=== PATIENT | female | born 1955 | race Caucasian/White ===

== ENCOUNTER → 2016-09-06 | Outpatient (CLI) | payer MEDICARE, BC | END | disposition home or self-care (01) | LOC: LABWHC1 10:43 | PROVIDERS: ATTEND Internal Medicine | DX: E21.3 Hyperparathyroidism, unspecified (principal) | CPT/HCPCS: 36415; 83970 ==

== ENCOUNTER → 2016-11-13 | Outpatient (CLI) | payer MEDICARE, BC ==
--- NOTE | 2016-11-15 08:37 | MM ---
Reason for exam: screening (asymptomatic). Last mammogram was performed 1 year and 8 months ago. History: Patient is postmenopausal and had first child at age 30. Family history of breast cancer in maternal grandmother. Took estrogen for 1 year 2 months. Physical Findings: A clinical breast exam by your physician is recommended on an annual basis and results should be correlated with mammographic findings. MG 3D Screening Mammo W/Cad Bilateral CC and MLO view(s) were taken. Prior study comparison: March 23, 2015, bilateral MG 3d screening mammo w/cad. June 25, 2014, bilateral MG screening mammo w CAD. February 20, 2013, bilateral digital screening mammo w/CAD. April 19, 2011, bilateral digital screening mammo w/CAD. There are scattered fibroglandular densities. There is chronic nodularity in the right breast. Nodular asymmetry lateral right breast anterior to middle depth suspected to represent summation on 3D images. Spot tomosynthesis recommended for confirmation. Nodular focal asymmetry anterior upper outer quadrant left breast appear more defined. ASSESSMENT: Incomplete: need additional imaging evaluation, BI-RAD 0 RECOMMENDATION: Special view mammogram of both breasts. If lesion persists on supplemental views, image directed ultrasound is recommended. [facility] will attempt to contact patient to return for supplemental views and ultrasound if indicated.
== END | disposition home or self-care (01) ==
LOC: RADMAMWWP 15:06
PROVIDERS: ATTEND Internal Medicine
DX: Z12.31 Encounter for screening mammogram for malignant neoplasm of breast (principal)
CPT/HCPCS: 77063; G0202

== ENCOUNTER → 2016-11-19 | Outpatient (CLI) | payer MEDICARE, BC ==
--- NOTE | 2016-11-19 09:21 | MM ---
Reason for exam: additional evaluation requested from abnormal screening. Last mammogram was performed less than 1 month ago. History: Patient is postmenopausal and had first child at age 30. Family history of breast cancer in maternal grandmother. Took estrogen for 1 year 2 months. Physical Findings: Nurse did not find any significant physical abnormalities on exam. MG 3D Work Up W/Cad DONNA Bilateral spot compression CC, spot compression MLO, and LM view(s) were taken. Prior study comparison: November 13, 2016, bilateral MG 3d screening mammo w/cad. March 23, 2015, bilateral MG 3d screening mammo w/cad. June 25, 2014, bilateral MG screening mammo w CAD. The breast tissue is heterogeneously dense. This may lower the sensitivity of mammography. The previously described abnormalities do not persist on additional views. These results were verbally communicated with the patient and result sheet given to the patient on 11/19/16. ASSESSMENT: Negative, BI-RAD 1 RECOMMENDATION: Return to routine screening mammogram schedule for both breasts.
== END | disposition home or self-care (01) ==
LOC: RADMAMWWP 08:23
PROVIDERS: ATTEND Internal Medicine
DX: R92.8 Other abnormal and inconclusive findings on diagnostic imaging of breast (principal)
CPT/HCPCS: G0204; G0279

== ENCOUNTER → 2017-06-27 | Outpatient (CLI) | payer MEDICARE, BC ==
--- NOTE | 2017-06-27 18:07 | PN ---
PROGRESS NOTE DATE OF SERVICE: 06/27/2017 A 62-year-old lady has been followed in the sleep center for treatment of obstructive sleep apnea-hypopnea syndrome. Last time I saw patient about 1-1/2 years ago, she continued to use her equipment successfully every night for the whole night without any significant problems related to mask, pressure or humidification. Sometimes she adjusting her humidity a little bit more up or down, depending with the humidity situation during this time of the year. I checked her CPAP unit. Usage is 100% more than 4 hours. Average usage is 7.8 hours. Pressure is 13 cm of water. Leak is 80 L per minute, which is acceptable. Apnea- hypopnea index reading for the last month only 1.2, which is perfect. [place] Sleepiness Scale is 2, which is totally normal. MEDICATIONS: 1. Claritin. 2. Fluticasone. 3. Fenofibrate. 4. Lortab. 5. Xanax. 6. Flexeril. 7. Ezetimibe. PHYSICAL EXAMINATION: GENERAL Patient in no distress. VITAL SIGNS BP 143/69, HR 90, RR 16, height 5 feet 3 inches, weight 187, BMI 33, temp 97.4, oxygen saturation at room air 96%. HEENT PERRLA, EOMI, evaluation of oropharynx showed tongue protrudes midline, extremely low position of soft palate. Neck Supple, no JVD. Thyroid is not palpable. LUNGS Clear to percussion and to auscultation. Good air exchange. No wheezing or rhonchi. HEART S1, S2 regular. No murmurs, gallops, or rubs. ABDOMEN Slightly obese, soft and nontender. Bowel sounds are present. No organomegaly appreciated. EXTREMITIES No clubbing or cyanosis. CODING QUALITY ANALYST Awake, alert, and oriented X3. Cranial nerves 2 to 7 intact. There is no fasciculation or atrophy. noted. No focal deficits observed. IMPRESSION: 1. Obstructive sleep apnea-hypopnea syndrome. Patient demonstrated 100% compliance with treatment, benefitting from treatment. 2. Obesity. Patient lost about 8 pounds of weight since previous visit. 3. History of depression. 4. History of migraine. 5. Seasonal allergies. 6. Status post surgical treatment of sinus problem. 7. History of peptic ulcer disease. 8. History of chronic back pain. PLAN: 1. Patient will continue to use her CPAP equipment every night. 2. Continue losing weight. 3. Prescription for all necessary CPAP supplies, including mask, tube, filters. 4. No driving if feeling any sleepiness. 5. Followup visit in 1 year or earlier if patient has any problems. Thank you very much for allowing me to participate in the management of your patient. Sincerely, Brandon Murray MD, PhD, FAASM Diplomat of [employer] [place] [employer] Maintenance Service Supervisor of [facility] [place] MMODL / ZAKIAN: [phone] /
== END | disposition home or self-care (01) ==
LOC: SLEEP 15:16
PROVIDERS: ATTEND Internal Medicine
DX: G47.33 Obstructive sleep apnea (adult) (pediatric) (principal); E66.9 Obesity, unspecified; J30.2 Other seasonal allergic rhinitis; Z86.59 Personal history of other mental and behavioral disorders; Z86.69 Personal history of other diseases of the nervous system and sense organs; Z98.890 Other specified postprocedural states; Z87.11 Personal history of peptic ulcer disease; Z87.39 Personal history of other diseases of the musculoskeletal system and connective tissue; Z99.89 Dependence on other enabling machines and devices; Z79.899 Other long term (current) drug therapy; Z79.51 Long term (current) use of inhaled steroids

== ENCOUNTER → 2017-07-29 | Outpatient (CLI) | payer MEDICARE, BC ==
[2017-07-29 13:22] VITALS: BP 127/80; PULSE 90; RESP 16; TEMP 98.6
--- NOTE | 2017-07-29 18:29 | P.CONS ---
History of Present Illness - Reason for Consult Consult date: 07/29/17 - History of Present Illness This is a 62 years old female, with a chronic history of low back pain, started more than 15 years ago, patient had 2 back surgery in the lumbar area, the last surgery was done in 2002, and patient she continue to have some back pain issues after the surgery, but 7 years ago she reported that the intensity of the pain increased significantly, and is interfering with her quality of life and activity of daily livings, patient not able to function, because of the intensity of the pain, but she reported that she had no change in the bowel movement or urination, and there is no motor or sensory deficit, no fever or night sweats, and the pain mostly, and the low back area right side radiated towards the right hip and towards the anterior and medial aspect of the right thigh, associated with numbness and tingling sensation, the intensity of the pain 7/10 and increases occasionally to 10 over 10, it is constant, aggravated with any activity Past Medical History Past Medical History: Asthma, GERD/Reflux, Hyperlipidemia, Osteoarthritis (OA), Sleep Apnea/CPAP/BIPAP, Thyroid Disorder Additional Past Medical History / Comment(s): CHRONIC BACK PAIN. MILD NEUROPATHY. SEASONAL ALLERGIES History of Any Multi-Drug Resistant Organisms: None Reported Past Surgical History: Back Surgery, Hysterectomy, Orthopedic Surgery Additional Past Surgical History / Comment(s): CERVICAL FUSION C6,C7,T1. LUMBAR FUSION L4,L5,S1 ANTERIOR INTERBODY LUMBAR LAMINECTOMY. FUSION WITH METAL PLATE AT L4,L5.S1. CRUSHING RIGHT HAND RECONSTRUCTION. SINUS SURGERY. PARATHYROIDECTOMY. Past Anesthesia/Blood Transfusion Reactions: Postoperative Nausea & Vomiting ( PONV) Past Psychological History: Anxiety, Depression Smoking Status: Former smoker Past Alcohol Use History: Occasional Past Drug Use History: None Reported Medications and Allergies Home Medications Medication Instructions Recorded Confirmed Type ALPRAZolam [Xanax] 0.5 mg PO DAILY PRN 07/29/17 07/29/17 History Albuterol Inhaler [Ventolin Hfa 2 puff INHALATION QID PRN 07/29/17 07/29/17 History Inhaler] Calcium Carb/Vitamin D3/Vit K1 1 tab PO DAILY 07/29/17 07/29/17 History [Citracal Soft Chew] Cyclobenzaprine [Flexeril] 10 mg PO HS PRN 07/29/17 07/29/17 History Ergocalciferol (Vitamin D2) 50,000 unit PO Q7D 07/29/17 07/29/17 History [Vitamin D2] Ezetimibe 10 mg PO DAILY 07/29/17 07/29/17 History Fluticasone Nasal [place] [Flonase 1 spray NASAL DIRECTED PRN 07/29/17 History Nasal [place]] Glucosam/Eddie-Msm1/C/Jim/Bosw 1 tab PO DAILY 07/29/17 07/29/17 History [Glucosamine-Chondroitin Tablet] Hydrocodone/Acetaminophen [[place] 1.5 tab PO BID PRN 07/29/17 07/29/17 History 10-325] Loratadine [Claritin] 10 mg PO DAILY PRN 07/29/17 07/29/17 History Methocarbamol [Robaxin] 500 mg PO DAILY PRN 07/29/17 07/29/17 History Mometasone/Formoterol [Dulera 100 2 puff INHALATION QID PRN 07/29/17 07/29/17 History Mcg/5 Mcg Inhaler] Non-Formulary Drug [Non Formulary 2 tab PO DAILY 07/29/17 07/29/17 History Drug] Nystatin [Nystop] 60 gm PO DAILY 07/29/17 07/29/17 History [place]-3 Fatty Acids/Fish Oil [Fish 1 cap PO DAILY 07/29/17 07/29/17 History Oil 1,000 mg Softgel] Omeprazole [PriLOSEC] 20 mg PO DIRECTED 07/29/17 07/29/17 History Phenylephrine HCl [Sudafed PE] 10 mg PO HS PRN 07/29/17 07/29/17 History Saliva Stimulant Agents Comb.3 1 spray PO HS PRN 07/29/17 07/29/17 History [Biotene Moisturizing Mouth] Allergies Allergy/AdvReac Type Severity Reaction Status Date / Time adhesive tape AdvReac Intermediate SEVERE Verified 07/29/17 12:37 IRRITATION ibuprofen [From Motrin] AdvReac Intermediate SEVERE Verified 07/29/17 12:37 UPSET STOMACH Physical Exam Vitals: Vital Signs Temp Pulse Resp BP Pulse Ox 07/29/17 12:30 98.6 F 90 16 127/80 99 Intake and Output 07/29/17 07/29/17 07/29/17 06:59 14:59 22:59 Other: Weight 84.368 kg Social history : not smoker , NO ETOH , NO Illegal drugs use . Review of Systems : 1- Constitutional : no chills , no fever , no night sweats , 2- Ears : no ear discharge , no change in hearing 3-Nose, Mouth ,Throat ; no bleeding gums, no sore throat , no epistaxis , 4-Cardiovascular : Denies chest pain, , no orthopnea , no palpitation 5-Respiratory : Denies cough , no dyspnea , no hemoptysis 6-Gastrointestinal :, no change in bowel habits , no coffee- ground emesis . 7-Genitourinary : No hematuria , no discharge , no incontinence, 8-Musculoskeletal : No gait dysfunction , report low back pain , 9- Neurological : no ataxia , no tremor , no sezure , 10-Psychatric , no suicidal ideation no hallucination 11- Endocrine : no cold intolerence , no polyuria , no polydypsia , 12-Hematologic : no easy bleeding , no easy brusing , 13-Allergic / immunology : no angioedema , no wheezing ,no allergic rhinitis 14-Integumentary : no brttle nails , no change hair / nails , no foot/leg ulcers . Physical Examinations : 1-Constitutional : Cooperative , not in acute distress . 2-HEENT : nech ; supple , no Lymphadenopathy , no Thyromegaly , :eyes , no icterus, no photophobia . ENT : , normal oropharynx , no Thrush 3- Respiratory : Chest clear to auscultations Bilaterally , no wheezing . 4- Cardiovascular : regular rate and rhythem , S1 , S2 , no S3 , no S4. 5- Gastrointestinal: abdomen soft no tenderness , no organomegally . 6- Genitourinary : Defferred . 7-Integumentary : No cellulitis , no ulcers , normal skin turgor , no cyanotic . 8- neurologic : Cranial nerve II to XII intact , no focal neurological deffecit 9-psychatric : alert , oriented X 3 , appropriate affect , intact judgment and insight . 10-Lymphatic : no Lymphadenopathy. 11- musculoskeltal: normal gait Cervical Spine motor stregnth in the deltoid and biceps, normal right side , normal Left side motor stregnth biceps and the wrist extensors normal right side ,normal left side . motor stregnth in the triceps muscle . normal Right side , normal Left side Lumber spine moter stegnth lower extremities ,thigh and legs 5/5 Right side , 5/5 Left side deep tendon reflexes : normal Knee Jerk , normal ankle Jerk positive lumber facet Loading Test Range of motion of the lumbar spine Flexion 30 degrees, extension 10 degrees strait leg raising test negative bilaterally Fabere test negative bilaterally Sever tenderness over the right trochanteric bursa Results Comments: MRI of the lumbar spine= L2-3 facet arthropathy and foraminal stenosis, L3 4 right lateral bulging disc disease, with facet hypertrophy L4 5 right-sided foraminal stenosis, L5-S1 foraminal stenosis Assessment and Plan Plan: Assessment and plan= 1-lumbar radiculopathy. 2-lumbar foraminal stenosis. 3-lumbar facet arthropathy. 4-right trochanteric bursitis. Patient will be good candidate to have right- sided transforaminal epidural steroid injection L2-3 ,and L3 4 under fluoroscopy guidance (Patient reported that 95% of her pain on the right side, and it will be more beneficial to target the medication towards the painfull area) Procedure risk and benefits and alternatives discussed with the patient and she agreed with proceeding. Patient will continue with her medication/ prescription refill from her primary care. Time with Patient: Greater than 30
== END | disposition home or self-care (01) ==
LOC: PNWHC3 12:13
PROVIDERS: ATTEND Specialist
DX: M99.73 Connective tissue and disc stenosis of intervertebral foramina of lumbar region (principal); M54.16 Radiculopathy, lumbar region; M46.96 Unspecified inflammatory spondylopathy, lumbar region; M70.61 Trochanteric bursitis, right hip; M19.90 Unspecified osteoarthritis, unspecified site; E78.5 Hyperlipidemia, unspecified; K21.9 Gastro-esophageal reflux disease without esophagitis; J45.909 Unspecified asthma, uncomplicated; Z79.891 Long term (current) use of opiate analgesic; Z91.09 Other allergy status, other than to drugs and biological substances; Z79.899 Other long term (current) drug therapy; Z88.6 Allergy status to analgesic agent; Z87.891 Personal history of nicotine dependence
CPT/HCPCS: 99211

== ENCOUNTER 2017-07-30 08:23 | Day surgery (SDC) | payer MEDICARE, BC ==
--- NOTE | 2017-07-30 09:33 | P.PCN ---
Date of Procedure: 07/30/17 Condition: stable Disposition: PACU Description of Procedure: PREOPERATIVE DIAGNOSIS: Lumbar radiculopathy POSTOPERATIVE DIAGNOSIS: Lumbar radiculopathy PROCEDURE 1. Transforaminal epidural steroid injection under fluoroscopic guidance RIGHT L2, L3 2. Lumbar epidurogram ANESTHESIA: Local with 1% lidocaine 3 ml ; IV sedation with Versed 2 mg and fentanyle 100 micrograms. PROCEDURE INDICATION: The patient with low back pain and radiculopathy symptoms unresponsive to conservative treatment. PROCEDURE DESCRIPTION / TECHNIQUE: The patient was seen and identified in the preoperative area. Risks, benefits, complications, and alternatives were discussed with the patient. The patient agreed to proceed with the procedure and signed the consent. IV was started, and vital signs were stable. Patient was taken to the OR and time out was completed. The patient was placed in the prone position on procedure table and a pillow was placed under the abdomen to reduce lumbar lordosis. The lumbosacral area was prepped and draped in the usual sterile fashion. Vital signs were closely monitored during the procedure. Conscious sedation was used. Using oblique fluoroscopy, the chin of the ``Hair dog at RIGHT L2 pedicle and the skin and deeper tissues just below was localized with 1% lidocaine. Subsequently, a 22-gauge 3.5-inch spinal needle was advanced under a tunneled view fluoroscopic guidance just underneath the chin of the ``Hair dog RIGHT L2. Under lateral fluoroscopy, the needle was then advanced to the posterior border of the L2-L3 interforaminal space. After negative aspiration of CSF and blood and with no paresthesias, 1 mL of Omnipaque-240 contrast dye was injected excellent epidurogram and outlining L2 nerve root. Subsequently, of the 10ml solution consisting of 10mg/ml dexamethasone with 8 ml PF normal saline, and 1 ml 0.25% marcaine , 5ml injected at L2-L3 space. Needle was removed and the same procedure was repeated at the Right L3-L4 space. At the end of the procedure, skin was cleansed, and bandages were applied. COMPLICATIONS: None COMMENTS: DISPOSITION / PLANS: The patient was placed in a supine position and transferred to the recovery area in a stable condition for observation. There was no evidence of lower extremity motor or sensory deficit after the procedure. Patient was discharged from the recovery room after meeting discharge criteria. Home discharge instructions were given to the patient by the staff. The patient was reexamined prior to discharge. We'll repeat procedure in 4 weeks time
[2017-07-30] MEDS ORDERED: LACTATED RINGERS 1,000 ML IV SCH (09:45)
[2017-07-30 09:47] VITALS: TEMP 98.1
[2017-07-30] MEDS ORDERED: LACTATED RINGERS 1,000 ML IV ONE (10:02)
[2017-07-30] MEDS ORDERED: LIDOCAINE 1% 20 ML VIAL (10MG/ML) FOR IV START INTRADERMA ONE (10:03)
[2017-07-30 10:37] VITALS: BP 116/69
[2017-07-30 10:57] VITALS: PULSE 71; RESP 20
[2017-07-30] MEDS ORDERED: IV FLUID CONTINUATION 1,000 ML IV ONE (10:58)
--- NOTE | 2017-07-30 11:26 | FL ---
EXAMINATION TYPE: FL guided pain mgmt statistic DATE OF EXAM: 07/30/2017 HISTORY: Flouroscopy time 18 seconds of fluoroscopy provided. IMPRESSION: 1. Fluoroscopy time.
== END 2017-07-30 11:05 | disposition home or self-care (01) ==
LOC: ORPAIN 08:23
PROVIDERS: ATTEND Anesthesiology
DX: M54.16 Radiculopathy, lumbar region (principal); Z91.048 Other nonmedicinal substance allergy status; Z88.6 Allergy status to analgesic agent; Z98.1 Arthrodesis status
CPT/HCPCS: 64483; 64484; J2250; J1100; Q9966; 99152

== ENCOUNTER 2017-08-19 07:03 | Day surgery (SDC) | payer MEDICARE, BC ==
[2017-08-15 12:42] VITALS: BMI 31.7
[~2017-08-19 07:03] MED LIST: LACTATED RINGERS 1,000 ML IV SCH
[2017-08-19 08:16] VITALS: TEMP 98.1
[2017-08-19] MEDS ORDERED: LIDOCAINE 1% 20 ML VIAL (10MG/ML) FOR IV START INTRADERMA ONE (08:17)
--- NOTE | 2017-08-19 09:22 | P.PCN ---
Preoperative Diagnosis: Lumbar postlaminectomy pain syndrome Right lumbar radiculopathy Postoperative Diagnosis: Same as above Procedure(s) Performed: Transforaminal epidural steroid injection for levels L2-3,and L3-4 on the right side under fluoroscopic guidance Anesthesia: MAC (IV conscious sedation with 2 mg of Versed) Surgeon: Jesus Ramsey Condition: stable Disposition: PACU Description of Procedure: . The patient was seen and identified in the preoperative area. Risks, benefits , complications, and alternatives were discussed with the patient. The patient agreed to proceed with the procedure and signed the consent. IV was started, and vital signs were stable. Patient was taken to the OR and time out was completed. The patient was placed in the prone position on procedure table and a pillow was placed under the abdomen to reduce lumbar lordosis. The lumbosacral area was prepped and draped in the usual sterile fashion. Critical pause was taken. Vital signs were closely monitored during the procedure. Conscious sedation was used during the procedure to decrease patients anxiety. Lidocaine 1% was used to numb the skin up at the target points that were chosen as follows: For the L2-L3 level the target point was at the 6 o'clock position of L2 pedicle in the right oblique view. The right view was obtained by scoring of the L2 on L3 vertebra on the AP view of fluoroscopy then the C-arm was tilted to the right oblique position to an angle at which the superior articular process of the lower vertebra wouldn't point to the middle of the pedicle above it at the 6 o'clock position as mentioned above and the right oblique angle of about: Then I used 3-1/2 inch 22-gauge Quincke spinal needle to get to the target point mentioned above by touching the inferior edge of the L2 pedicle and then walking off the bone and into the superior part of the L2-L3 foramen using the lateral view of fluoroscopy. I then injected 1 mL of Isovue contrast dye which showed typical epidurogram around the L2 nerve root and into the epidural space. Then I injected 1 mL of Marcaine 0.25% +40 mg of Kenalog. The same procedure was done at the L3-L4 level. Patient tolerated procedure well.
[2017-08-19 09:27] VITALS: RESP 16
[2017-08-19] MEDS ORDERED: IV FLUID CONTINUATION 1,000 ML IV ONE (09:49)
[2017-08-19 09:50] VITALS: BP 124/76; PULSE 76
--- NOTE | 2017-08-19 10:19 | FL ---
EXAMINATION TYPE: FL guided pain mgmt statistic DATE OF EXAM: 08/19/2017 HISTORY: Flouroscopy time 37 seconds of fluoroscopy provided. IMPRESSION: 1. Fluoroscopy time.
== END 2017-08-19 09:56 | disposition home or self-care (01) ==
LOC: ORPAIN 07:03
PROVIDERS: ATTEND Anesthesiology
DX: M54.16 Radiculopathy, lumbar region (principal); M96.1 Postlaminectomy syndrome, not elsewhere classified; Z88.6 Allergy status to analgesic agent
CPT/HCPCS: 64483; 64484; J2250; J3301; Q9966; 99152

== ENCOUNTER → 2017-09-04 | Outpatient (CLI) | payer MEDICARE, BC ==
[2017-09-04 12:15] VITALS: BP 156/84; PULSE 78; RESP 18
--- NOTE | 2017-09-04 12:35 | P.PN ---
Subjective Progress Note Date: 09/04/17 Principal diagnosis: Lumbar spondylosis without myelopathy Lumbar stenosis status post transforaminal epidural steroid injection Coccydynia This is a 62-year-old female who responded very well to transforaminal epidural steroid injection with decreased pain in her right leg. She denies any bowel or bladder dysfunction at this point. Today she complains of her coccyx pain that she has since she was a child. She takes [place] 10 mg once a day for her pain if needed and she gets that prescribed from her primary care physician. Objective - Vital Signs Vital signs: Vital Signs Temp Pulse 78 09/04/17 12:11 Resp 18 09/04/17 12:11 BP 156/84 09/04/17 12:11 Pulse Ox Intake & Output 09/03/17 09/04/17 09/04/17 18:59 06:59 18:59 Weight 83.915 kg - Constitutional General appearance: Present: obese - EENT Eyes: Present: PERRLA - Respiratory Respiratory: bilateral: CTA - Cardiovascular Rhythm: regular - Neurologic Neurologic: Present: CNII-XII intact - Psychiatric Psychiatric: Present: A&O x's 3, appropriate affect, intact judgment & insight ( She has hyperreactive knee reflexes bilaterally and normal ankle reflexes bilaterally. She has normal muscle strength in the lower extremities. She has tenderness in the lumbar paravertebral area bilaterally and also tenderness and active tip of her coccyx.) Assessment and Plan Plan: I will schedule the patient to have steroid injection on the tip of her coccyx under fluoroscopic guidance. She is to continue using [place] from her primary care physician as needed for her pain. Her right leg pain has improved significantly after that transforaminal epidural steroid injection 2. We will see the patient in 2-4 weeks for the above-mentioned procedure.
== END | disposition home or self-care (01) ==
LOC: PNWHC3 11:48
PROVIDERS: ATTEND Anesthesiology
DX: M99.73 Connective tissue and disc stenosis of intervertebral foramina of lumbar region (principal); M47.816 Spondylosis without myelopathy or radiculopathy, lumbar region; M53.3 Sacrococcygeal disorders, not elsewhere classified; Z79.891 Long term (current) use of opiate analgesic; Z98.890 Other specified postprocedural states
CPT/HCPCS: 99211

== ENCOUNTER 2017-09-30 06:44 | Day surgery (SDC) | payer MEDICARE, BC ==
[2017-09-24 11:06] VITALS: BMI 31.6
[2017-09-30] MEDS ORDERED: LACTATED RINGERS 1,000 ML IV SCH (07:00)
[2017-09-30] MEDS ORDERED: LACTATED RINGERS 1,000 ML IV ONE (07:11)
[2017-09-30] MEDS ORDERED: LIDOCAINE 1% 20 ML VIAL (10MG/ML) FOR IV START INTRADERMA ONE (07:11)
[2017-09-30 07:18] VITALS: RESP 18; TEMP 98
--- NOTE | 2017-09-30 07:55 | P.OP ---
Date of Procedure: 09/30/17 Description of Procedure: PREOPERATIVE DIAGNOSIS: Coccydynia POSTOPERATIVE DIAGNOSIS: Same PROCEDURE: Bilateral coccygeal nerve block with fluoroscopic guidance ANESTHESIA: Local with 1% lidocaine. IV sedation. EBL: None. Surgeon: Alex Quintana MD PROCEDURE INDICATION: This is a very pleasant 62-year-old woman with a history of intractable coccygeal pain. She says this stems from a sledding accident when she was a child. She reports that it is always bothered her however recently has become much more painful. I discussed with her the risks and benefits of performing a coccygeal nerve block. I also mentioned the possibilities of radiofrequency ablation should the temporary blocks afforded her substantial relief that is not long lasting. PROCEDURE DESCRIPTION: The patient was seen and identified in the preoperative area. Risks, benefits, complications, and alternatives were discussed with the patient. The patient agreed to proceed with the procedure and signed the consent. IV was started, and vital signs were stable. Patient was taken to the OR and time out was completed. The patient was placed in the prone position on procedure table and a pillow was placed under the abdomen to reduce lumbar lordosis. The area over the coccyx was prepped and draped in the usual sterile fashion. The fluoroscope was used to identify the sacral hiatus. A 25-gauge needle was entered into the area just below the sacral cornu bilaterally. This was confirmed both AP and lateral projections. After negative aspiration, a solution containing 1 mL of 0.5% bupivacaine and 20 mg of Kenalog was injected on each side. The needles were withdrawn. A sterile bandage was applied. Patient was then transported to recovery room in stable condition. COMPLICATIONS: None DISPOSITION / PLANS: The patient was placed in a supine position and transferred to the recovery area in a stable condition for observation and was discharged from the recovery room after meeting discharge criteria. Home discharge instructions given to the patient by the staff. The patient was reexamined prior to discharge. The patient will schedule a follow up in the clinic in 2-4 weeks. Patient previously reports receiving excellent benefit from a right L2-3 transforaminal epidural steroid injection. She does report that the pain she has in her right thigh is starting to return. She is requesting a repeat of this procedure. We will schedule this for her in the near future.
[2017-09-30 08:34] VITALS: BP 120/74; PULSE 64
--- NOTE | 2017-09-30 09:30 | FL ---
Fluoroscopy HISTORY: Pain 1 seconds fluoroscopy time supplied to the referring clinician. 1 intraoperative C-arm images docume nt the procedure. See dictated report from anesthesia.
== END 2017-09-30 08:52 | disposition home or self-care (01) ==
LOC: ORPAIN 06:44
PROVIDERS: ATTEND Pain Medicine Pain Medicine
DX: M53.3 Sacrococcygeal disorders, not elsewhere classified (principal); M47.816 Spondylosis without myelopathy or radiculopathy, lumbar region; M48.061 Spinal stenosis, lumbar region without neurogenic claudication; E66.9 Obesity, unspecified; Z68.31 Body mass index [BMI] 31.0-31.9, adult; E11.9 Type 2 diabetes mellitus without complications
CPT/HCPCS: 64450; J2250; J3301; 20553

== ENCOUNTER 2017-10-14 06:37 | Day surgery (SDC) | payer MEDICARE, BC ==
[2017-10-10 15:37] VITALS: BMI 31.6
[2017-10-14 07:33] VITALS: TEMP 98.2
[2017-10-14] MEDS ORDERED: LIDOCAINE 1% 20 ML VIAL (10MG/ML) FOR IV START INTRADERMA ONE (07:46)
--- NOTE | 2017-10-14 08:37 | P.PCN ---
Date of Procedure: 10/14/17 Surgeon: Jesus Ramsey Description of Procedure: Preoperative Diagnosis: Lumbar postlaminectomy pain syndrome lumbar radiculopathy Postoperative Diagnosis: Same as above Procedure(s) Performed: Interlaminar epidural steroid injection under fluoroscopic guidance Anesthesia: MAC (IV conscious sedation with 2 mg of Versed) Surgeon: Jesus Ramsey Condition: stable Disposition: PACU Description of Procedure: The patient was seen and identified in the preoperative area. Risks, benefits, complications including but not limited to infections ,bleeding ,allergic reaction to the medications ,nerve damage and not complete pain relief , and alternatives were discussed with the patient. The patient agreed to proceed with the procedure and signed the consent. IV was started, and vital signs were stable. Patient was taken to the OR and time out was completed. The patient was placed in the prone position on procedure table and a pillow was placed under the abdomen to reduce lumbar lordosis. The lumbosacral area was prepped and draped in the usual sterile fashion with Betadine 3.Patient was closely monitored during the procedure. Conscious sedation was used during the procedure to decrease patients anxiety. Vital signs were monitered during the entire procedure. Using anterior-posterior fluoroscopy, the L2-3 interlaminar space was identified and the skin over this site was marked and then infiltrated with 1% lidocaine subcutaneously. Subsequently, a 20-gauge Tuohy epidural needle was inserted and advanced toward the epidural space using the Loss of resistance to air technique and guided by AP and lateral fluoroscopy. The correct needle position in the epidural space was verified with the injection of 1 mL of the water soluble contrast dye Isovue contrast and observing an excellent epidurogram with the epidural spread of the dye, after negative aspiration for blood and CSF and in the absence of paresthesias. The epidural space was about 5.5 cm deep from the skin at this level. The epidural space was about 5.5 cm deep from skin .Again after negative aspiration, a 8 ml mixture containing 80 mg of Kenalog and 5 ml of preservative free Normal Saline, and 1 ml of preservative free Ropivacaine 0.5% solution was injected and a washout of epidurogram was seen. Needle was withdrawn intact, skin was cleansed, and bandages were applied. patient tolerated procedure well and was transferred to PACU in stable condition. COMPLICATIONS: None .
[2017-10-14 08:40] VITALS: RESP 18
[2017-10-14] MEDS ORDERED: LACTATED RINGERS 1,000 ML IV ONE (08:45)
[2017-10-14 08:56] VITALS: BP 118/71; PULSE 76
--- NOTE | 2017-10-14 10:02 | FL ---
Fluoroscopy HISTORY: Pain 4 seconds fluoroscopy time supplied to the referring clinician. 2 intraoperative C-arm images docume nt the procedure. See dictated report from anesthesia.
== END 2017-10-14 09:15 | disposition home or self-care (01) ==
LOC: ORPAIN 06:37
PROVIDERS: ATTEND Anesthesiology
DX: M96.1 Postlaminectomy syndrome, not elsewhere classified (principal); M54.16 Radiculopathy, lumbar region; Z88.6 Allergy status to analgesic agent
CPT/HCPCS: 62323; J2250; J3301; J3010; Q9966; 99152

== ENCOUNTER 2017-10-29 06:28 | Day surgery (SDC) | payer MEDICARE, BC ==
[2017-10-23 10:53] VITALS: BMI 31.7
[2017-10-29 06:58] VITALS: TEMP 99
[2017-10-29] MEDS ORDERED: LIDOCAINE 1% 20 ML VIAL (10MG/ML) FOR IV START INTRADERMA ONE (07:00)
--- NOTE | 2017-10-29 07:24 | P.PCN ---
Date of Procedure: 10/29/17 Surgeon: Jesus Ramsey Description of Procedure: Surgeon: Jesus Ramsey Description of Procedure: Preoperative Diagnosis: Lumbar postlaminectomy pain syndrome lumbar radiculopathy Postoperative Diagnosis: Same as above Procedure(s) Performed: Interlaminar epidural steroid injection under fluoroscopic guidance Anesthesia: MAC (IV conscious sedation with 2 mg of Versed) Surgeon: Jesus Ramsey Condition: stable Disposition: PACU Description of Procedure: The patient was seen and identified in the preoperative area. Risks, benefits, complications including but not limited to infections ,bleeding ,allergic reaction to the medications ,nerve damage and not complete pain relief , and alternatives were discussed with the patient. The patient agreed to proceed with the procedure and signed the consent. IV was started, and vital signs were stable. Patient was taken to the OR and time out was completed. The patient was placed in the prone position on procedure table and a pillow was placed under the abdomen to reduce lumbar lordosis. The lumbosacral area was prepped and draped in the usual sterile fashion with Betadine 3.Patient was closely monitored during the procedure. Conscious sedation was used during the procedure to decrease patients anxiety. Vital signs were monitered during the entire procedure. Using anterior-posterior fluoroscopy, the L2-3 interlaminar space was identified and the skin over this site was marked and then infiltrated with 1% lidocaine subcutaneously. Subsequently, a 20-gauge Tuohy epidural needle was inserted and advanced toward the epidural space using the Loss of resistance to air technique and guided by AP and lateral fluoroscopy. The correct needle position in the epidural space was verified with the injection of 1 mL of the water soluble contrast dye Isovue contrast and observing an excellent epidurogram with the epidural spread of the dye, after negative aspiration for blood and CSF and in the absence of paresthesias. The epidural space was about 5.5 cm deep from the skin at this level. After negative aspiration, a 7 ml mixture containing 40 mg of Kenalog and 4 ml of preservative free Normal Saline , and 2 ml of preservative free Ropivacaine 0.5% solution was injected and a washout of epidurogram was seen. Needle was withdrawn intact, skin was cleansed , and bandages were applied. patient tolerated procedure well and was transferred to PACU in stable condition. COMPLICATIONS: None .
[2017-10-29] MEDS ORDERED: IV FLUID CONTINUATION 1,000 ML IV ONE (07:30)
[2017-10-29 07:32] VITALS: RESP 18
[2017-10-29 07:50] VITALS: BP 123/70; PULSE 77
--- NOTE | 2017-10-29 08:04 | FL ---
EXAMINATION TYPE: FL guided pain mgmt statistic DATE OF EXAM: 10/29/2017 HISTORY: Flouroscopy time 7 seconds of fluoroscopy provided. IMPRESSION: 1. Fluoroscopy time.
== END 2017-10-29 08:00 | disposition home or self-care (01) ==
LOC: ORPAIN 06:28
PROVIDERS: ATTEND Anesthesiology
DX: M96.1 Postlaminectomy syndrome, not elsewhere classified (principal); M51.16 Intervertebral disc disorders with radiculopathy, lumbar region; Z88.6 Allergy status to analgesic agent
CPT/HCPCS: 62323; J2250; J3301; Q9966

== ENCOUNTER → 2017-12-03 | Outpatient (CLI) | payer MEDICARE, BC ==
[2017-12-03 12:58] VITALS: RESP 16
[2017-12-03 13:08] VITALS: BP 169/87; PULSE 83
--- NOTE | 2017-12-03 15:06 | P.PAINPG ---
Subjective Progress Note Date: 12/03/17 Principal diagnosis: Left lumbar radicular pain This pleasant 62-year-old woman with a history of low back pain and left-sided hip and leg pain. She reports that she underwent a lumbar epidural steroid injection on October 29. She then began having symptoms on November 13. These included cramping of her left sided toes as well as pain into her left hip. She is questioning as to whether this is a spinal fluid leak. She attributes her symptoms to her procedure. She has been on 2 different Medrol dose packs. She has seen her primary care physician for this. She is scheduled to have a lumbar spine MRI performed in the near future. She reports she can control the pain when she is taking the Medrol Dosepak. She also reports that the combination of Parker and Robaxin 10 to help control her pain. She is scheduled to see her neurosurgeon in the near future as well. She reports that she is much better symptom joshi since starting the Medrol Dosepak's. Objective - Vital Signs Vital signs: Vital Signs Temp Pulse 83 12/03/17 12:47 Resp 16 12/03/17 12:47 BP 169/87 12/03/17 12:47 Pulse Ox 96 12/03/17 12:47 Intake & Output 12/02/17 12/03/17 12/03/17 18:59 06:59 18:59 Weight 83.007 kg - Exam General: The patient is alert and oriented. Patient is not sedated Patient answers all question appropriately. Cardiac: Heart is regular in rate and rhythm Respiratory: Clear to auscultation. No audible wheezes. Abdomen: Soft nontender nondistended. Lower extremities: Strength is normal bilaterally. Sensation is normal bilaterally. Reflexes are preserved and symmetric bilaterally. Straight leg raise is negative bilaterally. Assessment and Plan (1) Lumbar radicular pain Current Visit: Yes Status: Acute Code(s): M54.16 - RADICULOPATHY, LUMBAR REGION SNOMED Code(s): 618593912 Plan: Plan of Care 1. Medications: Patient will continue to utilize medications as prescribed by her primary care physician. 2. Interventions: No interventions are indicated this time. I would like the patient to follow-up with her neurosurgeon to discuss the results of her MRI and consider interventions if indicated. I did explain to her that I do not think she is suffering from any kind of spinal fluid leak since her symptoms began about 2 weeks after the procedure and she never complained of any type of headache or ringing in her ears or any sort of positional component to her symptoms. Her pain may be from a herniated disc at this location which has nothing to do with her procedure but we will need to review the MRI results to determine this. 3. Referrals: Patient will follow up with her neurosurgeon after she receives her MRI 4. Testing: She will dissipate in the scheduled lumbar spine MRI 5. Follow-up: She'll follow-up in our clinic to discuss results of her conversation with her neurosurgeon as well as her lumbar spine MRI. PQRS Measure Charge Sheet Measure #130: Documentation of Current Meds in Medical Chart: Patient not eligible for medications to be documented Measure #226: Tobacco Use: Screen & Cessation Intervention: Pt not a tobacco user Measure #111: Pneumonia Vaccination: Pneumococcal vaccine NOT administered or previously given Measure #47: Advance Care Plan: Advance care planning discussed & documented, pt chose/unable to give Measure #412: Opioid Treatment Agreement: No documentation of signed opioid treatment agreement Measure #408: Opioid Therapy Follow-up Evaluation: Patient had NO f/u eval minimum every 3 months during opioid therapy Measure #317: Preventitive Care & Scrn High Bld Press & F/U: Pre-hypertensive or hypertensive BP documented, pt will f/u with PCP Measure #128: Body Mass Index (BMI) Screening & Follow-up: BMI documented ABOVE normal parameters - f/u documented Measure #131: Pain Assessment & Follow-up: Pain positive & plan documented Measure #431: Unhealthy Alcohol Use Preventative Care & Scrn: Patient not identified as an unhealthy alcohol user PQRS Narrative: Smoking Status Former smoker Do You Want the Pneumonia Vaccine Up to Date Vaccine AT THIS TIME? Blood Pressure 169/87 Pain Intensity [Left Lower 2 Back] Scale Used Numeric (1 - 10) Hx Alcohol Use (MH) Yes: OCCASIONAL Home Medications: Ambulatory Orders ALPRAZolam [Xanax] 0.5 mg PO DAILY PRN 07/29/17 Albuterol Inhaler [Ventolin Hfa Inhaler] 2 puff INHALATION QID PRN 07/29/17 Cyclobenzaprine [Flexeril] 10 mg PO HS PRN 07/29/17 Ezetimibe 10 mg PO DAILY 07/29/17 Fluticasone Nasal [place] [Flonase Nasal [place]] 1 spray NASAL DAILY PRN 07/29/17 Hydrocodone/Acetaminophen [Parker 10-325] 1 tab PO BID PRN 07/29/17 Loratadine [Claritin] 10 mg PO DAILY 07/29/17 Methocarbamol [Robaxin] 2 tab PO DAILY PRN 07/29/17 Mometasone/Formoterol [Dulera 100 Mcg/5 Mcg Inhaler] 2 puff INHALATION QID PRN 07/29/17 Nystatin [Nystop] 60 gm TOPICAL DAILY 07/29/17 Omeprazole [PriLOSEC] 20 mg PO AC-BRKFST PRN 07/29/17 Phenylephrine HCl [Sudafed PE] 10 mg PO HS PRN 07/29/17 Saliva Stimulant Agents Comb.3 [Biotene Moisturizing Mouth] 1 spray PO HS PRN Alendronate Sodium [Fosamax] 40 mg PO MO 09/24/17 Cholecalciferol [Vitamin D3] 2,000 unit PO DAILY 10/10/17 Controlled Substance Measures - Controlled Substance Measures Is patient prescribed a controlled substance at discharge?: No
== END | disposition home or self-care (01) ==
LOC: PNWHC3 12:22
PROVIDERS: ATTEND Pain Medicine Pain Medicine
DX: M54.16 Radiculopathy, lumbar region (principal); Z87.891 Personal history of nicotine dependence; Z79.899 Other long term (current) drug therapy; Z79.891 Long term (current) use of opiate analgesic
CPT/HCPCS: 99211

== ENCOUNTER → 2017-12-19 | Outpatient (CLI) | payer MEDICARE, BC ==
[2017-12-19 12:26] VITALS: BP 109/81; PULSE 87; RESP 18
--- NOTE | 2017-12-19 12:55 | P.PN ---
Subjective Progress Note Date: 12/19/17 This is a 62-year-old lady with history of lumbar fusion and continuous mostly axial lower back pain. The pain affects the patient's daily activities and her quality of life. The patient became emotional several times during the interview because of this affect. She denies any bowel or bladder dysfunction but she does get weakness in both legs with repetitive movements like climbing the stairs. She had an MRI on the lumbar spine which showed mass effect on the left L3 nerve root and facet arthropathy. Today, pt denies new-onset weakness, bowel/bladder incontinence, or any other signs or symptoms of cauda equina syndrome. There are no signs of acute intoxication, and no indications of medication diversion or overuse. In addition to above, 13-point review of systems is also negative for chest pain , shortness of breath, changes in vision, changes in hearing, new onset weakness , abdominal pain, diarrhea, extreme fatigue, malaise, fever, skin changes, homicidal or suicidal ideation, or bowel or bladder incontinence. 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 Explanation: Opioid and psychological risk scores were reviewed. Diagnoses , prognoses, and multiple treatment options including but not limited to physical therapy, interventional therapies, adjuvant medical therapies, narcotic medication therapies, and surgery were discussed with the patient and all questions were answered to the patient's satisfaction. 2. Opioid agreement: The patient receives [employer] from her primary care physician 3. Counseling: The patient was counseled extensively on SMOKING CESSATION, BODY MASS INDEX, EXERCISE. Specifically, the patient was instructed regarding the importance of smoking cessation, obesity, and exercise in the context of both chronic pain and overall health. 4. Procedures: Scheduled for lumbar bilateral medial branch block diagnostically under fluoroscopic guidance for the levels above her fusion levels including L1-L2, L2-L3, and L3-L4 5. Consultations: The patient is to contact her neurosurgeon with the new findings on her last MRI 6. Investigations: None 7. Medications: None prescribed from our clinic 8. Disposition: Return to clinic for the above-mentioned procedure Objective - Vital Signs Vital signs: Vital Signs Temp Pulse 87 12/19/17 12:17 Resp 18 12/19/17 12:17 BP 109/81 12/19/17 12:17 Pulse Ox 99 12/19/17 12:17 Intake & Output 12/18/17 12/19/17 12/19/17 18:59 06:59 18:59 Weight 82.1 kg
== END | disposition home or self-care (01) ==
LOC: PNWHC3 11:53
PROVIDERS: ATTEND Anesthesiology
DX: M96.1 Postlaminectomy syndrome, not elsewhere classified (principal); M46.86 Other specified inflammatory spondylopathies, lumbar region; G54.8 Other nerve root and plexus disorders; Z98.1 Arthrodesis status; Z79.891 Long term (current) use of opiate analgesic
CPT/HCPCS: 99211

== ENCOUNTER 2017-12-25 09:19 | Day surgery (SDC) | payer MEDICARE, BC ==
[2017-12-20 09:09] VITALS: BMI 31.2
[2017-12-25 09:45] VITALS: TEMP 98.1
--- NOTE | 2017-12-25 10:37 | P.PCN ---
Date of Procedure: 12/25/17 Procedure(s) Performed: PREOPERATIVE DIAGNOSIS : 1- Lumbar spondylosis with Facet Arthropathy without myelopathy . 2- Lumber degenerative disc disease POSTOPERATIVE DIAGNOSIS: 1- Lumbar spondylosis with Facet Arthropathy without myelopathy . 2- Lumber degenerative disc disease PROCEDURE: Diagnostic bilateral L1-2 , L2-3 , and L3-4 medial branch block under fluoroscopy ANESTHESIA: Local with Ropivacain 0.5 % , moderate sedation with intravenous Versed 2 mg . EBL: Minimal COMPLICATION: None. IV FLUIDS: 100 mL of normal saline. PROCEDURE INDICATION: Chronic low back pain secondary to Facet arthropathy unresponsive to conservative treatment. PROCEDURE DESCRIPTION: the patient was seen and identified in the preop holding area , risks and benefits and possible complications of the procedure and alternative were discussed with the patient, and the patient agreed to proceed with the procedure and signed the consent IV was started and vital signs monitored during the procedure and fluoroscopy was used to maximize the benefit and accuracy of the needle placement, and sedation was given to decrease patient anxiety, patient was taken to the procedure room and placed in prone position vital signs monitored in the back prepped with chlorhexidine X3 then under strict sterile technique using a right oblique fluoroscopy ,the junction of the transverse process and the superior articulating process of the right L1-2, L2-3, and L3-4 vertebra which corresponding to the fluoroscopy image of the eye of the Hair dog on the block side for the medial branches and subsequently , after local infiltration of skin and subcu tissuies with Ropivacaine 0.5 % , one mL at each level , then 25-gauge Quincke-type needles , 3 needle was used , each one of them placed at the junction of the base of the transverse process and the superior articular process at the appropriate level, and the needle was advanced until the periosteum contacted, needle placement confirmed with AP oblique and lateral view and after appropriate needle placement confirmed, and after negative aspiration for heme and CSF and there was no paresthesia 1-1/2 mL of Ropivacaine 0.5% , then half mL injected at each level after negative aspiration the needle subsequently removed and the same procedure repeated for the left side at left side at L1-2 , L2-3, and L3-4 levels. At the end of the procedure and the needles removed and a bandage applied after the skin was cleaned the cleaning solution patient taken to recovery room in stable condition and monitors in the recovery room for 20-30 minutes and discharged home in stable condition after discharge criteria met and patient will follow up with the pain clinic in 2-4 weeks no steroid was used for the procedur.
[2017-12-25] MEDS ORDERED: IV FLUID CONTINUATION 1,000 ML IV ONE ×2 (10:41)
[2017-12-25 10:46] VITALS: PULSE 73; RESP 18
[2017-12-25 11:09] VITALS: BP 137/82
--- NOTE | 2017-12-25 14:26 | FL ---
Fluoroscopy HISTORY: Pain 8 seconds fluoroscopy time supplied to the referring clinician. 3 intraoperative C-arm images docume nt the procedure. See dictated report from anesthesia.
== END 2017-12-25 11:17 | disposition home or self-care (01) ==
LOC: ORPAIN 09:19
PROVIDERS: ATTEND Specialist
DX: G89.29 Other chronic pain (principal); M47.816 Spondylosis without myelopathy or radiculopathy, lumbar region; G47.33 Obstructive sleep apnea (adult) (pediatric); E07.9 Disorder of thyroid, unspecified; J45.909 Unspecified asthma, uncomplicated; Z88.6 Allergy status to analgesic agent; Z91.09 Other allergy status, other than to drugs and biological substances
CPT/HCPCS: 64493; 64494; 64495; J2250; 99152

== ENCOUNTER 2018-01-06 08:55 | Day surgery (SDC) | payer MEDICARE, BC ==
[2018-01-01 10:37] VITALS: BMI 31.7
[2018-01-06 09:23] VITALS: RESP 16; TEMP 98
[2018-01-06] MEDS ORDERED: LIDOCAINE 1% 20 ML VIAL (10MG/ML) FOR IV START INTRADERMA ONE (09:28)
--- NOTE | 2018-01-06 10:23 | P.PCN ---
Date of Procedure: 01/06/18 Procedure(s) Performed: PREOPERATIVE DIAGNOSIS:1- Lumbar spondylosis with Facet Arthropathy without myelopathy . 2- Lumber degenerative disc disease. 3- Failed back surgery syndrome lumbar POSTOPERATIVE DIAGNOSIS: 1- Lumbar spondylosis with Facet Arthropathy without myelopathy . 2- Lumber degenerative disc disease. 3- Failed back surgery syndrome lumbar PROCEDURE: Diagnostic bilateral L1-2 ,L2-3 ,L3 -4 ,medial branch block under fluoroscopy ANESTHESIA: Local with Ropivacain 0.5 % 6 ml , moderate sedation with intravenous Versed 2 mg and Fentanyl 50 mcg. EBL: Minimal COMPLICATION: None. IV FLUIDS: 100 mL of normal saline. PROCEDURE INDICATION: Chronic low back pain secondary to Facet arthropathy unresponsive to conservative treatment. PROCEDURE DESCRIPTION: the patient was seen and identified in the preop holding area , risks and benefits and possible complications of the procedure and alternative were discussed with the patient, and the patient agreed to proceed with the procedure and signed the consent IV was started and vital signs monitored during the procedure and fluoroscopy was used to maximize the benefit and accuracy of the needle placement, and sedation was given to decrease patient anxiety, patient was taken to the procedure room and placed in prone position vital signs monitored in the back prepped with chlorhexidine X3 then under strict sterile technique using a right oblique fluoroscopy ,the junction of the transverse process and the superior articulating process of the right L1-2 , L2-3 , L3- 4 vertebra which corresponding to the fluoroscopy image of the eye of the Hair dog on the block side for the medial branches and subsequently , after local infiltration of skin and subcu tissuies with Ropivacaine 0.5 % , one mL at each level , then 25-gauge Quincke-type needles , 3 needle was used , each one of them placed at the junction of the base of the transverse process and the superior articular process at the appropriate level, and the needle was advanced until the periosteum contacted, needle placement confirmed with AP oblique and lateral view and after appropriate needle placement confirmed, and after negative aspiration for heme and CSF and there was no paresthesia 1-1/2 mL of Ropivacaine 0.5% mixed with 20 mg Kenalog , then half mL injected at each level after negative aspiration the needle subsequently removed and the same procedure repeated for the left side at left side at L1-2 , L2-3 , L3-4 levels. At the end of the procedure and the needles removed and a bandage applied after the skin was cleaned the cleaning solution patient taken to recovery room in stable condition and monitors in the recovery room for 20-30 minutes and discharged home in stable condition after discharge criteria met and patient will follow up with the pain clinic in 2-4 weeks
[2018-01-06] MEDS ORDERED: IV FLUID CONTINUATION 1,000 ML IV ONE (10:27)
[2018-01-06 10:46] VITALS: BP 139/84; PULSE 72
--- NOTE | 2018-01-06 11:36 | FL ---
EXAMINATION TYPE: FL guided pain mgmt statistic DATE OF EXAM: 01/06/2018 HISTORY: Flouroscopy time 18 seconds of fluoroscopy provided. IMPRESSION: 1. Fluoroscopy time.
== END 2018-01-06 11:05 | disposition home or self-care (01) ==
LOC: ORPAIN 08:55
PROVIDERS: ATTEND Specialist
DX: G89.29 Other chronic pain (principal); M47.816 Spondylosis without myelopathy or radiculopathy, lumbar region; M51.36 Other intervertebral disc degeneration, lumbar region; M96.1 Postlaminectomy syndrome, not elsewhere classified; Z90.710 Acquired absence of both cervix and uterus
CPT/HCPCS: 64493; 64494; 64495; J2250; J3301; J3010; 99152

== ENCOUNTER → 2018-01-10 | Outpatient (CLI) | payer MEDICARE, BC ==
--- NOTE | 2018-01-10 09:24 | CT ---
EXAMINATION TYPE: CT lumbar spine wo con DATE OF EXAM: 01/10/2018 8:02 AM COMPARISON: MRI lumbar spine dated 12/12/2017 HISTORY: lumbar stenosis CT DLP: 858.80 mGycm Automated exposure control for dose reduction was used. TECHNIQUE: Unenhanced CT of the lumbar spine was performed. Bone and soft tissue window settings are submitted as well as coronal and sagittal reconstructions. FINDINGS: Pedicular screws and fixation rods traverse the right aspect of the L4-S1 vertebral bodies from unila teral posterior fusion. There is no evidence of hardware fracture. No postoperative malalignment. Par tial osseous fusion of L4-L5 and L5-S1 are seen. Intervertebral disc spacers are also noted. Disc jb iccation is seen at L2-L3 and L3-L4. There is a very mild levoscoliotic curvature of the lumbar spine that could be positional. L1-L2: There is a broad-based disc bulge resulting in mild bilateral neural foraminal narrowing. No a ppreciable spinal canal stenosis. L2-L3: There is a broad-based disc bulge, mild facet arthropathy, and minimal ligamentum flavum buckl ing resulting in mild to moderate right neural foraminal narrowing, severe left neural foraminal narr owing and mild spinal canal stenosis. Additionally there is a left paracentral disc herniation/extrus ion with caudal extension along the posterior aspect of the L3 vertebral body impressing upon the nancy ral foramen and exiting L2 nerve root. Caudal extension appears to be 6.5 mm. L3-L4: There is a broad-based disc bulge and facet arthropathy, right greater than left as well as mi ld ligamentum flavum buckling. This results in mild bilateral neural foraminal narrowing and mild spi nal canal stenosis. L4-S1: Evaluation is slightly limited secondary to spray artifact from postoperative change. There is resection of the posterior elements. No neural foraminal narrowing. No appreciable spinal canal sten osis. Assessment of epidural fibrosis is limited. IMPRESSION: 1. Redemonstration of a left paracentral disc herniation with caudal extrusion of a sequestered disc fragment at L2-L3 extending posterior to the L3 vertebral body and extending into the left neural for amen creating mild spinal canal stenosis and severe left neural foraminal narrowing impinging on the exiting L2 nerve root. Additionally there is question mass effect upon the forming L3 nerve root. 2. Multilevel degenerative disc disease and postoperative changes of the lumbar spine as described ab mague. Evaluation for epidural fibrosis is limited without contrast.
== END ==
LOC: RADCTMAIN 07:32
PROVIDERS: ATTEND Neurological Surgery
DX: M48.061 Spinal stenosis, lumbar region without neurogenic claudication (principal); M99.73 Connective tissue and disc stenosis of intervertebral foramina of lumbar region; M51.26 Other intervertebral disc displacement, lumbar region; M51.36 Other intervertebral disc degeneration, lumbar region; M46.96 Unspecified inflammatory spondylopathy, lumbar region; M41.86 Other forms of scoliosis, lumbar region; Z98.890 Other specified postprocedural states
CPT/HCPCS: 72131

== ENCOUNTER → 2018-01-22 | Outpatient (CLI) | payer MEDICARE, BC ==
[2018-01-22 13:44] VITALS: PULSE 76; RESP 16
--- NOTE | 2018-01-22 14:16 | P.PAINPG ---
Subjective Progress Note Date: 01/22/18 This is follow-up visit for this patient with a history of severe and chronic low back pain secondary to lumbar degenerative disc disease, lumbar facet arthropathy, patient had history of L4 5 and L5-S1 lumbar fusions. We have done an interventional pain procedure agnostic medial branch block lumbar area bilaterally L1-2/L2-3/L3 4 , 2 and patient reported that her pain level was 7/10 before the block. And the pain decreased to 2/10 after the block, and the same happened after the second block The patient currently on [place] 10/325 every 6 hours and Robaxin 500 every morning and 1000 mg at bedtime Patient denies any side effect of the medication , patient denies any excessive drowsiness or sleepiness, patient denies any suicidal ideation, Patient reported that the current medication is helping to control the pain and improve the activity of daily livings, Patient denies any motor or sensory deficit, denies any change in the bowel movement or urination, patient denies any fever or night sweats. Objective - Vital Signs Vital signs: Vital Signs Temp Pulse 76 01/22/18 13:36 Resp 16 01/22/18 13:36 BP Pulse Ox 96 01/22/18 13:36 Intake & Output 01/21/18 01/22/18 01/22/18 18:59 06:59 18:59 Weight 84.822 kg - Exam Physical Examinations : 1-Constitutiona : Cooperative , not in acute distress . 2-HEENT : nech ; supple , no Lymphadenopathy , normal thyroid size . eyes : no ptosis , no icterus, no photophobia . ENT : normal of hearing , normal oropharynx , no Thrush . 3- Respiratory : Chest clear to auscultations Bilaterally , no wheezing , no Rhonchi . 4- Cardiovascular : regular rate and rhythem , S1 , S2 , no S3 , no S4. 5- Gastrointestinal : abdomen soft no tenderness , bowel sounds , no organomegally . 6- Genitourinary : Defferred . 7- neurologic : Cranial nerve II to XII intact , no focal neurological deffecit . 8-psychatric : alert , oriented X 3 , appropriate affect , intact judgment and insight . 9-Lymphatic : no Lymphadenopathy . 10- musculoskeltal : Lumber spine moter stegnth lower extremities , thigh and legs 5/5 Right side , 5/5 Left side deep tendon reflexes : normal Knee Jerk , normal ankle Jerk positive lumber facet Loading Test Assessment and Plan Plan: Assessment and plan= chronic severe low back pain secondary to lumbar spondylosis with lumbar facet arthropathy She had a good result after the diagnostic medial branch block lumbar area. Patient will be good candidate to have radiofrequency ablation of the medial branch lumbar area L1-2, L2-3 ,L3-4 Time with Patient: Less than 30 PQRS Measure Charge Sheet Measure #130: Documentation of Current Meds in Medical Chart: Patient's medications documented in chart Measure #226: Tobacco Use: Screen & Cessation Intervention: Pt not a tobacco user Measure #111: Pneumonia Vaccination: Pneumococcal vaccine administered or previously received Measure #47: Advance Care Plan: Advance care planning discussed & documented, pt chose/unable to give Measure #412: Opioid Treatment Agreement: No documentation of signed opioid treatment agreement Measure #408: Opioid Therapy Follow-up Evaluation: Patient had NO f/u eval minimum every 3 months during opioid therapy Measure #317: Preventitive Care & Scrn High Bld Press & F/U: Pre-hypertensive or hypertensive BP documented, pt will f/u with PCP Measure #128: Body Mass Index (BMI) Screening & Follow-up: BMI documented ABOVE normal parameters - f/u documented Measure #131: Pain Assessment & Follow-up: Pain positive & plan documented, Follow-up scheduled Measure #431: Unhealthy Alcohol Use Preventative Care & Scrn: Patient not identified as an unhealthy alcohol user PQRS Narrative: Smoking Status Former smoker Do You Want the Pneumonia No Vaccine AT THIS TIME? Pain Intensity [Bilateral 1 Lower Back] Scale Used Numeric (1 - 10) Hx Alcohol Use (MH) Yes: OCCASIONAL Home Medications: Ambulatory Orders ALPRAZolam [Xanax] 0.5 mg PO DAILY PRN 07/29/17 Albuterol Inhaler [Ventolin Hfa Inhaler] 2 puff INHALATION QID PRN 07/29/17 Cyclobenzaprine [Flexeril] 10 mg PO HS PRN 07/29/17 Ezetimibe 10 mg PO DAILY 07/29/17 Fluticasone Nasal [place] [Flonase Nasal [place]] 1 spray NASAL DAILY PRN 07/29/17 Hydrocodone/Acetaminophen [[place] 10-325] 1 tab PO TID 07/29/17 Loratadine [Claritin] 10 mg PO DAILY 07/29/17 Methocarbamol [Robaxin] 500 mg PO QAM 07/29/17 Mometasone/Formoterol [[place] 100 Mcg/5 Mcg Inhaler] 2 puff INHALATION QID PRN 07/29/17 Nystatin [Nystop] 60 gm TOPICAL DAILY PRN 07/29/17 Omeprazole [PriLOSEC] 20 mg PO TUFR 07/29/17 Phenylephrine HCl [Sudafed PE] 10 mg PO HS PRN 07/29/17 Saliva Stimulant Agents Comb.3 [Biotene Moisturizing Mouth] 1 spray PO HS PRN Alendronate Sodium [Fosamax] 40 mg PO MO 09/24/17 Cholecalciferol [Vitamin D3] 2,000 unit PO DAILY 10/10/17 Methocarbamol [Robaxin] 1,000 mg PO HS 12/20/17 Zolpidem Tartrate [Ambien] 10 mg PO HS PRN 01/06/18 Controlled Substance Measures - Controlled Substance Measures Is patient prescribed a controlled substance at discharge?: No When asked, does pt state using other controlled substances?: No If prescribed controlled substance>3 days was MAPS reviewed?: No If Rx opioid, was Start Talking consent form obtained?: No If opioid is for acute pain is fill amount 7 days or less?: No Was information provided regarding opioid addiction?: No
[2018-01-22 14:20] VITALS: BP 167/81
== END | disposition home or self-care (01) ==
LOC: PNWHC3 13:23
PROVIDERS: ATTEND Specialist
DX: G89.29 Other chronic pain (principal); M54.5 Low back pain; M51.36 Other intervertebral disc degeneration, lumbar region; M47.816 Spondylosis without myelopathy or radiculopathy, lumbar region; M46.86 Other specified inflammatory spondylopathies, lumbar region; Z98.1 Arthrodesis status; Z98.890 Other specified postprocedural states; Z79.891 Long term (current) use of opiate analgesic; Z79.899 Other long term (current) drug therapy; Z87.891 Personal history of nicotine dependence
CPT/HCPCS: 99211

== ENCOUNTER → 2018-03-10 | Outpatient (CLI) | payer MEDICARE, BC ==
[2018-03-10 11:54] VITALS: BP 150/108; PULSE 84; RESP 18
--- NOTE | 2018-03-10 12:42 | P.PN ---
Subjective Progress Note Date: 03/10/18 Principal diagnosis: Lumbar post laminectomy Rosaura presents today for follow-up. She continues to low back pain most in the right side of her hip pain shooting into her right groin. She reports that her pain in the upper lumbar spine has significantly improved since having medial branch blocks. She was scheduled to have a radiofrequency ablation but her pain is been so well controlled that she did not have the ablation. He presents today with this right-sided SI joint pain which radiates from the back into the right groin. She finds the pain is worse with sitting standing from a seated position. She has tenderness to palpation over the right side. She denies any radicular symptoms going down her leg or into her foot. She denies any weakness on that side. She has had history of back surgery including L5-S1 fusion. Her neurosurgeon also agrees with the SI joint injection and is requesting that we try a joint injection on the right side. Objective - Vital Signs Vital signs: Vital Signs Temp Pulse 84 03/10/18 11:45 Resp 18 03/10/18 11:45 BP 150/108 03/10/18 11:45 Pulse Ox 96 03/10/18 11:45 Intake & Output 03/09/18 03/10/18 03/10/18 18:59 06:59 18:59 Weight 83.915 kg - Exam PHYSICAL EXAM: Constitutional: Awake and alert no distress Cardiovascular exam: Regular rate, no lower extremity edema, palpable pulses bilaterally Respiratory exam: No audible wheezing, no accessory muscle usage Abdominal exam: Soft nontender Muscular skeletal exam: - Cervical spine: Nontender to palpation bilaterally. Range of motion is not limited. Spurling is negative bilateral. Facet loading is negative bilaterally - Lumbar spine: Decreased lumbar lordosis. Surgical scars are well-healed. Nontender palpation bilateral. Patient has decreased range of motion in flexion and extension as well as lateral sidebending. Straight leg raise is negative. Facet loading is negative. Tender over the right SI joint . FILEMON positive on the right, Gaenselons positive on the right, SI Joint compression positive on the right. Neuro exam: Normal sensation bilateral upper and lower extremities. Deep tendon reflexes are 1+ + bilaterally. Zapata's is negative Psychiatric exam: Cooperative, good insight Assessment and Plan Assessment: #1 lumbar postlaminectomy syndrome #2 sacroiliitis #3 a lumbar spondylosis without myelopathy Plan: #1 continue current physical therapy and physical exercise routine. #2 sacroiliac joint injection right-hand side. #3 for upper lumbar pain recurs we may be able to do radiofrequency ablation at the levels previously injected
--- NOTE | 2018-03-10 16:09 | XR ---
Lumbar spine with flexion and extension views HISTORY: Pain, status post lumbar fusion 7 views of the lumbar spine submitted. Correlation to CT lumbar spine 01/10/2018 Patient shows fusion change at L4 L5 S1 posteriorly similar to prior exam on the right, markers are p resent disc spaces at L4-5 and L5-S1, disc spaces ankylosed. There is a spinal curvature present. Ant erolisthesis grade 1 L3-4. Loss of disc height at L3-4, L2-3 and L1-2 and associated spondylosis, vac uum phenomenon at L2-3. There is no evident spondylolysis, difficult to exclude less than 1 mm change in listhesis on standing, flexion, extension views. Sclerosis present in the posterior elements lumb ar spine compatible with facet arthropathy. Vascular calcifications are present. Surgical clips present in the right upper quadrant IMPRESSION: Degenerative disc disease, facet arthropathy, postop changes as described.
== END ==
LOC: PNWHC3 11:34
PROVIDERS: ATTEND Hospitalist
DX: M51.36 Other intervertebral disc degeneration, lumbar region (principal); M47.816 Spondylosis without myelopathy or radiculopathy, lumbar region; M46.96 Unspecified inflammatory spondylopathy, lumbar region; M96.1 Postlaminectomy syndrome, not elsewhere classified; M46.1 Sacroiliitis, not elsewhere classified
CPT/HCPCS: 72114; G0463; 99211

== ENCOUNTER 2018-03-20 06:10 | Day surgery (SDC) | payer MEDICARE, BC ==
[2018-03-18 15:43] VITALS: BMI 31.7
[~2018-03-20 06:10] MED LIST changes: -LACTATED RINGERS 1,000 ML IV SCH; +SODIUM CHLORIDE 0.9% 500 ML 500 ML IV SCH
[2018-03-20 06:49] VITALS: RESP 16; TEMP 98.6
[2018-03-20] MEDS ORDERED: LACTATED RINGERS 1,000 ML IV ONE (06:49)
--- NOTE | 2018-03-20 07:19 | P.PCN ---
Date of Procedure: 03/20/18 Procedure(s) Performed: Procedure= Right sacral iliac joints steroid injection under fluoroscopy guidance Preoperative diagnosis= 1-sacroiliitis 2-lumbar spondylosis with lumbar facet arthropathy Postoperative diagnosis=1-sacroiliitis 2-lumbar spondylosis with lumbar facet arthropathy Complication = none Condition= stable Anesthesia= moderate sedation with intravenous Versed 2 mg , and fentanyl 50 micrograms and local infiltration with lidocaine 1% 2 mL Indication for the procedure= patient complaining of low back pain , examination was positive for severe tenderness over the sacroiliac joints bilaterally and patient diagnosed with sacroiliitis, for this reason he/ she was good candidate for sacroiliac joint steroid injection. Description of the procedure= procedure risk and benefits discussed with the patient, including but not limited, risk of infection and bleeding, and ALLERGIC reaction to the medication and not complete pain relief and patient agreed with the preceding patient taken to the operating room, placed in prone position or standard monitors applied to the patient then after induction of anesthesia back prepped with chlorhexidine 3 times , Then under strict sterile technique, first I did the right sacroiliac joint the which was identified under fluoroscopy guidance been local infiltration of the skin and subcu interstitial with lidocaine 1% then 22-gauge [place]ke Needle advanced slowly under fluoroscopy and placed in the right sacroiliac joint needle placement confirmed with AP and oblique and lateral view and after appropriate needle placement confirmed and after negative aspiration, or heme , then Ropivacaine 0.5% 4 mL, and 40 mg of Kenalog mixed together and injected in the right sacroiliac joint after negative aspiration patient tolerated the procedure well without any complication.
[2018-03-20] MEDS ORDERED: IV FLUID CONTINUATION 1,000 ML IV ONE ×2 (07:27)
[2018-03-20 07:39] VITALS: BP 123/84; PULSE 73
--- NOTE | 2018-03-20 11:15 | FL ---
Fluoroscopy HISTORY: Pain 3 seconds fluoroscopy time supplied to the referring clinician. 1 intraoperative C-arm images docume nt the procedure. See dictated report from anesthesia.
== END 2018-03-20 07:57 | disposition home or self-care (01) ==
LOC: ORPAIN 06:10
PROVIDERS: ATTEND Specialist
DX: M46.1 Sacroiliitis, not elsewhere classified (principal); M47.816 Spondylosis without myelopathy or radiculopathy, lumbar region
CPT/HCPCS: J2250; J3301; J3010; G0260; 27096

== ENCOUNTER 2018-04-29 06:16 | Day surgery (SDC) | payer MEDICARE, BC ==
[2018-04-25 14:45] VITALS: BMI 31.9
[2018-04-29 06:58] VITALS: RESP 16; TEMP 97.1
[2018-04-29] MEDS ORDERED: LIDOCAINE 1% 20 ML VIAL (10MG/ML) FOR IV START INTRADERMA ONE (07:01)
[2018-04-29] MEDS ORDERED: LACTATED RINGERS 1,000 ML IV ONE (07:01)
--- NOTE | 2018-04-29 07:21 | P.PCN ---
Date of Procedure: 04/29/18 Procedure(s) Performed: Procedure= Right sacral iliac joints steroid injection under fluoroscopy guidance Preoperative diagnosis= 1-sacroiliitis 2-lumbar spondylosis with lumbar facet arthropathy Postoperative diagnosis=1-sacroiliitis 2-lumbar spondylosis with lumbar facet arthropathy Complication = none Condition= stable Anesthesia= moderate sedation with intravenous Versed 2 mg , and fentanyl 50 micrograms and local infiltration with lidocaine 1% 2 mL Indication for the procedure= patient complaining of low back pain , examination was positive for severe tenderness over the sacroiliac joints bilaterally and patient diagnosed with sacroiliitis, for this reason he/ she was good candidate for sacroiliac joint steroid injection. Description of the procedure= procedure risk and benefits discussed with the patient, including but not limited, risk of infection and bleeding, and ALLERGIC reaction to the medication and not complete pain relief and patient agreed with the preceding patient taken to the operating room, placed in prone position or standard monitors applied to the patient then after induction of anesthesia back prepped with chlorhexidine 3 times , Then under strict sterile technique, first I did the right sacroiliac joint the which was identified under fluoroscopy guidance been local infiltration of the skin and subcu interstitial with lidocaine 1% then 22-gauge Qu[place]ke Needle advanced slowly under fluoroscopy and placed in the right sacroiliac joint needle placement confirmed with AP and oblique and lateral view and after appropriate needle placement confirmed and after negative aspiration, or heme , then Ropivacaine 0.5% 4 mL, and 40 mg of Depo-Medrol mixed together and injected in the right sacroiliac joint after negative aspiration patient tolerated the procedure well without any complication.
[2018-04-29] MEDS ORDERED: IV FLUID CONTINUATION 1,000 ML IV ONE (07:32)
[2018-04-29 07:53] VITALS: BP 122/82; PULSE 72
--- NOTE | 2018-04-29 08:08 | FL ---
Fluoroscopy HISTORY: Pain 2 seconds fluoroscopy time supplied to the referring clinician. 1 intraoperative C-arm images docume nt the procedure. See dictated report from anesthesia.
== END 2018-04-29 08:12 | disposition home or self-care (01) ==
LOC: ORPAIN 06:16
PROVIDERS: ATTEND Specialist
DX: M46.1 Sacroiliitis, not elsewhere classified (principal); M47.816 Spondylosis without myelopathy or radiculopathy, lumbar region
CPT/HCPCS: J2250; J1030; J3010; G0260; 27096

== ENCOUNTER → 2018-05-26 | Outpatient (CLI) | payer MEDICARE, BC ==
[2018-05-26 12:42] VITALS: BP 131/66; PULSE 79; RESP 16
--- NOTE | 2018-05-26 13:05 | P.PN ---
Subjective Progress Note Date: 05/26/18 Rosaura presents for follow-up today. She continues clinic pain over the right SI joint. She reports over the weekend she had a fall were some ice. She reports that her pain over the SI joint gout worse for a little while. She was able to ice the area and she felt like her SI joint had popped out of place but is feeling better now. She reports that the SI joint injection with significantly helpful for her pain. She is inquiring about radiofrequency ablation on that side. I discussed with her the procedure in detail and her expectations. She reports she continues to exercise daily and is not limiting her range of motion. She tends to wear a SI joint belt at times but she does not want to be dependent on the belt Objective - Vital Signs Vital signs: Vital Signs Temp Pulse 79 05/26/18 12:34 Resp 16 05/26/18 12:34 BP 131/66 05/26/18 12:34 Pulse Ox Intake & Output 05/25/18 05/26/18 05/26/18 18:59 06:59 18:59 Weight 84.822 kg - Exam General: Awake and alert oriented 3 no distress Respiratory exam: No audible wheezing no accessory muscle usage Cardiovascular exam: regular rate, palpable bilateral pulses, no lower extremity edema Abdominal exam: No distention nontender to palpation Cervical spine: Normal alignment, Spurling's negative, facet loading negative Lumbar spine: Loss of lumbar lordosis, surgical scars are well-healed normal alignment, tender to palpation over bilateral paraspinal muscles, facet loading is positive bilaterally. Straight leg raise is negative. Sacroiliac joints: Right SI joint tender to palpation, Chato's test is positive , Gaenslen test is positive. Neuro exam: Normal sensation in bilateral upper extremities, deep tendon reflexes are 2+ bilateral upper extremities. Normal sensation in bilateral lower extremities. Deep tendon reflexes are 2+ in lower extremities Psych exam: Cooperative, appropriate mood Assessment and Plan Assessment: Sacroiliitis Plan: Plan is to move forward with a right-sided radiofrequency ablation under fluoroscopy. The patient would like to have sedation. I discussed with her the risks, benefits, and alternatives of the procedure.
== END | disposition home or self-care (01) ==
LOC: PNWHC3 12:17
PROVIDERS: ATTEND Hospitalist
DX: M46.1 Sacroiliitis, not elsewhere classified (principal); M10.9 Gout, unspecified; M40.56 Lordosis, unspecified, lumbar region
CPT/HCPCS: 99211

== ENCOUNTER 2018-06-04 07:22 | Day surgery (SDC) | payer MEDICARE, BC ==
[2018-06-02 14:20] VITALS: BMI 31.9
[2018-06-04 07:37] VITALS: RESP 16; TEMP 97.4
[2018-06-04] MEDS ORDERED: LACTATED RINGERS 1,000 ML IV ONE (07:50)
[2018-06-04 07:54] LABS: Glucose,Whole Blood 115 mg/dL (75-99)
[2018-06-04] MEDS ORDERED: IV FLUID CONTINUATION 1,000 ML IV ONE (09:08)
--- NOTE | 2018-06-04 09:16 | P.PCN ---
Date of Procedure: 06/04/18 Procedure(s) Performed: PREOPERATIVE DIAGNOSIS: 1-Lumbosacral spondylosis with facet arthropathy without myelopathy. 2- Right sacroiliit. 3-history of lumbar laminectomy and fusion surgery post operative Diagnosis: . 1-Lumbosacral spondylosis with facet arthropathy without myelopathy. 2- Right sacroiliit. 3-history of lumbar laminectomy and fusion surgery PROCEDURES: 1- Right multi-site radiofrequency thermocoagulation/ablation of the S1, S2, and S3 lateral branchs. The procedure was performed using fluoroscopic guidance during needle placement to assure proper position and maximize safety . ANESTHESia= moderate sedation with intravenous versed 2mg, and Fentanyle 100 mcg EBL: NONE INDICATION/MEDICAL NECESSITY: History of low back pain secondary to right sacroiliitis and lumbosacral arthropathy unresponsive to more conservative treatments. The patient reported more than 50% relief of pain symptoms following 2 previous diagnostic blocks. PROCEDURE DESCRIPTION: The patient was seen and identified in the preoperative area. Risks, benefits, complications, and alternatives were discussed with the patient. The patient agreed to proceed with the procedure and signed the consent. Vital signs were checked before and after the procedure and they remained stable. Patient ambulated to the procedure room and time out was completed. The patient was placed in the prone position on the procedure table and a pillow was placed under the abdomen to reduce lumbar lordosis. The lumbosacral area was prepped and draped in the usual sterile fashion. Critical pause was taken. L5 Dorsal Ramus RF: not done ,because patient had hardware blocking the location of the L5 dorsal ramus S1, S3, and S3 Lateral Branch RF: The the Right S1, S2, and S3 foramina were not visible with fluoroscopy. Because of the hardware, and patient had significant amount of gas in the pelvic area, Under fluoroscopic guidance, three 10-cm 20 -gauge radiofrequency cannula with a 10-mm active tip was inserted at the median age of the right sacroiliac joint starting from the inferior border of the joints going superiorly total of 6 needle was placed, then after needle placement confirmed with the AP and lateral view, the sensory testing of the S1 lateral branch was performed at 50 Hz and 0 to 1 volt at the three levels with production of concordant pain starting at 0.5 volt. Motor stimulation was done at 2.5 Hz. No radicular symptoms or paresthesias were produced during the testing. Subsequently, the S1 , S2 , S3 lateral branch was subjected to a radiofrequency ablation at a mode of 90 seconds at 80 degrees Celsius at the 3 levels after negative motor and sensory testing and after injecting 0.5 ml of preservative free ropivacaine 0.5 %. Then before the needles taken out ropivacaine 0.5% 6 ml mixed with 40 mg of Depo-Medrol, and 1 mL of the mixture injected at each level after negative aspiration The needle was withdrawn intact after each injection. COMPLICATIONS: The patient tolerated the procedure well without any acute complications. DISPOSTION/PLAN: The patient ambulated to the recovery area after the procedure in a stable condition for observation. Patient was reexamined prior to discharge. Patient was observed for 30 minutes in the recovery area and was discharged home, accompanied by an adult, after meeting discharged criteria. Discharge instructions were give to the patient by the staff. Patient was specifically instructed not to drive today and to rest for the rest of the day. The patient will schedule a follow up visit in the clinic in weeks or earlier if needed.
[2018-06-04 09:26] VITALS: BP 134/82; PULSE 70
--- NOTE | 2018-06-04 10:12 | FL ---
Fluoroscopy HISTORY: Pain 12 seconds fluoroscopy time supplied to the referring clinician. 4 intraoperative C-arm images docum ent the procedure. See dictated report from anesthesia.
== END 2018-06-04 09:41 | disposition home or self-care (01) ==
LOC: ORPAIN 07:22
PROVIDERS: ATTEND Specialist
DX: M46.1 Sacroiliitis, not elsewhere classified (principal); M47.817 Spondylosis without myelopathy or radiculopathy, lumbosacral region; J45.909 Unspecified asthma, uncomplicated; G47.33 Obstructive sleep apnea (adult) (pediatric); E03.9 Hypothyroidism, unspecified; Z88.6 Allergy status to analgesic agent; Z98.1 Arthrodesis status; Z91.048 Other nonmedicinal substance allergy status
CPT/HCPCS: 64640 ×3; J2250; J1030; J3010; 64635; 99152; 99153

== ENCOUNTER → 2018-07-01 | Outpatient (CLI) | payer MEDICARE, BC ==
[2018-07-01 13:23] VITALS: BP 142/85; PULSE 86; RESP 18
--- NOTE | 2018-07-01 13:33 | P.PN ---
Progress Note - Text Progress Note Date: 07/01/18 This is a follow-up visit for this 63 years old female, with a chronic history of severe low back pain, she is diagnosed with lumbar spondylosis, failed back surgery syndrome and lumbar area, and right sacroiliitis, recently we have done radiofrequency ablation of the right sacroiliac joint, and that helped her low back pain significantly, she used [place] 10/325 when necessary, and since we've done from the radiofrequency of the right sacroiliac joint, she used the [place] only a few times, she denies any side effect of the medication, she denies any excessive drowsiness or sleepiness, she denies any fever or night sweats, she denies any change in the bowel movement or urination. Physical Examinations : -Constitutiona : Cooperative , not in acute distress . -HEENT : nech ; supple , no Lymphadenopathy , normal thyroid size . eyes : no ptosis , no icterus, no photophobia . - musculoskeltal : Lumber spine moter stegnth lower extremities ,thigh and legs 5/5 Right side , 5/5 Left side Assessment and plan= chronic low back pain secondary to lumbar degenerative disc disease , lumbar spondylosis with lumbar facet arthropathy . Right sacroiliitis Pain improved significantly after the radiofrequency ablation of the right sacroiliac joint. Patient will follow up with the pain clinic when necessary. - PQRS measures = - Patient's medications are documented in the chart. -Tobacco use is negative and counseling.Given. -Patient's has received pneumococcal vaccine. -Advanced care planning discussed, patient not eligible. -Opiate contract not signed. -Pain over patient will follow up when necessary -Patient's blood pressure measured [142/85 ] , and documented in the record ,and patient will follow up with the primary care. -Patient's weight was measured and body mass index [ 31.6 ] above the,within the normal limits and counseling was done. and patient instructed to follow-up with the primary care physician. -Patient was not identified as an unhealthy alcohol user
== END ==
LOC: PNWHC3 13:01
PROVIDERS: ATTEND Specialist
DX: G89.29 Other chronic pain (principal); M51.36 Other intervertebral disc degeneration, lumbar region; M47.816 Spondylosis without myelopathy or radiculopathy, lumbar region; M46.96 Unspecified inflammatory spondylopathy, lumbar region; M46.1 Sacroiliitis, not elsewhere classified
CPT/HCPCS: 99211

== ENCOUNTER → 2018-08-07 | Outpatient (CLI) | payer MEDICARE, BC ==
--- NOTE | 2018-08-07 17:01 | PN ---
PROGRESS NOTE A 63-year-old lady has been followed in the [facility] for treatment of obstructive sleep apnea-hypopnea syndrome. The patient successfully continuing to use her CPAP equipment every night for the whole night without significant problems related to mask fitting, pressure or humidification. No snoring with the machine. [place] Sleepiness Scale today is 4, which is perfect. I checked the patient's CPAP unit, CPAP pressure of 13 cm of water. Usage is 100% of nights more than 4 hours. Average usage is 7.8 hours. Leak 23 L/minute which is borderline. Apnea-hypopnea index is 1.1, which is totally normal. MEDICATIONS: Claritin, fluticasone, fenofibrate, Lortab, Xanax, Flexeril, . PHYSICAL EXAM: Patient in no distress. BP 136/87, HR 81, RR 18, height 5 feet 4 inches, weight 187.6 pounds, temperature 98.5, oxygen saturation from 96%. Oropharynx showed extremely low position of soft palate. NECK: Supple, no JVD. Thyroid is not palpable. LUNGS Clear to percussion and to auscultation. Good air exchange. No wheezing or rhonchi. HEART S1, S2 regular. No murmurs, gallops, or rubs. ABDOMEN Soft and nontender. Bowel sounds are present. No organomegaly appreciated. EXTREMITIES No clubbing or cyanosis. [employer] Awake, alert, and oriented X3. Cranial nerves 2 to 7 intact. There is no fasciculation or atrophy. noted. No focal deficits observed. IMPRESSION: 1. Obstructive sleep apnea-hypopnea syndrome, on full control with CPAP. Patient demonstrated 100% compliance with treatment benefitting from treatment. 2. Obesity, the patient with the same weight as 1 year ago. 3. History of migraines. 4. History of depression. 5. Seasonal allergies. 6. Status post surgical treatment of sinus problems. 7. History of peptic ulcer disease. 8. History of chronic back pain. PLAN: 1. Patient will continue to use her CPAP equipment every night for the whole night. 2. Watching and losing weight. 3. Sleep hygiene with regular time in bed for at least 8 hours. 4. No driving if feeling sleepiness. 5. He will need all necessary prescriptions for CPAP supplies including mask, tube, filters. Thank you very much for allowing me to participate in management of your patient. Sincerely, Brandon Stefadu, MD, PhD, FAASM Diplomat of [place] [employer] [place] [employer] [facility] [place] MMBALJEET / HARSH: [id number] /
== END ==
LOC: SLEEP 13:20
PROVIDERS: ATTEND Internal Medicine
DX: G47.33 Obstructive sleep apnea (adult) (pediatric) (principal); E66.9 Obesity, unspecified; G43.909 Migraine, unspecified, not intractable, without status migrainosus; F32.9 Major depressive disorder, single episode, unspecified; J30.2 Other seasonal allergic rhinitis; G89.29 Other chronic pain; M54.9 Dorsalgia, unspecified; Z99.89 Dependence on other enabling machines and devices; Z87.11 Personal history of peptic ulcer disease; Z79.899 Other long term (current) drug therapy

== ENCOUNTER → 2018-12-22 | Outpatient (CLI) | payer MEDICARE, BC ==
[2018-12-22 13:45] VITALS: BP 152/77; PULSE 81; RESP 16
--- NOTE | 2018-12-22 14:12 | P.PN ---
Subjective Progress Note Date: 12/22/18 This is a follow-up visit for this 63 years old female, with a chronic history of severe low back pain, she is diagnosed with lumbar spondylosis, failed back surgery syndrome and lumbar area, and right sacroiliitis, more 6 months ago we have done radiofrequency ablation of the right sacroiliac joint, and that helped her low back pain significantly, she used [place] 10/325 when necessary, patient gets excellent pain relief after the radiofrequency, she used the [place] only a few times, she denies any side effect of the medication, she denies any excessive drowsiness or sleepiness, she denies any fever or night sweats, she denies any change in the bowel movement or urination. Objective - Vital Signs Vital signs: Vital Signs Temp Pulse 81 12/22/18 13:41 Resp 16 12/22/18 13:41 BP 152/77 12/22/18 13:41 Pulse Ox 98 12/22/18 13:41 Intake & Output 12/21/18 12/22/18 12/22/18 18:59 06:59 18:59 Weight 85.275 kg - Exam Physical Examinations : -Constitutiona : Cooperative , not in acute distress . -HEENT : nech : supple , no Lymphadenopathy , normal thyroid size . eyes : no ptosis , no icterus, no photophobia . - neurologic : Cranial nerve II to XII intact , no focal neurological deffecit . -psychatric : alert , oriented X 3 , appropriate affect , intact judgment and insight . -Lymphatic : no Lymphadenopathy . - musculoskeltal : Lumber spine moter stegnth lower extremities ,thigh and legs 5/5 Right side , 5/5 Left side deep tendon reflexes : normal Knee Jerk , normal ankle Jerk positive lumber facet Loading Test Range of motion of the lumbar spine Flexion 30 degrees, extension 10 degrees strait leg raising test , positive at degree Fabere test positive RT and positive LT . Sever tenderness over the Sacroiliac joint on the Right side Gaenslen test positive on the right side Seated flexion test positive on the right side Assessment and Plan Plan: assessment and plan=1-right sacroiliitis. 2-lumbar spondylosis with lumbar facet arthropathy. 3-history of laminectomy and fusion surgery Patient will be good candidate to have a repeat RFA of the right sacroiliac joint, she got excellent pain relief for more than 6 months after we did the RFA, she'll continue to use [place] 10/325 when necessary and she is getting prescription refills from her primary care. - PQRS measures = - Patient's medications are documented in the chart. -Tobacco use is negative and counseling.Given. -Patient's has received pneumococcal vaccine. -Advanced care planning discussed, patient not eligible. -Opiate contract not signed.(getting prescriptions refilled from her primary care ) -Pain positive and follow-up visit/procedure is scheduled. -Patient's blood pressure measured [152/77 ] , and documented in the record ,and patient will follow up with the primary care. -Patient's weight was measured and body mass index [ 32.3 ] above the normal limits and counseling was done. and patient instructed to follow-up with the primary care physician. -Patient was not identified as an unhealthy alcohol user Time with Patient: Less than 30
== END | disposition home or self-care (01) ==
LOC: PNWHC3 13:21
PROVIDERS: ATTEND Specialist
DX: M47.816 Spondylosis without myelopathy or radiculopathy, lumbar region (principal); M46.96 Unspecified inflammatory spondylopathy, lumbar region; M46.1 Sacroiliitis, not elsewhere classified; Z98.1 Arthrodesis status; Z79.891 Long term (current) use of opiate analgesic; Z98.890 Other specified postprocedural states
CPT/HCPCS: 99211

== ENCOUNTER → 2018-12-29 | Outpatient (CLI) | payer MEDICARE, BC ==
--- NOTE | 2018-12-29 17:39 | CTL ---
EXAMINATION TYPE: CT Low Dose Lung DATE OF EXAM ORDERED: 12/29/2018 HISTORY: Personal history tobacco use. Lung cancer screening CT DLP: [address] CTDI: 3.8 mGy Automated exposure control for dose reduction was used. SCREENING VISIT: Initial COMPARISON: None TECHNIQUE: Low dose computed tomography scan was performed through the chest at 1 mm thick sections a nd reconstructed images in the coronal plane at [address] DIAGNOSTIC QUALITY: Satisfactory FINDINGS: LUNG NODULES: None. LUNGS: COPD: Severity: None Fibrosis: Severity: None Lymph nodes: None Other findings: None RIGHT PLEURAL SPACE: Effusion: None Calcification: None Thickening: None Pneumothorax: None LEFT PLEURAL SPACE: Effusion: None Calcification: None Thickening: None Pneumothorax: None HEART: Heart Size: Normal Coronary calcification: None Pericardial effusion: None OTHER FINDINGS: Upper abdomen: Normal Bony thorax: Normal Supraclavicular region: Normal Other: Ascending thoracic aorta at the level the main pulmonary artery measures 3.1 cm. The main pul monary artery at the bifurcation measures 2.4 cm. IMPRESSION: Normal low-dose CT thorax screening FOLLOW UP CT CHEST RECOMMENDATION: Follow-up one year screening low dose CT per protocol CT LUNG RAD: 1
== END | disposition home or self-care (01) ==
LOC: RADCTMAIN 14:17
PROVIDERS: ATTEND Family Medicine
DX: Z13.83 Encounter for screening for respiratory disorder NEC (principal); Z87.891 Personal history of nicotine dependence

== ENCOUNTER 2019-01-26 06:56 | Day surgery (SDC) | payer MEDICARE, BC ==
[2019-01-22 12:29] VITALS: BMI 32.1
[2019-01-26] MEDS ORDERED: LACTATED RINGERS 1,000 ML IV ONE (07:29)
[2019-01-26] MEDS ORDERED: LIDOCAINE 1% 20 ML VIAL (10MG/ML) FOR IV START INTRADERMA ONE (07:29)
[2019-01-26 07:32] VITALS: TEMP 97.3
[2019-01-26] MEDS ORDERED: IV FLUID CONTINUATION 1,000 ML IV ONE (08:38)
[2019-01-26 08:56] VITALS: BP 124/79; PULSE 77; RESP 17
--- NOTE | 2019-01-26 09:10 | P.PCN ---
Date of Procedure: 01/26/19 Description of Procedure: Date of Procedure: 01/26/2019 Procedure(s) Performed: PREOPERATIVE DIAGNOSIS: 1-Lumbosacral spondylosis with facet arthropathy without myelopathy. 2- Right sacroiliitis. 3-history of lumbar laminectomy and fusion surgery post operative Diagnosis: . 1-Lumbosacral spondylosis with facet arthropathy without myelopathy. 2- Right sacroiliitis. 3-history of lumbar laminectomy and fusion surgery PROCEDURES: 1- Right multi-site radiofrequency thermocoagulation/ablation of the S1, S2, and S3 lateral branchs. The procedure was performed using fluoroscopic guidance during needle placement to assure proper position and maximize safety . ANESTHESIA: moderate sedation with intravenous versed 2mg, and Fentanyle 100 mcg EBL: NONE INDICATION/MEDICAL NECESSITY: History of low back pain secondary to right sacroiliitis and lumbosacral arthropathy unresponsive to more conservative treatments. head greater than 70% relief with previous radio frequency ablation. PROCEDURE DESCRIPTION: The patient was seen and identified in the preoperative area. Risks, benefits, complications, and alternatives were discussed with the patient. The patient agreed to proceed with the procedure and signed the consent. Vital signs were checked before and after the procedure and they remained stable. Patient ambulated to the procedure room and time out was completed. The patient was placed in the prone position on the procedure table and a pillow was placed under the abdomen to reduce lumbar lordosis. The lumbosacral area was prepped and draped in the usual sterile fashion. Critical pause was taken. S1, S3, and S3 Lateral Branch RF: The the Right S1, S2, and S3 foramina were not visible with fluoroscopy. Because of the hardware, and patient had significant amount of gas in the pelvic area, Under fluoroscopic guidance, three 10-cm 20 -gauge radiofrequency cannula with a 10-mm active tip was inserted at the median age of the right sacroiliac joint starting from the inferior border of the joints going superiorly total of 6 needle was placed, then after needle placement confirmed with the AP and lateral view, the sensory testing of the S1 lateral branch was performed at 50 Hz and 0 to 1 volt at the three levels with production of concordant pain starting at 0.5 volt. Motor stimulation was done at 2.5 Hz. No radicular symptoms or paresthesias were produced during the testing. Subsequently, the S1 , S2 , S3 lateral branch was subjected to a radiofrequency ablation at a mode of 90 seconds at 80 degrees Celsius at the 3 levels after negative motor and sensory testing and after injecting 0.5 ml of preservative free ropivacaine 0.5 %. Then before the needles taken out ropivacaine 0.5% 6 ml mixed with 40 mg of Kenalog, and 1 mL of the mixture injected at each level after negative aspiration The needle was withdrawn intact after each injection. COMPLICATIONS: The patient tolerated the procedure well without any acute complications. DISPOSTION/PLAN: The patient ambulated to the recovery area after the procedure in a stable condition for observation. Patient was reexamined prior to discharge. Patient was observed for 30 minutes in the recovery area and was discharged home, accompanied by an adult, after meeting discharged criteria. Discharge instructions were give to the patient by the staff. Patient was specifically instructed not to drive today and to rest for the rest of the day. The patient will schedule a follow up visit in the clinic in 4 weeks for post procedure follow-up.
--- NOTE | 2019-01-26 16:19 | FL ---
Fluoroscopy HISTORY: Pain 24 seconds fluoroscopy time supplied to the referring clinician. 5 intraoperative C-arm images docum ent the procedure. See dictated report from anesthesia.
== END 2019-01-26 09:10 | disposition home or self-care (01) ==
LOC: ORPAIN 06:56
PROVIDERS: ATTEND Anesthesiology
DX: M47.817 Spondylosis without myelopathy or radiculopathy, lumbosacral region (principal); M46.1 Sacroiliitis, not elsewhere classified; Z98.1 Arthrodesis status; Z88.8 Allergy status to other drugs, medicaments and biological substances; Z91.048 Other nonmedicinal substance allergy status
CPT/HCPCS: 64640; 64635; J2250; J3301; J2001; J3010; 99152; 99153

== ENCOUNTER → 2019-02-23 | Outpatient (CLI) | payer MEDICARE, BC ==
[2019-02-23 11:50] VITALS: BP 128/88; PULSE 97; RESP 16
--- NOTE | 2019-02-23 12:13 | P.PAINPG ---
Subjective Progress Note Date: 02/23/19 This is a 64-year-old female who presents for follow-up after right-sided sacral RFA. He has a past medical history of chronic low back pain and SI joint dysfunction, she history of lumbar surgery. After her SI RFA, she had excellent relief, she in fact denies any pain in the right SI area. She continues to be prescribed [place] 10/325 and denies any side effects from his medication. She has no new complaints, she does come to clinic as a follow-up to her procedure. Objective - Vital Signs Vital signs: Vital Signs Temp Pulse 97 02/23/19 11:47 Resp 16 02/23/19 11:47 BP 128/88 02/23/19 11:47 Pulse Ox 97 02/23/19 11:47 - Exam Vital Signs: Reviewed in EMR GENERAL: Well appearing, in no acute distress, PSYCH: Mood and affect is appropriate. Awake, alert, and oriented SKIN: Skin color, texture, turgor normal, no rashes or lesions HEENT: Normocephalic, atraumatic. EOM intact CV: No pedal edema RESP: Respirations are unlabored, no audible wheezing GI: Abdomen non-distended MUSCULOSKELETAL: Bilateral upper and lower extremity strength is normal and symmetric. No atrophy or tone abnormalities are noted. Buttocks: Tenderness to right PSIS, Chato's test on the right was positive Extremities: Peripheral joint ROM is full and pain free without obvious instability or laxity in all four extremities. No edema or skin discolorations noted. Gait: Gait is anantalgic NEUR: No loss of sensation is noted. Cranial nerves are grossly intact. Assessment and Plan Assessment: Assessment: 1. Right SI joint dysfunction 2. Lumbar spondylosis 3. Lumbar surgery 4. Chronic opiate use Plan: 1. Explanation: She has good insight into her disease process, she does realize that her pain may return. 2. Opioid agreement: None 3. Counseling: Patient should continue to stay active 4. Procedures: She will: when she wants a repeat right SI RFA 5. Consultations: None 6. Investigations: None 7. Medications: Encouraged patient to have discussions with primary care physician 8. Disposition: She will call in for her RFA , PQRS Measure Charge Sheet Measure #226: Tobacco Use: Screen & Cessation Intervention: Pt not a tobacco user Measure #111: Pneumonia Vaccination: Pneumococcal vaccine administered or previously received Measure #47: Advance Care Plan: Advance care planning discussed & documented, pt chose/unable to give Measure #131: Pain Assessment & Follow-up: Pain positive & plan documented, Follow-up scheduled PQRS Narrative: Smoking Status Former smoker Blood Pressure 128/88 Pain Intensity [Lower Back] 0 Scale Used Numeric (1 - 10) Hx Alcohol Use (MH) Yes: OCCASIONAL Home Medications: Ambulatory Orders ALPRAZolam [Xanax] 0.5 mg PO DAILY PRN 07/29/17 Albuterol Inhaler [Ventolin Hfa Inhaler] 2 puff INHALATION QID PRN 07/29/17 Cyclobenzaprine [Flexeril] 10 mg PO HS PRN 07/29/17 Ezetimibe 10 mg PO DAILY 07/29/17 Fluticasone Nasal [place] [Flonase Nasal [place]] 1 spray NASAL MOTUWETH 07/29/17 Hydrocodone/Acetaminophen [[place] 10-325] 1 tab PO TID PRN 07/29/17 Loratadine [Claritin] 10 mg PO DAILY PRN 07/29/17 Mometasone/Formoterol [Dulera 100 Mcg/5 Mcg Inhaler] 2 puff INHALATION QID PRN 07/29/17 Nystatin [Nystop] 60 gm TOPICAL DAILY PRN 07/29/17 Omeprazole [PriLOSEC] 20 mg PO TUFR 07/29/17 Phenylephrine HCl [Sudafed PE] 10 mg PO HS PRN 07/29/17 Saliva Stimulant Agents Comb.3 [Biotene Moisturizing Mouth] 1 spray PO HS PRN 07/29/17 Alendronate Sodium [Fosamax] 40 mg PO MO 09/24/17 Cholecalciferol [Vitamin D3] 2,000 unit PO DAILY 10/10/17 Methocarbamol [Robaxin] 1,000 mg PO HS PRN 12/20/17 Zolpidem Tartrate [Ambien] 10 mg PO HS PRN 01/06/18 Magnesium Oxide [Mag-Ox] 250 mg PO DAILY 01/22/19 Potassium Gluconate 99 mg PO DAILY 01/22/19 Controlled Substance Measures - Controlled Substance Measures Is patient prescribed a controlled substance at discharge?: No
== END | disposition home or self-care (01) ==
LOC: PNWHC3 11:41
PROVIDERS: ATTEND Student in an Organized Health Care Education/Training Program
DX: M47.816 Spondylosis without myelopathy or radiculopathy, lumbar region (principal); M53.3 Sacrococcygeal disorders, not elsewhere classified; Z98.890 Other specified postprocedural states; Z87.891 Personal history of nicotine dependence; Z79.51 Long term (current) use of inhaled steroids; Z79.891 Long term (current) use of opiate analgesic; Z79.899 Other long term (current) drug therapy
CPT/HCPCS: 99211

== ENCOUNTER 2019-05-05 16:54 | Emergency (ER) | payer MEDICARE, BC ==
[2019-05-05 17:50] VITALS: BP 142/72; PULSE 82; RESP 18; TEMP 97.8
[2019-05-05] MEDS ORDERED: GELATIN SPONGE,ABSORB (SMALL) 1 EACH SPONGE TOPICAL STA (18:17)
--- NOTE | 2019-05-05 18:28 | ED ---
Wound/Laceration HPI - General Chief Complaint: Wound/Laceration Stated Complaint: finger lac Time Seen by Provider: 05/05/19 18:01 Source: patient Mode of arrival: ambulatory Limitations: no limitations - History of Present Illness Initial Comments: Patient is 64-year-old female presenting to emergency Department with chief complaint of laceration. Patient states she was using a janelle while in the kitchen when she calls a laceration to the distal end of her left second digit. Patient reports continues bleeding at the site of injury. She states that she went to an urgent care who advised her if the bleeding does not resolve, she should go to the ED. Patient reports she went to multiple causes without any resolution of symptoms. Patient denies any numbness or tingling. She does report a throbbing pain at the site of injury. States her tetanus status is up-to-date. Is full range of motion in the digit. Denies any trauma to the nail. - Related Data Home Medications Medication Instructions Recorded Confirmed ALPRAZolam [Xanax] 0.5 mg PO DAILY PRN 07/29/17 02/17/19 Albuterol Inhaler [Ventolin Hfa 2 puff INHALATION QID PRN 07/29/17 02/17/19 Inhaler] Cyclobenzaprine [Flexeril] 10 mg PO HS PRN 07/29/17 02/17/19 Ezetimibe 10 mg PO DAILY 07/29/17 02/17/19 Fluticasone Nasal [place] [Flonase 1 spray NASAL MOTUWETH 07/29/17 02/17/19 Nasal [place]] Hydrocodone/Acetaminophen [[place] 1 tab PO TID PRN 07/29/17 02/17/19 10-325] Loratadine [Claritin] 10 mg PO DAILY PRN 07/29/17 02/17/19 Mometasone/Formoterol [Dulera 100 2 puff INHALATION QID PRN 07/29/17 02/17/19 Mcg/5 Mcg Inhaler] Nystatin [Nystop] 60 gm TOPICAL DAILY PRN 07/29/17 02/17/19 Omeprazole [PriLOSEC] 20 mg PO TUFR 07/29/17 02/17/19 Phenylephrine HCl [Sudafed PE] 10 mg PO HS PRN 07/29/17 02/17/19 Saliva Stimulant Agents Comb.3 1 spray PO HS PRN 07/29/17 02/17/19 [Biotene Moisturizing Mouth] Alendronate Sodium [Fosamax] 40 mg PO MO 09/24/17 02/17/19 Cholecalciferol [Vitamin D3] 2,000 unit PO DAILY 10/10/17 02/17/19 Methocarbamol [Robaxin] 1,000 mg PO HS PRN 12/20/17 02/17/19 Zolpidem Tartrate [Ambien] 10 mg PO HS PRN 01/06/18 02/17/19 Magnesium Oxide [Mag-Ox] 250 mg PO DAILY 01/22/19 02/17/19 Potassium Gluconate 99 mg PO DAILY 01/22/19 02/17/19 Allergies Allergy/AdvReac Type Severity Reaction Status Date / Time adhesive tape AdvReac Intermediate SEVERE Verified 02/17/19 13:30 IRRITATION ibuprofen [From Motrin] AdvReac Intermediate SEVERE Verified 02/17/19 13:30 UPSET STOMACH Review of Systems ROS Statement: Those systems with pertinent positive or pertinent negative responses have been documented in the HPI. ROS Other: All systems not noted in ROS Statement are negative. Past Medical History Past Medical History: Asthma, GERD/Reflux, Hyperlipidemia, Musculoskeletal Disorder, Osteoarthritis (OA), Sleep Apnea/CPAP/BIPAP, Thyroid Disorder Additional Past Medical History / Comment(s): CHRONIC BACK PAIN; MILD NEUROPATHY; OSTEOPOROSIS; CASANOVA'S NEUROMA; occ IBS, degenerative discs, spinal stenosis, past diabetes(oral rx) was resolved after nodule removed from thryoid. Dry Eyes.HYPERCALCEMIA History of Any Multi-Drug Resistant Organisms: None Reported Past Surgical History: Back Surgery, Cholecystectomy, Hysterectomy, Orthopedic Surgery Additional Past Surgical History / Comment(s): CERVICAL FUSION C6,C7,T1., LUMBAR FUSION WITH METAL PLATE L4,L5,S1, ANTERIOR INTERBODY LUMBAR LAMINECTOMY. CRUSHING RIGHT HAND INJURY RECONSTRUCTION. SINUS SURGERY. PARTIAL THYROIDECTOMY AND PARTIAL PARATHYROIDECTOMY. PAIN CLINIC PROCEDURE. Past Anesthesia/Blood Transfusion Reactions: Postoperative Nausea & Vomiting (PONV) Past Psychological History: Anxiety, Depression Smoking Status: Former smoker - Past Family History Mother Family Medical History: No Reported History Sister(s) Family Medical History: Cancer Additional Family Medical History / Comment(s): 2 SISTERS- LUNG CANCER General Exam Limitations: no limitations General appearance: alert, in no apparent distress Head exam: Present: atraumatic, normocephalic, normal inspection Eye exam: Present: normal appearance, EOMI Pupils: Present: normal accommodation ENT exam: Present: normal exam, mucous membranes moist Neck exam: Present: normal inspection, full ROM Respiratory exam: Present: normal lung sounds bilaterally Cardiovascular Exam: Present: regular rate, normal rhythm, normal heart sounds Extremities exam: Present: full ROM, tenderness (Mild tenderness at the site of injury.), normal capillary refill, other (+2 ulnar and radial pulses bilaterally. No injury to the nail or nailbed.). Absent: normal inspection (Superficial skin avulsion on the posterior aspect of the left distal second digit. No active bleeding.) Back exam: Present: normal inspection, full ROM Neurological exam: Present: alert, oriented X3 Psychiatric exam: Present: normal affect, normal mood Skin exam: Present: warm, dry, intact, normal color Course Vital Signs 05/05/19 17:47 Temperature 97.8 F Pulse Rate 82 Respiratory 18 Rate Blood Pressure 142/72 O2 Sat by Pulse 98 Oximetry Medical Decision Making - Medical Decision Making Patient is 64-year-old female presenting to emergency Department with a chief complaint of a laceration. On exam patient does have a superficial skin avulsion to the posterior aspect of the left distal second digit. Very minimal bleeding at time of evaluation. Patient has full range of motion and is neurovascularly intact. Gelfoam applied. Patient given instructions about Gelfoam. Tetanus status is up-to-date. Patient is not on blood thinners. Strict return parameters were thoroughly discussed the patient was understanding and agreeable. Patient advised to follow-up with primary care. Case discussed with physician. Disposition Clinical Impression: Avulsion of skin of finger Disposition: HOME SELF-CARE Condition: Stable Instructions (If sedation given, give patient instructions): Skin Avulsion (ED) Additional Instructions: Follow proper wound care instructions. Follow-up with primary care. Return to emergency department if symptoms worsen. Is patient prescribed a controlled substance at d/c from ED?: No Referrals: Lenard Mchugh MD [Primary Care Provider] - 1-2 days Time of Disposition: 18:28
== END 2019-05-05 18:57 | disposition home or self-care (01) ==
LOC: EC 16:54
DX: S61.201A Unspecified open wound of left index finger without damage to nail, initial encounter (principal); J45.909 Unspecified asthma, uncomplicated; K21.9 Gastro-esophageal reflux disease without esophagitis; E78.5 Hyperlipidemia, unspecified; M19.90 Unspecified osteoarthritis, unspecified site; G47.30 Sleep apnea, unspecified; M81.0 Age-related osteoporosis without current pathological fracture; E07.9 Disorder of thyroid, unspecified; F41.9 Anxiety disorder, unspecified; F32.9 Major depressive disorder, single episode, unspecified; Z79.51 Long term (current) use of inhaled steroids; Z79.899 Other long term (current) drug therapy; Z91.048 Other nonmedicinal substance allergy status; Z88.6 Allergy status to analgesic agent; Z98.1 Arthrodesis status; Z90.89 Acquired absence of other organs; Z87.891 Personal history of nicotine dependence; Z99.89 Dependence on other enabling machines and devices; W26.8XXA Contact with other sharp object(s), not elsewhere classified, initial encounter; Y93.89 Activity, other specified; Y92.000 Kitchen of unspecified non-institutional (private) residence as the place of occurrence of the external cause
CPT/HCPCS: 99282

== ENCOUNTER → 2019-06-05 | Outpatient (CLI) | payer MEDICARE, BC ==
--- NOTE | 2019-07-03 11:31 | ECHOF ---
Referral Reason:G45.9 Transient cerebral ischemic attack, unspecif MEASUREMENTS -------- HEIGHT: 162.6 cm WEIGHT: 82.6 kg BP: IVSd: 1.2 cm (0.6 - 1.1) LVIDd: 2.3 cm (3.9 - 5.3) LVPWd: 1.2 cm (0.6 - 1.1) IVSs: 1.3 cm LVIDs: 1.4 cm LVPWs: 1.7 cm LAESV Index (A-L): 13.93 ml/m Ao Diam: 2.6 cm (2.0 - 3.7) AV Cusp: 2.0 cm (1.5 - 2.6) LA Diam: 2.4 cm (2.7 - 3.8) MV EXCURSION: 11.800 mm (> 18.000) MV EF SLOPE: 41 mm/s (70 - 150) EPSS: 0.7 cm MV E Beni: 0.59 m/s MV DecT: 166 ms MV A Beni: 0.68 m/s MV E/A Ratio: 0.87 RAP: 5.00 mmHg RVSP: 18.11 mmHg FINDINGS -------- Sinus rhythm. This was a technically good study. The left ventricular size is normal. There is mild concentric left ventricular hypertrophy. Overa ll left ventricular systolic function is normal with, an EF between 55 - 60 %. The diastolic fillin g pattern is normal for the age of the patient {E/E'}. The right ventricle is normal in size. The left atrial size is normal. Normal LA size by volume 22+/-6 ml/m2. The right atrial size is normal. The aortic valve is trileaflet and appears structurally normal. The mitral valve is normal. There is trace mitral regurgitation. The tricuspid valve appears structurally normal. Trace tricuspid regurgitation present. Right claudine tricular systolic pressure is normal at < 35 mmHg. There is no pulmonic regurgitation present. The aortic root size is normal. Normal inferior vena cava with normal inspiratory collapse consistent with estimated right atrial pre ssure of 5 mmHg. There is no pericardial effusion. CONCLUSIONS -------- 1. Sinus rhythm. 2. This was a technically good study. 3. The left ventricular size is normal. 4. There is mild concentric left ventricular hypertrophy. 5. Overall left ventricular systolic function is normal with, an EF between 55 - 60 %. 6. The diastolic filling pattern is normal for the age of the patient {E/E'} 7. The right ventricle is normal in size. 8. The left atrial size is normal. 9. Normal LA size by volume 22+/-6 ml/m2. 10. The right atrial size is normal. 11. The aortic valve is trileaflet and appears structurally normal. 12. The mitral valve is normal. 13. There is trace mitral regurgitation. 14. The tricuspid valve appears structurally normal. 15. Trace tricuspid regurgitation present. 16. Right ventricular systolic pressure is normal at < 35 mmHg. 17. There is no pulmonic regurgitation present. 18. The aortic root size is normal. 19. Normal inferior vena cava with normal inspiratory collapse consistent with estimated right atrial pressure of 5 mmHg. 20. There is no pericardial effusion. PERFORMANCE MAKEUP ARTIST: Emili Castaneda RDCS
== END | disposition home or self-care (01) ==
LOC: RADECHMAIN 14:45
PROVIDERS: ATTEND Family Medicine
DX: G45.9 Transient cerebral ischemic attack, unspecified (principal)
CPT/HCPCS: 93306

== ENCOUNTER → 2020-01-04 | Outpatient (CLI) | payer MEDICARE, BC ==
[2020-01-04 08:29] VITALS: BP 148/86; PULSE 85; RESP 14; TEMP 98.6
--- NOTE | 2020-01-04 08:53 | P.PAINPG ---
Subjective Progress Note Date: 01/04/20 This is 64 years old female with a chronic history of severe low back pain, is very close with lumbar spondylosis with lumbar facet arthropathy and right sacroiliitis right sacroiliac joint dysfunction, January 2019 we have done RFA over the right sacroiliac joint, she gets excellent pain relief, and then she started having severe low back pain a few weeks ago, currently the pain in the low back area localized mainly on the right side of the low back area and radiated to the right buttock, she denies any fever or night sweats which denies any change in bowel movements or urination, she continued to use [place] 10/325 every 8 hours when necessary she'll get her prescription refilled from her primary care, she denies any side effect of the medication Objective - Vital Signs Vital signs: Vital Signs Temp 98.6 F 01/04/20 08:21 Pulse 85 01/04/20 08:21 Resp 14 01/04/20 08:21 BP 148/86 01/04/20 08:21 Pulse Ox 97 01/04/20 08:21 - Exam Physical Examinations : -Constitutiona : Cooperative , not in acute distress . -HEENT : nech : supple , no Lymphadenopathy , normal thyroid size . : eyes : no ptosis , no icterus, no photophobia . . - neurologic : Cranial nerve II to XII intact , no focal neurological deffecit . -psychatric : alert , oriented X 3 , appropriate affect , intact judgment and insight . -Lymphatic : no Lymphadenopathy . - musculoskeltal : Lumber spine moter stegnth lower extremities ,thigh and legs 5/5 Right side , 5/5 Left side deep tendon reflexes : normal Knee Jerk , normal ankle Jerk lumber facet Loading Test =positive Right , positive Left Range of motion of the lumbar spine Flexion 30 degrees, extension 10 degrees strait leg raising test = positive at 60 degree Fabere test= positive Right , and positive LT . Sever tenderness over the Sacroiliac joint on the Right Gaenslen test= positive right . Seated flexion test= positive right . Severe tenderness over the right iliac crest at the location of the surgical scar area, the scar healed appropriately no erythema no discharge Assessment and Plan Plan: Assessment and plan= 1-right sacroiliitis , right sacroiliac joint dysfunction She'll get excellent relief after RFA of the right sacroiliac joint he will be good candidate to have repeat RFA (RFA right L5-S1 dorsal ramus , RFA lateral branches S1 S2 S3 ) 2- painful scar on the right iliac crest area She could benefit from scar tissue steroid infiltrations. 3-postlaminectomy pain syndrome lumbar. She should continue her current medication [place] 10/325 as prescribed by her primary care Time with Patient: Less than 30 PQRS Measure Charge Sheet Measure #130: Documentation of Current Meds in Medical Chart: Patient's medications documented in chart Measure #226: Tobacco Use: Screen & Cessation Intervention: Pt not a tobacco user Measure #111: Pneumonia Vaccination: Pneumococcal vaccine administered or previously received Measure #47: Advance Care Plan: Advance care planning discussed & documented, pt chose/unable to give Measure #412: Opioid Treatment Agreement: No documentation of signed opioid treatment agreement Measure #408: Opioid Therapy Follow-up Evaluation: Patient had NO f/u eval minimum every 3 months during opioid therapy Measure #317: Preventitive Care & Scrn High Bld Press & F/U: Pre-hypertensive or hypertensive BP documented, pt will f/u with PCP Measure #128: Body Mass Index (BMI) Screening & Follow-up: BMI documented ABOVE normal parameters - f/u documented Measure #131: Pain Assessment & Follow-up: Pain positive & plan documented, Follow-up scheduled Measure #431: Unhealthy Alcohol Use Preventative Care & Scrn: Patient not identified as an unhealthy alcohol user PQRS Narrative: Smoking Status Former smoker Blood Pressure 148/86 Pain Intensity [Back] 3 Scale Used Numeric (1 - 10) Hx Alcohol Use (MH) Yes: OCCASIONAL Home Medications: Ambulatory Orders ALPRAZolam [Xanax] 0.5 mg PO DAILY PRN 07/29/17 Albuterol Inhaler (Mhu) [Ventolin Hfa Inhaler] 2 puff INHALATION QID PRN 07/29/17 Cyclobenzaprine [Flexeril] 10 mg PO HS PRN 07/29/17 Ezetimibe 10 mg PO DAILY 07/29/17 Fluticasone Nasal [place] [Flonase Nasal [place]] 1 spray NASAL MOTUWETH 07/29/17 Hydrocodone/Acetaminophen [[place] 10-325] 1 tab PO TID PRN 07/29/17 Loratadine [Claritin] 10 mg PO DAILY PRN 07/29/17 Omeprazole [PriLOSEC] 20 mg PO DAILY PRN 07/29/17 Phenylephrine HCl [Sudafed PE] 10 mg PO HS PRN 07/29/17 Saliva Stimulant Agents Comb.3 [Biotene Moisturizing Mouth] 1 spray PO HS PRN 07/29/17 Alendronate Sodium [Fosamax] 40 mg PO MO 09/24/17 Cholecalciferol [Vitamin D3] 2,000 unit PO DAILY 10/10/17 methocarbamoL [Robaxin] 1,000 mg PO DAILY PRN 12/20/17 Zolpidem Tartrate [Ambien] 10 mg PO HS PRN 01/06/18 Magnesium Oxide [Mag-Ox] 250 mg PO DAILY 01/22/19 Potassium Gluconate 99 mg PO DAILY 01/22/19 Donepezil HCl [Aricept] 10 mg PO DAILY 12/31/19 levETIRAcetam [Keppra] 500 mg PO Q12HR 12/31/19 Controlled Substance Measures - Controlled Substance Measures Is patient prescribed a controlled substance at discharge?: No
== END | disposition home or self-care (01) ==
LOC: PNWHC3 08:04
PROVIDERS: ATTEND Specialist
DX: G89.29 Other chronic pain (principal); M47.816 Spondylosis without myelopathy or radiculopathy, lumbar region; M53.3 Sacrococcygeal disorders, not elsewhere classified; Z87.891 Personal history of nicotine dependence; Z79.899 Other long term (current) drug therapy; Z98.890 Other specified postprocedural states
CPT/HCPCS: 99211

== ENCOUNTER → 2020-01-04 | Outpatient (CLI) | payer MEDICARE, BC ==
--- NOTE | 2020-01-04 15:49 | CTL ---
EXAMINATION TYPE: CT Low Dose Lung DATE OF EXAM ORDERED: 01/04/2020 HISTORY: Long-term tobacco use. Lung cancer screening CT DLP: 135.[address] CTDI: 4.0 mGy Automated exposure control for dose reduction was used. SCREENING VISIT: First study after baseline COMPARISON: Prior study December 29, 2018 TECHNIQUE: Low dose computed tomography scan was performed through the chest at 1 mm thick sections a nd reconstructed images in the coronal plane at [address] DIAGNOSTIC QUALITY: Satisfactory FINDINGS: LUNG NODULES: None. Incidental calcified posterior 3 mm right basilar nodule or granuloma axial image 233 and similar fin ding left lower lobe axial image 157 . No new greater than 4 mm noncalcified pulmonary nodule. LUNGS: COPD: Severity: None Fibrosis: Severity: Minimal left basilar Lymph nodes: None Other findings: None. BILATERAL PLEURAL SPACE: Effusion: None Calcification: None Thickening: None Pneumothorax: None HEART: Heart Size: Normal Coronary calcification: None Pericardial effusion: None OTHER FINDINGS: Upper abdomen: Cholecystectomy clips are redemonstrated. Bony thorax: Postsurgical change to the cervical spine partially imaged. Supraclavicular region: None. Other: None. IMPRESSION: No suspicious new noncalcified nodules. FOLLOW UP CT CHEST RECOMMENDATION: Annual low-dose lung screening CT CT LUNG RAD: Lung-Rad 1 Negative
== END | disposition home or self-care (01) ==
LOC: RADCTMAIN 15:13
PROVIDERS: ATTEND Family Medicine
DX: Z12.2 Encounter for screening for malignant neoplasm of respiratory organs (principal); Z87.891 Personal history of nicotine dependence

== ENCOUNTER 2020-01-28 08:39 | Day surgery (SDC) | payer MEDICARE, BC ==
[2020-01-26 08:53] VITALS: BMI 32.5
[2020-01-28 08:55] VITALS: RESP 16; TEMP 97.5
[2020-01-28] MEDS: LACTATED RINGERS 1,000 ML IV SCH ×2 (09:00→09:23)
[2020-01-28] MEDS ORDERED: LIDOCAINE 1% (10MG/ML) FOR IV START INTRADERMA ONE (09:00)
[2020-01-28] MEDS ORDERED: MIDAZOLAM 2 MG/2 ML VIAL ONE (09:25)
[2020-01-28] MEDS ORDERED: methylPREDNISolone ACETATE 40 MG/ML 1 ML VIAL ONE (09:25)
[2020-01-28] MEDS ORDERED: fentaNYL (PF) 50 MCG/ML 2 ML AMP ONE (09:25)
[2020-01-28] MEDS ORDERED: ROPIVACAINE 5MG/ML 20ML VIAL ONE (09:25)
[2020-01-28] MEDS ORDERED: IV FLUID CONTINUATION 650 ML IV ONE (10:01)
--- NOTE | 2020-01-28 10:02 | P.PCN ---
Date of Procedure: 01/28/20 Procedure(s) Performed: PREOPERATIVE DIAGNOSIS: 1-Lumbosacral spondylosis with facet arthropathy without myelopathy. 2- Right sacroiliitis. 3-history of lumbar laminectomy and fusion surgery 4-painful scar right sacral area. post operative Diagnosis: . 1-Lumbosacral spondylosis with facet arthropathy without myelopathy. 2- Right sacroiliitis. 3-history of lumbar laminectomy and fusion surgery 4--painful scar right sacral area PROCEDURES: 1- Right multi-site radiofrequency thermocoagulation/ablation of the S1, S2, and S3 lateral branchs. The procedure was performed using fluoroscopic guidance during needle placement to assure proper position and maximize safety 2-scar infiltration in the right sacral area. ANESTHESIA: moderate sedation with intravenous versed 2mg, and Fentanyle 100 mcg EBL: NONE INDICATION/MEDICAL NECESSITY: History of low back pain secondary to right sacroiliitis and lumbosacral arthropathy unresponsive to more conservative treatments. head greater than 70% relief with previous radio frequency ablation. PROCEDURE DESCRIPTION: The patient was seen and identified in the preoperative area. Risks, benefits, complications, and alternatives were discussed with the patient. The patient agreed to proceed with the procedure and signed the consent. Vital signs were checked before and after the procedure and they remained stable. Patient ambulated to the procedure room and time out was completed. The patient was placed in the prone position on the procedure table and a pillow was placed under the abdomen to reduce lumbar lordosis. The lumbosacral area was prepped and draped in the usual sterile fashion. Critical pause was taken. S1, S3, and S3 Lateral Branch RF: The the Right S1, S2, and S3 foramina were not visible with fluoroscopy. Because of the hardware, and patient had significant amount of gas in the pelvic area, Under fluoroscopic guidance, three 10-cm 20 -gauge radiofrequency cannula with a 10-mm active tip was inserted at the median age of the right sacroiliac joint starting from the inferior border of the joints going superiorly total of 6 needle was placed, then after needle placement confirmed with the AP and lateral view, the sensory testing of the S1 lateral branch was performed at 50 Hz and 0 to 1 volt at the three levels with production of concordant pain starting at 0.5 volt. Motor stimulation was done at 2.5 Hz. No radicular sy mptoms or paresthesias were produced during the testing. Subsequently, the S1 , S2 , S3 lateral branch was subjected to a radiofrequency ablation at a mode of 90 seconds at 80 degrees Celsius at the 3 levels after negative motor and sensory testing and after injecting 0.5 ml of preservative free ropivacaine 0.5 %. Then before the needles taken out ropivacaine 0.5% 6 ml mixed with 30 mg of Depo-Medrol, and 1 mL of the mixture injected at each level after negative aspiration The needle was withdrawn intact after each injection. Then after that the right side sacral area scar and injected with the ropivacaine 0.5% total of 3 mL injected that was mixed with 10 mg of Depo- Medrol, injection done using 25-gauge needle and injections done after negative aspiration for heme or CSF there was no paresthesia during the injection patient tolerated the procedure well without any complications note= patient was scheduled to have RFA of the L5 -S1 dorsal ramus , but during the procedure I found out that she had hardware/fusion at that location, and the hardware was prevented us from accessing the area ,at the location of L5 and S1 dorsal ramus , for this reason it was not done COMPLICATIONS: The patient tolerated the procedure well without any acute complications. DISPOSTION/PLAN: The patient ambulated to the recovery area after the procedure in a stable condi tion for observation. Patient was reexamined prior to discharge. Patient was observed for 30 minutes in the recovery area and was discharged home, accompanied by an adult, after meeting discharged criteria. Discharge instructions were give to the patient by the staff. Patient was specifically instructed not to drive today and to rest for the rest of the day. The patient will schedule a follow up visit in the clinic in 4 weeks for post procedure follow-up.
[2020-01-28 10:22] VITALS: BP 115/75; PULSE 72
--- NOTE | 2020-01-28 10:54 | FL ---
EXAMINATION TYPE: FL guided pain mgmt statistic DATE OF EXAM: 01/28/2020 HISTORY: Fluoroscopy time 10 seconds of fluoroscopy provided. IMPRESSION: 1. Fluoroscopy time.
== END 2020-01-28 10:45 | disposition home or self-care (01) ==
LOC: ORPAIN 08:39
PROVIDERS: ATTEND Specialist
DX: M47.817 Spondylosis without myelopathy or radiculopathy, lumbosacral region (principal); M46.1 Sacroiliitis, not elsewhere classified; L90.5 Scar conditions and fibrosis of skin; Z98.1 Arthrodesis status; Z88.6 Allergy status to analgesic agent; Z91.09 Other allergy status, other than to drugs and biological substances
CPT/HCPCS: 64625; 11900; J2250; J1030; J3010; J2795; 64640; 99152

== ENCOUNTER → 2020-02-17 | Outpatient (CLI) | payer MEDICARE, BC | END | disposition home or self-care (01) | LOC: LABWHC1 15:51 | PROVIDERS: ATTEND Family Medicine | DX: R51.9 Headache, unspecified (principal) | CPT/HCPCS: U0003; C9803 ==

== ENCOUNTER → 2020-02-25 | Outpatient (CLI) | payer MEDICARE, BC ==
[2020-02-25 09:32] VITALS: BP 153/84; PULSE 60; RESP 16; TEMP 98.1
--- NOTE | 2020-03-25 13:52 | P.PAINPG ---
Subjective Progress Note Date: 02/24/20 Subjective Progress Note Date: 01/04/20 This is 64 years old female with a chronic history of severe low back pain, is very close with lumbar spondylosis with lumbar facet arthropathy and right sacroiliitis right sacroiliac joint dysfunction, the past she had SI joint RFA done in January 2019 which provided excellent relief. In her last visit she started having severe low back pain that started a few weeks ago and we just repeated the same SI joint RFA in January 2020 she is here for follow-up today which gave her about 75% relief. Patient says she is very satisfied with the SI joint RFA and is still feeling pain relief today. However she is noting that she is now feeling pain in her mid thoracic to low thoracic and lumbar area described as aching and dull without radiation to lower extremities. Pain is worst any flexion or extension and relieved by sitting. She is currently doing physical therapy which involves a lot of manual manipulation she says this is very helpful for her. She told me that her physical therapist told her that now that her SI joint pain is resolved she is likely feeling this new pain as it is been unmasked. She is curious about her options as she has had a medial branch block at L1-L2, L2-L3, L3-L4 in 2018 bilaterally which was helpful but we did not proceed RFA as she felt like the pain resolved. she denies any fever or night sweats which denies any change in bowel movements or urination, she continued to use [place] 10/325 every 8 hours when necessary she'll get her prescription refilled from her primary care, she denies any side effect of the medication Objective - Exam Physical Examinations : -Constitutiona : Cooperative , not in acute distress . -HEENT : nech : supple , no Lymphadenopathy , normal thyroid size . : eyes : no ptosis , no icterus, no photophobia . . - neurologic : Cranial nerve II to XII intact , no focal neurological deffecit . -psychatric : alert , oriented X 3 , appropriate affect , intact judgment and insight . -Lymphatic : no Lymphadenopathy . - musculoskeltal : Lumber spine moter stegnth lower extremities ,thigh and legs 5/5 Right side , 5/5 Left side deep tendon reflexes : normal Knee Jerk , normal ankle Jerk lumber facet Loading Test =positive Right , positive Left Range of motion of the lumbar spine Flexion 30 degrees, extension 10 degrees strait leg raising test = positive at 60 degree for low back pain Fabere test= positive Right , and positive LT . Sever tenderness over the Sacroiliac joint on the Right TTP over lumbar paraspinal muscles at L1-L4 Assessment and Plan Plan: Assessment and plan= 65-year-old female with low back pain and sacroiliac joint pain. Patient had a recent right sacral iliac joint RFA with 75% relief and is very happy with that. Currently patient is feeling pain in the areas of L1 to L4 described as dull and aching. We have done medial branch blocks in this area in 2018 which was successful did not proceed RFA as she felt like her pain was better. We had a long discussion about options, at this point we have opted for conservative therapy including continuing physical therapy, TENS unit, lidocaine patches and we can consider repeating medial branch blocks bilaterally at L1 to L2, L2-L3, L3-L4 in the future if the patient feels that she would like to pursue. She is hesitant to pursue burning further nerves that she is worried that she will have decreased feeling in her back and will not know if something is injured She should continue her current medication Coulter 10/325 as prescribed by her primary care PQRS Measure Charge Sheet Measure #130: Documentation of Current Meds in Medical Chart: Patient's medications documented in chart Measure #226: Tobacco Use: Screen & Cessation Intervention: Pt not a tobacco user Measure #111: Pneumonia Vaccination: Pneumococcal vaccine administered or previously received Measure #47: Advance Care Plan: Advance care planning discussed & documented, pt chose/unable to give Measure #412: Opioid Treatment Agreement: No documentation of signed opioid treatment agreement Measure #408: Opioid Therapy Follow-up Evaluation: Patient had NO f/u eval minimum every 3 months during opioid therapy Measure #317: Preventitive Care & Scrn High Bld Press & F/U: Pre-hypertensive or hypertensive BP documented, pt will f/u with PCP Measure #128: Body Mass Index (BMI) Screening & Follow-up: BMI documented ABOVE normal parameters - f/u documented Measure #131: Pain Assessment & Follow-up: Pain positive & plan documented, Follow-up scheduled Measure #431: Unhealthy Alcohol Use Preventative Care & Scrn: Patient not identified as an unhealthy alcohol user PQRS Narrative: Smoking Status Former smoker Blood Pressure 148/86 Pain Intensity [Back] 3 Scale Used Numeric (1 - 10) Hx Alcohol Use () Yes: OCCASIONAL Controlled Substance Measures - Controlled Substance Measures Is patient prescribed a controlled substance at discharge?: No PQRS Measure Charge Sheet PQRS Narrative: Smoking Status Former smoker Hx Alcohol Use () Yes: OCCASIONAL Home Medications: Ambulatory Orders ALPRAZolam [Xanax] 0.5 mg PO DAILY PRN 07/29/17 Albuterol Inhaler (Mhu) [Ventolin Hfa Inhaler] 2 puff INHALATION QID PRN 07/29/17 Cyclobenzaprine [Flexeril] 10 mg PO HS PRN 07/29/17 Ezetimibe 10 mg PO DAILY 07/29/17 Fluticasone Nasal [place] [Flonase Nasal [place]] 1 spray NASAL MOTUWETH 07/29/17 Hydrocodone/Acetaminophen [[place] 10-325] 1 tab PO TID PRN 07/29/17 Loratadine [Claritin] 10 mg PO DAILY PRN 07/29/17 Omeprazole [PriLOSEC] 20 mg PO DAILY PRN 07/29/17 Phenylephrine HCl [Sudafed PE] 10 mg PO HS PRN 07/29/17 Saliva Stimulant Agents Comb.3 [Biotene Moisturizing Mouth] 1 spray PO HS PRN 07/29/17 Alendronate Sodium [Fosamax] 40 mg PO MO 09/24/17 Cholecalciferol [Vitamin D3] 2,000 unit PO DAILY 10/10/17 methocarbamoL [Robaxin] 1,000 mg PO DAILY PRN 12/20/17 Zolpidem Tartrate [Ambien] 10 mg PO HS PRN 01/06/18 Magnesium Oxide [Mag-Ox] 250 mg PO DAILY 01/22/19 Potassium Gluconate 99 mg PO DAILY PRN 01/22/19 levETIRAcetam [Keppra] 500 mg PO Q12HR 12/31/19 Controlled Substance Measures - Controlled Substance Measures Is patient prescribed a controlled substance at discharge?: No
== END | disposition home or self-care (01) ==
LOC: PNWHC3 08:59
PROVIDERS: ATTEND Anesthesiology
DX: G89.29 Other chronic pain (principal); M47.816 Spondylosis without myelopathy or radiculopathy, lumbar region; M46.1 Sacroiliitis, not elsewhere classified; M53.3 Sacrococcygeal disorders, not elsewhere classified; Z87.891 Personal history of nicotine dependence; Z98.890 Other specified postprocedural states; Z79.899 Other long term (current) drug therapy
CPT/HCPCS: 99211

== ENCOUNTER → 2020-03-10 | Outpatient (CLI) | payer MEDICARE, BC ==
--- NOTE | 2020-03-11 02:28 | SFUN ---
SLEEP CENTER FOLLOW UP NOTE DATE OF SERVICE: 03/10/2020. This 65-year-old lady had been followed in Sleep Center for treatment of obstructive sleep apnea-hypopnea syndrome. The patient continued to use her equipment every night for the whole night without significant problems related to mask fitting, pressure or humidification. [place] Sleepiness Scale today is 2. I checked her CPAP unit. CPAP pressure is 13 cm of water. Usage is 30 out of 30 nights for more than 4 hours, average 7.8 hours per night. Leak is 14 L/minute. Apnea- hypopnea index is 1.8, which is perfect. MEDICATIONS: Ezetimibe 10 mg once a day, Robaxin 500 mg once a day, Flexeril 10 mg at bedtime, fluticasone 50 mcg 1-2 sprays to the nose on p.r.n. basis, Ambien 5 mg at bedtime, Xanax 0.5 mg up to 3 times a day for anxiety, [place] 10/325 mg on p.r.n. basis, Prilosec 20 mg for acid reflux, Fosamax 70 mg once a week. PHYSICAL EXAMINATION: GENERAL: Patient in no distress. VITAL SIGNS: BP 138/85, HR 74, RR 15, height 5 feet 4 inches, weight 193, BMI 33.1, temperature 97.4, oxygen saturation at room air 100%. HEENT: PERRLA, EOMI. Evaluation of oropharynx extremely low position of soft palate, Mallampati 4. NECK: Supple, no JVD. Thyroid is not palpable. LUNGS: Clear to percussion and to auscultation. Good air exchange. No wheezing or rhonchi. HEART: S1, S2 regular. No murmurs, gallops, or rubs. ABDOMEN: Obese. EXTREMITIES: No clubbing or cyanosis. ZINC ETCHER: Awake, alert, and oriented X3. Cranial nerves 2 to 7 intact. There is no fasciculation or atrophy. noted. No focal deficits observed. IMPRESSION: 1. Obstructive sleep apnea-hypopnea syndrome. Patient demonstrated 100% compliance with treatment, benefitting from treatment. 2. History of migraines. 3. Obesity. Patient increased weight of 6 pounds since last year. 4. History of depression. 5. Seasonal allergies. 6. Status post surgical treatment of sinus problems. 7. History of peptic ulcer disease. 8. History of chronic back pain. PLAN: 1. Patient will continue to use PAP equipment every night for the whole night. 2. Sleep hygiene with regular time in bed for at least 7-1/2 to 8 hours. 3. Precautions related to driving. No driving if feeling sleepiness. 4. I will maintain all necessary prescription for PAP supplies including mask, tube, filters. 5. Watching weight. 6. No driving if feeling sleepiness. 7. Follow-up visit in 6 months or earlier if patient has any problems. Thank you very much for allowing me to participate in management of your patient. Sincerely, Brandon Murray MD, PhD, FAASM Diplomat of [employer] [facility] [place] MMODL / ZAKIAN: [phone] /
== END | disposition home or self-care (01) ==
LOC: SLEEP 14:24
PROVIDERS: ATTEND Internal Medicine
DX: G47.33 Obstructive sleep apnea (adult) (pediatric) (principal); Z99.89 Dependence on other enabling machines and devices; E66.9 Obesity, unspecified; J30.2 Other seasonal allergic rhinitis; G89.29 Other chronic pain; M54.9 Dorsalgia, unspecified; Z87.11 Personal history of peptic ulcer disease; Z98.890 Other specified postprocedural states; Z86.59 Personal history of other mental and behavioral disorders

== ENCOUNTER → 2020-04-25 | Outpatient (CLI) | payer MEDICARE, BC ==
[2020-04-25 08:18] VITALS: BP 141/87; PULSE 82; RESP 18; TEMP 98.6
--- NOTE | 2020-05-04 14:54 | P.PAINPG ---
Subjective Progress Note Date: 04/25/20 This is 64 years old female with a chronic history of severe low back pain, is very close with lumbar spondylosis with lumbar facet arthropathy and right sacroiliitis right sacroiliac joint dysfunction, the past she had SI joint RFA done in January 2019 which provided excellent relief. In her last visit she started having severe low back pain that started a few weeks ago and we just repeated the same SI joint RFA in January 2020 she is here for follow-up today which gave her about 75% relief. She still having complaints of low thoracic high lumbar pain. She had a series of x-rays and a DEXA scan done which were ordered at her last visit. She has severe degenerative disc disease at L1-2 and L2-L3. She scheduled to see Dr. Montes who was her surgeon for her original lumbar fusion. She has a computed tomography scan and MRI ordered by him to have done prior to her visit this Saturday. Her symptoms have not changed significant relief from her last visit. VAS ranges from a 2-6 out of 10 in severity depending on activity level that day. She scheduled a throbbing aching pain in the midback also complaining of radiating pain down her right buttock and into the posterior part of her leg. She denies any bowel or bladder incontinence Objective - Exam General: Awake and alert oriented 3 no distress Respiratory exam: No audible wheezing no accessory muscle usage Cardiovascular exam: regular rate, palpable bilateral pulses, no lower extremity edema Abdominal exam: No distention nontender to palpation Cervical spine: Normal alignment, Spurling's negative, facet loading negative Lumbar spine: Loss of lumbar lordosis, surgical scars are well-healed normal alignment, tender to palpation over bilateral paraspinal muscles, facet loading is positive bilaterally. Straight leg raise is negative. Sacroiliac joints: Right SI joint tender to palpation, Chato's test is positive, Gaenslen test is positive. Assessment and Plan Assessment: Assessment: #1 lumbar postlaminectomy syndrome #2 sacroiliitis #3 a lumbar spondylosis without myelopathy Plan: #1 continue current physical therapy and physical exercise routine. #2 instructed patient to have her follow-up visit with her neurosurgeon sent to us for review. #3 we discussed lumbar facet joint injections as well as possible radiofrequency ablation, the first advised her to consult with her surgeon about this. PQRS: Separate sheet was filled out. PQRS Measure Charge Sheet PQRS Narrative: Smoking Status Former smoker Pain Intensity [Back] 5 Hx Alcohol Use (MH) Yes: OCCASIONAL Home Medications: Ambulatory Orders ALPRAZolam [Xanax] 0.5 mg PO DAILY PRN 07/29/17 Albuterol Inhaler (Mhu) [Ventolin Hfa Inhaler] 2 puff INHALATION QID PRN 07/29/17 Cyclobenzaprine [Flexeril] 10 mg PO HS PRN 07/29/17 Ezetimibe 10 mg PO DAILY 07/29/17 Hydrocodone/Acetaminophen [[place] 10-325] 1 tab PO TID PRN 07/29/17 Loratadine [Claritin] 10 mg PO DAILY PRN 07/29/17 Omeprazole [PriLOSEC] 20 mg PO DAILY PRN 07/29/17 Phenylephrine HCl [Sudafed PE] 10 mg PO HS PRN 07/29/17 Saliva Stimulant Agents Comb.3 [Biotene Moisturizing Mouth] 1 spray PO HS PRN 07/29/17 Alendronate Sodium [Fosamax] 40 mg PO MO 09/24/17 Cholecalciferol [Vitamin D3] 4,000 unit PO DAILY 10/10/17 methocarbamoL [Robaxin] 1,000 mg PO QID 12/20/17 Zolpidem Tartrate [Ambien] 10 mg PO HS PRN 01/06/18 Magnesium Oxide [Mag-Ox] 250 mg PO DAILY 01/22/19 Potassium Gluconate 99 mg PO DAILY PRN 01/22/19 levETIRAcetam [Keppra] 500 mg PO Q12HR 12/31/19 Controlled Substance Measures - Controlled Substance Measures Is patient prescribed a controlled substance at discharge?: No
== END | disposition home or self-care (01) ==
LOC: PNWHC3 08:07
PROVIDERS: ATTEND Anesthesiology
DX: M96.1 Postlaminectomy syndrome, not elsewhere classified (principal); M47.816 Spondylosis without myelopathy or radiculopathy, lumbar region; M46.1 Sacroiliitis, not elsewhere classified; Z87.891 Personal history of nicotine dependence; Z72.89 Other problems related to lifestyle; Z79.899 Other long term (current) drug therapy; Z79.4 Long term (current) use of insulin
CPT/HCPCS: 99211

== ENCOUNTER → 2020-05-18 | Outpatient (CLI) | payer MEDICARE, BC ==
[2020-05-18 13:21] VITALS: BP 129/80; PULSE 92; RESP 18; TEMP 98.1
--- NOTE | 2020-05-18 13:41 | P.PN ---
Subjective Progress Note Date: 05/18/20 Roasura presents for follow-up today secondary to her low back pain. Since her last visit she has seen her surgeon Dr. Montes. She reports that they did some imaging studies and neurosurgeon also agrees that she has facet joint pain above the level of fusion. Her pain is mostly 6 or 7 out of 10 with activity or with bending. The pain stays normal but without any radiation into the legs. She denies any new symptoms. She denies any bowel or bladder incontinence or any chest pain or shortness of breath. CT scans were reviewed today. The MRI shows facet joint degeneration multiple levels of the upper lumbar spine. There is also severe degenerative disc disease. 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 Flexion is limited, extension is limited. Straight leg raises negative bilaterally. Facet loading causes pain bilaterally. Pain is over the upper lumbar spine mainly. Sacroiliac joints: SI joint provocation causes pain bilaterally. Neuro exam: Normal sensation in bilateral upper extremities, deep tendon reflexes are 2+ bilateral upper extremities. Normal sensation in bilateral lower extremities. Deep tendon reflexes are 1+ in lower extremities Psych exam: Cooperative, appropriate mood Assessment and Plan Assessment: #1 Lumbar spondylosis without myelopathy #2 lumbar postlaminectomy Plan: After review the records and examination the patient, I reviewed the imaging studies resented to me today. I believe the patient is a good candidate for diagnostic medial branch blocks of the lumbar spine at L3 4 L4 5 or L2-3 as well. We will see what it looks like under x-ray guidance. I discussed the diagnostic testing as well as a potential for radiofrequency ablation the patient is very excited to move forward. We'll schedule her for that today. I have spent 38 minutes on patient care today. The time was used to review the medical records including relevant urine studies and Prescription history (MAPs), review of the available imaging, evaluation and examination of the patient, coordination of care with the medical staff and if applicable referring physicians, as well as creation of the medical record.
== END | disposition home or self-care (01) ==
LOC: PNWHC3 13:08
PROVIDERS: ATTEND Hospitalist
DX: M96.1 Postlaminectomy syndrome, not elsewhere classified (principal); M47.816 Spondylosis without myelopathy or radiculopathy, lumbar region
CPT/HCPCS: 99211

== ENCOUNTER 2020-06-03 09:45 | Day surgery (SDC) | payer MEDICARE, BC ==
[2020-05-31 10:30] VITALS: BMI 33.6
[~2020-06-03 09:45] MED LIST changes: +LACTATED RINGERS 1,000 ML IV SCH; -SODIUM CHLORIDE 0.9% 500 ML 500 ML IV SCH
[2020-06-03] MEDS ORDERED: LACTATED RINGERS 1,000 ML IV ONE (10:10)
[2020-06-03 10:15] VITALS: RESP 16; TEMP 97.6
[2020-06-03] MEDS ORDERED: methylPREDNISolone ACETATE 40 MG/ML 1 ML VIAL ONE (10:15)
[2020-06-03] MEDS ORDERED: ROPIVACAINE 5MG/ML 20ML VIAL ONE (10:15)
[2020-06-03] MEDS ORDERED: MIDAZOLAM 2 MG/2 ML VIAL ONE (10:15)
--- NOTE | 2020-06-03 10:26 | P.PCN ---
Date of Procedure: 06/03/20 Description of Procedure: Procedure: BILATERAL L3-4, L4-5 Diagnosis: Lumbar spondylosis without myelopathy Anesthesia: Local and IV conscious sedation Imaging: Fluoroscopy was used, images where saved to the medical record The patient was seen and examined in the [facility]. Procedure risks and benefits were fully reviewed with the patient. The patient understands this is a diagnostic if local only is used, as will be the case today. The goal of the procedure is to inject medication onto the medial branch or small nerves that innervate the facet joints. In this way, we can hopefully identify which of these joints, if any, may be contributing to their pain. Informed consent for procedure was obtained. The patient was taken into the office fluoroscopy procedure room and placed prone on the table. A pillow was placed under the abdomen to reduce lumbar lordosis. Vital signs were closely monitored during the procedure. The skin over the area was prepped with Betadine X 3 and draped in usual sterile manner. Sterile technique was observed throughout procedure. Under biplanar fluoroscopic guidance, the target injection area of the L4, L5 were targeted. A 25 gauge 31/2 inch spinal needle was then placed at the most medial and superior aspect of the transverse process near the "eye of the Hair dog". Aspiration for blood was negative. 1 cc of 0.5% Ropivacaine with 40 mg of Depo- Medrol total was injected into the targeted areas separately. [place] were withdrawn intact. No complications were noted during the procedure. The patient tolerated the procedure well. The patient was placed in supine position and transferred to the recovery area for observation and remained stable until discharged home. Home discharge instructions were given to the patient by the staff. The patient will schedule a follow up as directed.
[2020-06-03 10:30] VITALS: PULSE 79
[2020-06-03] MEDS ORDERED: IV FLUID CONTINUATION 1,000 ML IV ONE (10:30)
[2020-06-03 10:50] VITALS: BP 116/70
--- NOTE | 2020-06-03 11:08 | FL ---
Fluoroscopy HISTORY: Pain 7 seconds fluoroscopy time supplied to the referring clinician. 3 intraoperative C-arm images docume nt the procedure. See dictated report from anesthesia.
== END 2020-06-03 11:22 | disposition home or self-care (01) ==
LOC: ORPAIN 09:45
PROVIDERS: ATTEND Hospitalist
DX: M47.816 Spondylosis without myelopathy or radiculopathy, lumbar region (principal); Z88.6 Allergy status to analgesic agent; Z91.09 Other allergy status, other than to drugs and biological substances
CPT/HCPCS: 64493; 64494; J2250; J1030; J2795

== ENCOUNTER 2020-06-24 06:17 | Day surgery (SDC) | payer MEDICARE, BC ==
[2020-06-22 15:33] VITALS: BMI 32.5
[2020-06-24] MEDS: LACTATED RINGERS 1,000 ML IV SCH ×2 (06:50→06:59)
[2020-06-24] MEDS ORDERED: LIDOCAINE 1% (10MG/ML) FOR IV START INTRADERMA ONE (06:50)
[2020-06-24 06:56] VITALS: RESP 16; TEMP 98.4
[2020-06-24] MEDS ORDERED: methylPREDNISolone ACETATE 40 MG/ML 1 ML VIAL ONE (07:01)
[2020-06-24] MEDS ORDERED: ROPIVACAINE 5MG/ML 20ML VIAL ONE (07:01)
--- NOTE | 2020-06-24 07:28 | P.PCN ---
Date of Procedure: 06/24/20 Procedure(s) Performed: PREOPERATIVE DIAGNOSIS : 1- Lumbar spondylosis with Facet Arthropathy without myelopathy . POSTOPERATIVE DIAGNOSIS: 1- Lumbar spondylosis with Facet Arthropathy without myelopathy . PROCEDURE: Diagnostic bilateral L2 , L3 , L4 medial branch block under fluoroscopy guidance(fluoroscopy images available in the radiology Department ) ( To target the facet joint betweenL3-4, L4-5 ) ANESTHESIA: monitered anesthesia care as per anesthesia department EBL: Minimal COMPLICATION: None PROCEDURE INDICATION: Chronic low back pain secondary to Facet arthropathy unresponsive to conservative treatment. PROCEDURE DESCRIPTION: the patient was seen and identified in the preop holding area , risks and benefits and possible complications of the procedure and alternative were discussed with the patient, and the patient agreed to proceed with the procedure and signed the consent and vital signs monitored during the procedure and fluoroscopy was used to maximize the benefit and accuracy of the needle placement, and sedation was given to decrease patient anxiety, patient was taken to the procedure room and placed in prone position vital signs monitored in the back prepped with chlorhexidine X3 then under strict sterile technique using a right oblique fluoroscopy ,the junction of the transverse process and the superior articulating process of the right L2 , L3 , L4 , vertebra which corresponding to the fluoroscopy image of the eye of the Hair dog on the block side for the medial branches and subsequently , after local infiltration of skin and subcu tissuies with Ropivacaine 0.5 % , one mL at each level ,then 22-gauge Quincke-type needles , 3 needle was used , each one of them placed at the junction of the base of the transverse process and the superior articular process at the appropriate level, and the needle was advanced until the periosteum contacted, needle placement confirmed with AP oblique and lateral view and after appropriate needle placement confirmed, and after negative aspiration for heme and CSF and there was no paresthesia 1-1/2 mL of Ropivacaine 0.5% mixed with 20 mg Depo-Medrol , then half mL injected at each level after negative aspiration the needle subsequently removed and the same procedure repeated for the left side at left side at L2, L3 , L4 levels. At the end of the procedure and the needles removed and a bandage applied after the skin was cleaned the cleaning solution patient taken to recovery room in stable condition and monitors in the recovery room for 20-30 minutes and discharged home in stable condition after discharge criteria met and patient will follow up with the pain clinic in 2-4 weeks
[2020-06-24] MEDS ORDERED: IV FLUID CONTINUATION 800 ML IV ONE (07:32)
[2020-06-24 07:47] VITALS: BP 125/84; PULSE 70
[2020-06-24] MEDS ORDERED: MIDAZOLAM 2 MG/2 ML VIAL ONE (08:06)
[2020-06-24] MEDS ORDERED: fentaNYL (PF) 50 MCG/ML 2 ML AMP ONE (08:06)
--- NOTE | 2020-06-24 11:09 | FL ---
EXAMINATION TYPE: FL guided pain mgmt statistic DATE OF EXAM: 06/24/2020 HISTORY: Fluoroscopy time 5 seconds of fluoroscopy provided. IMPRESSION: 1. Fluoroscopy time.
== END 2020-06-24 07:58 | disposition home or self-care (01) ==
LOC: ORPAIN 06:17
PROVIDERS: ATTEND Specialist
DX: G89.29 Other chronic pain (principal); M47.816 Spondylosis without myelopathy or radiculopathy, lumbar region; Z88.6 Allergy status to analgesic agent; Z91.09 Other allergy status, other than to drugs and biological substances; R56.9 Unspecified convulsions
CPT/HCPCS: 64493; 64494; J2250; J1030; J3010; J2795

== ENCOUNTER → 2020-07-11 | Outpatient (CLI) | payer MEDICARE, BC ==
[2020-07-11 14:15] VITALS: BP 132/84; PULSE 71; RESP 16; TEMP 98.3
--- NOTE | 2020-07-11 14:40 | P.PN ---
Subjective Progress Note Date: 07/11/20 This is 65 years old female with a chronic history of severe low back pain, she is diagnosed with lumbar spondylosis with lumbar facet arthropathy and sacroiliitis r sacroiliac joint dysfunction, recently with a diagnostic medial branch block lumbar area, she reported that she get 100% relief after the first diagnostic block and the pain relief was only for short-term, and she get 80% relief after the second diagnostic medial branch block and the pain relief was only for short-term goals, currently the pain in the low back area , she denies any fever or night sweats which denies any change in bowel movements or urination, she continued to use Flora 10/325 every 8 hours when necessary she'll get her prescription refilled from her primary care, she denies any side effect of the medication Physical Examinations : -Constitutiona : Cooperative , not in acute distress . -HEENT : nech : supple , no Lymphadenopathy , normal thyroid size . : eyes : no ptosis , no icterus, no photophobia . . - neurologic : Cranial nerve II to XII intact , no focal neurological deffecit . -psychatric : alert , oriented X 3 , appropriate affect , intact judgment and insight . -Lymphatic : no Lymphadenopathy . - musculoskeltal : Lumber spine moter stegnth lower extremities ,thigh and legs 5/5 Right side , 5/5 Left side deep tendon reflexes : normal Knee Jerk , normal ankle Jerk lumber facet Loading Test =positive Right , positive Left Range of motion of the lumbar spine Flexion 30 degrees, extension 10 degrees strait leg raising test = positive at 60 degree Fabere test= positive Right , and positive LT . Sever tenderness over the Sacroiliac joint on the Right Gaenslen test= positive right . Seated flexion test= positive right . Assessment and plan= 1-lumbar spondylosis with lumbar facet a rthropathy without myelopathy Patient had 100% relief after the first diagnostic medial branch block and 80% relief after the second diagnostic medial branch block 2- sacroiliitis 3-postlaminectomy pain syndrome lumbar. Patient to be good candidate to have RFA of the medial branch lumbar area at L2, L3 , L4 (to denervate the facet joint at L3 4, L4 5) Time with Patient: Less than 30 PQRS Measure Charge Sheet Measure #130: Documentation of Current Meds in Medical Chart: Patient's medications documented in chart Measure #226: Tobacco Use: Screen & Cessation Intervention: Pt not a tobacco user Measure #111: Pneumonia Vaccination: Pneumococcal vaccine administered or previously received Measure #47: Advance Care Plan: Advance care planning discussed & documented, pt chose/unable to give Measure #412: Opioid Treatment Agreement: No documentation of signed opioid treatment agreement Measure #408: Opioid Therapy Follow-up Evaluation: Patient had NO f/u eval minimum every 3 months during opioid therapy Measure #317: Preventitive Care & Scrn High Bld Press & F/U: Normal BP documented, pt will f/u with PCP Measure #128: Body Mass Index (BMI) Screening & Follow-up: BMI documented ABOVE normal parameters - f/u documented Measure #131: Pain Assessment & Follow-up: Pain positive & plan documented, Follow-up scheduled Measure #431: Unhealthy Alcohol Use Preventative Care & Scrn: Patient not identified as an unhealthy alcohol user PQRS Narrative: Objective - Vital Signs Vital signs: Vital Signs Temp 98.3 F 07/11/20 14:09 Pulse 71 07/11/20 14:09 Resp 16 07/11/20 14:09 BP 132/84 07/11/20 14:09 Pulse Ox 99 07/11/20 14:09
== END ==
LOC: PNWHC3 13:44
PROVIDERS: ATTEND Specialist
DX: M47.816 Spondylosis without myelopathy or radiculopathy, lumbar region (principal); M46.1 Sacroiliitis, not elsewhere classified; M96.1 Postlaminectomy syndrome, not elsewhere classified
CPT/HCPCS: 99211

== ENCOUNTER 2020-07-15 12:14 | Day surgery (SDC) | payer MEDICARE, BC ==
[2020-07-13 11:58] VITALS: BMI 32.5
[2020-07-15 13:15] VITALS: RESP 16; TEMP 97.9
[2020-07-15] MEDS ORDERED: ROPIVACAINE 5MG/ML 20ML VIAL ONE (13:43)
[2020-07-15] MEDS ORDERED: fentaNYL (PF) 50 MCG/ML 2 ML AMP ONE (13:43)
[2020-07-15] MEDS ORDERED: methylPREDNISolone ACETATE 40 MG/ML 1 ML VIAL ONE (13:43)
[2020-07-15] MEDS ORDERED: MIDAZOLAM 2 MG/2 ML VIAL ONE (13:43)
--- NOTE | 2020-07-15 14:18 | FL ---
EXAMINATION TYPE: FL guided pain mgmt statistic DATE OF EXAM: 07/15/2020 HISTORY: Fluoroscopy time 22 seconds of fluoroscopy provided. IMPRESSION: 1. Fluoroscopy time.
[2020-07-15] MEDS ORDERED: IV FLUID CONTINUATION 1,000 ML IV ONE (14:20)
--- NOTE | 2020-07-15 14:21 | P.PCN ---
Date of Procedure: 07/15/20 Procedure(s) Performed: PREOPERATIVE DIAGNOSIS: 1-Lumbar Spondylosis with Facet Arthropathy without myelopathy. POSTOPERATIVE DIAGNOSIS: 1- Lumbar Spondylosis with Facet Arthropathy without myelopathy. PROCEDURES : Bilateral Radiofrequency thermocoagulation L2 , L3 , L4 medial branch, with fluoroscopic guidance (fluoroscopy images available in the radiology department) ( to denervate the facet joint at L3-4, and L4-5 levels ) ANESTHESIA: Monitored anesthesia care as per anesthesia department. EBL: Minimal PROCEDURE INDICATION: The patient with low back pain secondary to lumbar facet arthropathy who had more than 50% relief of her pain with previous diagnostic lumbar medial branch block with bupivacaine. PROCEDURE DESCRIPTION / TECHNIQUE: The patient was seen and identified in the preoperative area. Risks, benefits, complications, including but not limited to risk of infection ,bleeding , allergic reactions to the medications and no complete pain releife , and alternatives were discussed with the patient, the patient agreed to proceed with the procedure and signed the consent. IV was started. Vital signs remained stable throughout the procedure. Patient was taken to the OR and time out was completed. The patient was placed in the prone position on the procedure table. The lumber area was prepped and draped in the usual sterile fashion. . Vital signs were closely monitored during the procedure .IV sedation was used during the procedure to decrease patients anxiety. Using AP and then oblique fluoroscopy, the ``eye of the Hair dog corresponding to the connection between the superior and transverse articular processes of right L2, L3, L4,were identified, marked, and localized with 1% lidocaine. Subsequently, a 18 guage ( VENUM )100-mm radiofrequency cannula with a 10-mm active tip was advanced guided by fluoroscopy to each of the``eyes of the Hair dog at right L2, L3, L4, Each site then underwent sensory testing at 50 Hz and 0 to 1 volt and motor testing at 2.5 Hz and 0 to 3 volt with local stimulation, but no radicular symptoms down the legs. Thereafter each sites underwent radiofrequency thermocoagulation at 80 degrees celsius for 90 seconds after injecting 0.5 ml of PF Ropivacaine 1ml, then after the t hermocoagulation done , 1 ml of the block solution containing Depo-Medrol 20 mg and 3 ml of Ropivacaine 0.5% was injected at the right L2, L3 , L4 , levels after negative aspiration of CSF and blood and with no paresthesias. Cannulas were retracted while injecting lidocaine 1% until the needle is out. The same procedure was repeated at the level of Left L2 , L3, L4 levels. At the end of the procedure, the skin was cleansed and bandages were applied. COMPLICATIONS: No acute complications. DISPOSITION / PLANS: The patient was placed in a supine position and transferred to the recovery area in a stable condition for observation and was discharged from the recovery room after meeting discharge criteria. Home discharge instructions given to the patient by the staff. The patient was ree xamined prior to discharge. The patient will schedule a follow up in the clinic in 2-4 weeks.
[2020-07-15 14:58] VITALS: BP 138/77; PULSE 82
== END 2020-07-15 14:51 | disposition home or self-care (01) ==
LOC: ORPAIN 12:14
PROVIDERS: ATTEND Specialist
DX: M47.816 Spondylosis without myelopathy or radiculopathy, lumbar region (principal); E78.5 Hyperlipidemia, unspecified; J45.909 Unspecified asthma, uncomplicated; G47.33 Obstructive sleep apnea (adult) (pediatric); E07.9 Disorder of thyroid, unspecified; R56.9 Unspecified convulsions; F41.9 Anxiety disorder, unspecified; F32.9 Major depressive disorder, single episode, unspecified; K58.9 Irritable bowel syndrome, unspecified; Z79.891 Long term (current) use of opiate analgesic; Z79.899 Other long term (current) drug therapy; Z88.2 Allergy status to sulfonamides; Z88.6 Allergy status to analgesic agent; Z91.09 Other allergy status, other than to drugs and biological substances; Z88.8 Allergy status to other drugs, medicaments and biological substances
CPT/HCPCS: 64635; 64636; J2250; J1030; J3010; J2795

== ENCOUNTER → 2020-08-03 | Outpatient (CLI) | payer MEDICARE, BC ==
[2020-08-03 09:03] VITALS: BP 137/75; PULSE 87; RESP 18; TEMP 98
--- NOTE | 2020-08-03 09:09 | P.PN ---
Subjective Progress Note Date: 08/03/20 This is follow up visit for this 65 years old female with history of severe and chronic low back pain, she is diagnosed with lumbar spondylosis with lumbar facet arthropathy and sacroiliitis ,sacroiliac joint dysfunction, status post RFA of the medial branch lumbar area, currently she is complaining of severe pain in the buttock bilaterally, , she denies any fever or night sweats which denies any change in bowel movements or urination, she continued to use Depue 10/325 every 8 hours when necessary she'll get her prescription refilled from her primary care, she denies any side effect of the medication Physical Examinations : -Constitutiona : Cooperative , not in acute distress . -HEENT : nech : supple , no Lymphadenopathy , normal thyroid size . : eyes : no ptosis , no icterus, no photophobia . - neurologic : Cranial nerve II to XII intact , no focal neurological deffecit . -psychatric : alert , oriented X 3 , appropriate affect , intact judgment and insight . -Lymphatic : no Lymphadenopathy . - musculoskeltal : Lumber spine moter stegnth lower extremities ,thigh and legs 5/5 Right side , 5/5 Left side deep tendon reflexes : normal Knee Jerk , normal ankle Jerk lumber facet Loading Test =positive Right , positive Left Range of motion of the lumbar spine Flexion 30 degrees, extension 10 degrees strait leg raising test = positive at 45 degree Fabere test= positive Right , and positive LT . Sever tenderness over the Sacroiliac joint on the Right , and Left sides Gaenslen test= positive right ,and p ositive left . Seated flexion test= positive right ,and positive Left . Distraction test= positive bilaterally Sacroiliac compression test= positive bilaterally Assessment and plan= 1-lumbar spondylosis with lumbar facet arthropat hy without myelopathy 2- bilaterally sacroiliitis 3-postlaminectomy pain syndrome lumbar. Patient could benefit from bilateral sacroiliac joint steroid injection Time with Patient: Less than 30 PQRS Measure Charge Sheet Measure #130: Documentation of Current Meds in Medical Chart: Patient's medications documented in chart Measure #226: Tobacco Use: Screen & Cessation Intervention: Pt not a tobacco user Measure #111: Pneumonia Vaccination: Pneumococcal vaccine administered or previously received Measure #47: Advance Care Plan: Advance care planning discussed & documented, pt chose/unable to give Measure #412: Opioid Treatment Agreement: No documentation of signed opioid treatment agreement Measure #408: Opioid Therapy Follow-up Evaluation: Patient had NO f/u eval minimum every 3 months during opioid therapy Measure #317: Preventitive Care & Scrn High Bld Press & F/U: Normal BP doc umented, pt will f/u with PCP Measure #128: Body Mass Index (BMI) Screening & Follow-up: BMI documented ABOVE normal parameters - f/u documented Measure #131: Pain Assessment & Follow-up: Pain positive & plan documented, Follow-up scheduled Measure #431: Unhealthy Alcohol Use Preventative Care & Scrn: Patient not identified as an unhealthy alcohol user PQRS Narrative: Objective - Vital Signs Vital signs: Vital Signs Temp 98.0 F 08/03/20 08:59 Pulse 87 08/03/20 08:59 Resp 18 08/03/20 08:59 BP 137/75 08/03/20 08:59 Pulse Ox 97 08/03/20 08:59
== END ==
LOC: PNWHC3 08:45
PROVIDERS: ATTEND Specialist
DX: M47.816 Spondylosis without myelopathy or radiculopathy, lumbar region (principal); M46.1 Sacroiliitis, not elsewhere classified; M96.1 Postlaminectomy syndrome, not elsewhere classified; Z87.891 Personal history of nicotine dependence
CPT/HCPCS: 99211

== ENCOUNTER 2020-08-25 07:51 | Day surgery (SDC) | payer MEDICARE, BC ==
[2020-08-23 08:31] VITALS: BMI 31.4
[2020-08-25] MEDS ORDERED: LIDOCAINE 1% (10MG/ML) FOR IV START INTRADERMA ONE (08:35)
[2020-08-25 08:42] VITALS: RESP 16; TEMP 97.6
[2020-08-25] MEDS ORDERED: MIDAZOLAM 2 MG/2 ML VIAL ONE (08:57)
[2020-08-25] MEDS ORDERED: fentaNYL (PF) 50 MCG/ML 2 ML AMP ONE (08:57)
[2020-08-25] MEDS ORDERED: TRIAMCINOLONE ACETONIDE 40 MG/ML 1 ML VIAL ONE (08:57)
[2020-08-25] MEDS ORDERED: ROPIVACAINE 5MG/ML 20ML VIAL ONE (08:57)
--- NOTE | 2020-08-25 09:09 | P.PCN ---
Date of Procedure: 08/25/20 Surgeon: Jesus Ramsey Pathology: none sent Condition: stable Disposition: PACU Description of Procedure: urgeon: Jesus Ramsey Pathology: none sent Condition: stable Disposition: PACU Description of Procedure: Preoperative diagnoses= bilateral sacroiliac joint dysfunction and sacroiliitis Postoperative diagnoses= same as preoperative diagnosis. Procedure= bilateral sacroiliac joint steroid injection under fluoroscopic guidance. Anesthesia= local anesthesia with lidocaine 1% and IV moderate conscious sedation with fentanyl and Versed Estimated blood loss=minimal. Procedure indication= the patient had a history of severe chronic low back pain, diagnosed with sacroiliitis and lumbar sacral facet arthropathy unresponsive to conservative treatment. Procedure description= the patient was seen and identified in the preoperative holding area, risks and benefits and alternative of the procedure and possible complications discussed with the patient, patient signed the consent. an IV was started, and vital signs were monitored and were stable throughout the procedure, patient was placed in the prone position or table and the lumbosacral area was prepped and draped with a sterile fashion, vital signs were closely monitored during the procedure.The sacroiliac joint was identified on the AP view of fluoroscopy then the C-arm was tilted to the contralateral oblique position to superimpose the anterior and posterior joint lines on each other and to have a unified joint line with the target point at the inferior one third of this line. I used 22-gauge 3-1/2 inch Quincke spinal needle for this procedure and after getting into the sacroiliac joint I injected 20 mg of Kenalog +2 MLS of Ropivacaine 0.5%. The same procedure was repeated on the opposite side in the same manner. Patient tolerated the procedure well without any complication, The patient returned to supine position after the back was cleaned and a Band- Aid applied, the patient transported to recovery room in stable condition and he was monitored for 30 minutes before she was discharged home in stable condition . patient will follow up with the pain clinic in a few weeks. A copy of the needle placement was saved to the C-arm machine.
[2020-08-25] MEDS ORDERED: IV FLUID CONTINUATION 800 ML IV ONE (09:13)
[2020-08-25 09:32] VITALS: BP 101/68; PULSE 78
--- NOTE | 2020-08-25 09:49 | FL ---
Fluoroscopy HISTORY: Pain 6 seconds fluoroscopy time supplied to the referring clinician. 2 intraoperative C-arm images docume nt the procedure. See dictated report from anesthesia.
== END 2020-08-25 09:45 | disposition home or self-care (01) ==
LOC: ORPAIN 07:51
PROVIDERS: ATTEND Anesthesiology
DX: M46.1 Sacroiliitis, not elsewhere classified (principal); M53.3 Sacrococcygeal disorders, not elsewhere classified
CPT/HCPCS: J2250; J3301; J3010; J2795; G0260

== ENCOUNTER → 2020-09-28 | Outpatient (CLI) | payer MEDICARE, BC ==
[2020-09-28 09:12] VITALS: BP 134/83; PULSE 76; RESP 16; TEMP 97.9
--- NOTE | 2020-09-28 09:13 | P.PAINPG ---
Subjective Progress Note Date: 09/28/20 This is follow up visit for this 65 years old female with history of severe and chronic low back pain, she is diagnosed with lumbar spondylosis with lumbar facet arthropathy and sacroiliitis ,sacroiliac joint dysfunction. We did bilateral RFA's for her and the lumbar region in her last visit was complaining of severe pain in the buttocks. We just performed bilateral SI joint injections for her. she continued to use [place] 10/325 every 8 hours when necessary she'll get her prescription refilled from her primary care, she denies any side effect of the medication Patient had significant relief from the sacroiliac joint injections, commenting on greater than 90% relief. She would like to get these repeated again if she feels her pain is slowly starting to come back. We had a discussion regarding repeated steroid injections the patient understands she should raising on her injections as best that she can given the frequent doses of steroids can result in decreased bone health, increased blood sugar, and possible hypertension. Patient also inquired about possible SI joint ablation, I mentioned that we will try the sacroiliac joint injection again and see how we do with that. We can also consider ablationin the future. Physical Examinations : -Constitutiona : Cooperative , not in acute distress . -HEENT : nech : supple , no Lymphadenopathy , normal thyroid size . : eyes : no ptosis , no icterus, no photophobia . - neurologic : Cranial nerve II to XII intact , no focal neurological deffecit . -psychatric : alert , oriented X 3 , appropriate affect , intact judgment and insight . -Lymphatic : no Lymphadenopathy . - musculoskeltal : Lumber spine moter stegnth lower extremities ,thigh and legs 5/5 Right side , 5/5 Left side deep tendon reflexes : normal Knee Jerk , normal ankle Jerk lumber facet Loading Test =positive Right , positive Left Range of motion of the lumbar spine Flexion 30 degrees, extension 10 degrees strait leg raising test = positive at 45 degree Fabere test= positive Right , and positive LT . Sever tenderness over the Sacroiliac joint on the Right , and Left sides Gaenslen test= positive right ,and positive left . Seated flexion test= positive right ,and positive Left . Distraction test= positive bilaterally Sacroiliac compression test= positive bilaterally Assessment and plan= 1-lumbar spondylosis with lumbar facet arthropathy without myelopathy 2- bilaterally sacroiliitis 3-postlaminectomy pain syndrome lumbar. Repeat bilateral SIJ, consider SIJ ablation in the future. I have spent 23 minutes on review of the records, review of the imaging available, [id number] interaction with the patient, medication management, follow-up care coordination and record creation. PQRS Measure Charge Sheet Measure #130: Documentation of Current Meds in Medical Chart: Patient's medications documented in chart Measure #226: Tobacco Use: Screen & Cessation Intervention: Pt not a tobacco user Measure #111: Pneumonia Vaccination: Pneumococcal vaccine administered or previously received Measure #47: Advance Care Plan: Advance care planning discussed & documented, pt chose/unable to give Measure #412: Opioid Treatment Agreement: No documentation of signed opioid treatment agreement Measure #408: Opioid Therapy Follow-up Evaluation: Patient had NO f/u eval minimum every 3 months during opioid therapy Measure #317: Preventitive Care & Scrn High Bld Press & F/U: Normal BP documented, pt will f/u with PCP Measure #128: Body Mass Index (BMI) Screening & Follow-up: BMI documented ABOVE normal parameters - f/u documented Measure #131: Pain Assessment & Follow-up: Pain positive & plan documented, Follow-up scheduled Measure #431: Unhealthy Alcohol Use Preventative Care & Scrn: Patient not identified as an unhealthy alcohol user PQRS Narrative: Objective - Vital Signs Vital signs: Intake & Output 09/26/20 09/27/20 09/27/20 18:59 06:59 18:59 Weight 87.09 kg PQRS Measure Charge Sheet PQRS Narrative: Smoking Status Former smoker Pain Intensity [Left Anterior 5 Thigh] Pain Intensity [Right Buttock] 2 Scale Used Numeric (1 - 10) Hx Alcohol Use (MH) Yes: OCCASIONAL Home Medications: Ambulatory Orders Cyclobenzaprine [Flexeril] 10 mg PO HS PRN 07/29/17 Ezetimibe 10 mg PO DAILY 07/29/17 Hydrocodone/Acetaminophen [[place] 10-325] 1 tab PO Q6H PRN 07/29/17 Omeprazole [PriLOSEC] 20 mg PO DAILY PRN 07/29/17 Phenylephrine HCl [Sudafed PE] 10 mg PO HS PRN 07/29/17 Saliva Stimulant Agents Comb.3 [Biotene Moisturizing Mouth] 1 spray PO HS PRN 07/29/17 Cholecalciferol [Vitamin D3] 4,000 unit PO DAILY 10/10/17 methocarbamoL [Robaxin] 1,000 mg PO BID 12/20/17 Zolpidem Tartrate [Ambien] 10 mg PO HS PRN 01/06/18 Magnesium Oxide [Mag-Ox] 250 mg PO DAILY 01/22/19 Potassium Gluconate 99 mg PO DIRECTED 01/22/19 levETIRAcetam [Keppra] 750 mg PO Q12HR 12/31/19 Aspirin [Adult Low Dose Aspirin EC] 81 mg PO DAILY 05/16/20 Keanu Back & Body 1 tab PO DIRECTED PRN 05/16/20 Ashwagandha. 460 mg PO DAILY 05/31/20 Ginkgo Biloba [place] Extract [Ginkgo] 60 mg PO DAILY 05/31/20 Vitamin B Complex 1 each PO TUFR 05/31/20 ALPRAZolam [Xanax] 0.5 mg PO DAILY PRN 06/22/20 Acetaminophen [Tylenol Extra Strength] 1,000 mg PO DIRECTED PRN 06/22/20 [place]-3 Fatty Acids/Fish Oil [Fish Oil 1,000 mg Softgel] 1,400 mg PO DAILY 06/22/20 Xlear Nasal [place] 1 spray NASAL DIRECTED PRN 06/22/20 Lidocaine 5% Patch [Lidoderm] 1 patch TOPICAL DAILY PRN 07/13/20 Controlled Substance Measures - Controlled Substance Measures Is patient prescribed a controlled substance at discharge?: No
== END ==
LOC: PNWHC3 08:58
PROVIDERS: ATTEND Anesthesiology
DX: M47.816 Spondylosis without myelopathy or radiculopathy, lumbar region (principal); M46.1 Sacroiliitis, not elsewhere classified; M96.1 Postlaminectomy syndrome, not elsewhere classified; Z91.048 Other nonmedicinal substance allergy status; Z88.6 Allergy status to analgesic agent; Z87.891 Personal history of nicotine dependence
CPT/HCPCS: 99211

== ENCOUNTER 2020-10-18 09:17 | Day surgery (SDC) | payer MEDICARE, BC ==
[2020-10-17 12:06] VITALS: BMI 32.5
[2020-10-18 10:00] VITALS: RESP 20; TEMP 97.8
[2020-10-18] MEDS: LACTATED RINGERS 1,000 ML IV SCH ×2 (10:12→10:36)
[2020-10-18] MEDS ORDERED: ROPIVACAINE 5MG/ML 20ML VIAL ONE (10:40)
[2020-10-18] MEDS ORDERED: MIDAZOLAM 2 MG/2 ML VIAL ONE (10:40)
[2020-10-18] MEDS ORDERED: fentaNYL (PF) 50 MCG/ML 2 ML AMP ONE (10:40)
[2020-10-18] MEDS ORDERED: TRIAMCINOLONE ACETONIDE 40 MG/ML 1 ML VIAL ONE (10:40)
--- NOTE | 2020-10-18 10:50 | P.PCN ---
Date of Procedure: 10/18/20 Surgeon: Jesus Ramsey Pathology: none sent Condition: stable Disposition: PACU Description of Procedure: Preoperative diagnoses= bilateral sacroiliac joint dysfunction and sacroiliitis , failed back surgery syndrome Postoperative diagnoses= same as preoperative diagnosis. Procedure= bilateral sacroiliac joint steroid injection under fluoroscopic guidance. Anesthesia= local anesthesia with lidocaine 1% and IV moderate conscious sedation with fentanyl and Versed Estimated blood loss=minimal. Procedure indication= the patient had a history of severe chronic low back pain, diagnosed with sacroiliitis and lumbar sacral facet arthropathy unresponsive to conservative treatment. Procedure description= the patient was seen and identified in the preoperative h olding area, risks and benefits and alternative of the procedure and possible complications discussed with the patient, patient signed the consent. an IV was started, and vital signs were monitored and were stable throughout the procedure, patient was placed in the prone position or table and the lumbosacral area was prepped and draped with a sterile fashion, vital signs were closely monitored during the procedure.The sacroiliac joint was identified on the AP view of fluoroscopy then the C-arm was tilted to the contralateral oblique position to superimpose the anterior and posterior joint lines on each other and to have a unified joint line with the target point at the inferior one third of this line. I used 22-gauge 3-1/2 inch [place] spinal needle for this procedure and after getting into the sacroiliac joint I injected 20 mg of Kenalog +2 MLS of Ropivacaine 0.5%. Patient tolerated the procedure well without any complication, the procedure was repeated on the opposite side in the same manner. Of note the patient has hardware extending from L4 to S1 on the right side of the spine only The patient returned to supine position after the back was cleaned and a Band- Aid applied, the patient transported to recovery room in stable condition and he was monitored for 30 minutes before she was discharged home in stable condition . patient will follow up with the pain clinic in a few weeks. A copy of the needle placement was saved to the C-arm machine.
[2020-10-18] MEDS ORDERED: IV FLUID CONTINUATION 900 ML IV ONE (10:57)
[2020-10-18 11:25] VITALS: BP 128/70; PULSE 71
--- NOTE | 2020-10-18 17:02 | FL ---
Fluoroscopy HISTORY: Pain 8 seconds fluoroscopy time supplied to the referring clinician. 2 intraoperative C-arm images docume nt the procedure. See dictated report from anesthesia.
== END 2020-10-18 11:25 | disposition home or self-care (01) ==
LOC: ORPAIN 09:17
PROVIDERS: ATTEND Anesthesiology
DX: G89.29 Other chronic pain (principal); M46.1 Sacroiliitis, not elsewhere classified; M53.3 Sacrococcygeal disorders, not elsewhere classified; M96.1 Postlaminectomy syndrome, not elsewhere classified; Z88.6 Allergy status to analgesic agent
CPT/HCPCS: J2250; J3301; J3010; J2795; G0260

== ENCOUNTER → 2020-11-21 | Outpatient (CLI) | payer MEDICARE, BC ==
[2020-11-21 10:18] VITALS: BP 148/88; PULSE 85; RESP 18; TEMP 98.1
--- NOTE | 2020-11-21 10:25 | P.PN ---
Subjective Progress Note Date: 11/21/20 This is follow up visit for this 65 years old female with history of severe and chronic low back pain, she is diagnosed with lumbar spondylosis with lumbar facet arthropathy ,and sacroiliitis ,sacroiliac joint dysfunction, previously would have done bilateral sacroiliac joint steroid injection, with excellent pain relief for a few weeks after each injection, previously we have done RFA of the sacroiliac joints , but her insurance does not approve disservice anymore , so we have done RFA of the medial branch lumbar area, currently she is complaining of severe pain in the buttock bilaterally, , she denies any fever or night sweats which denies any change in bowel movements or urination, she continued to use [place] 10/325 every 8 hours when necessary she'll get her prescription refilled from her primary care, she denies any side effect of the medication Physical Examinations : -Constitutiona : Cooperative , not in acute distress . -HEENT : nech : supple , no Lymphadenopathy , normal thyroid size . : eyes : no ptosis , no icterus, no photophobia . - neurologic : Cranial nerve II to XII intact , no focal neurological deffecit . -psychatric : alert , oriented X 3 , appropriate affect , intact judgment and insight . -Lymphatic : no Lymphadenopathy . - musculoskeltal : Lumber spine moter stegnth lower extremities ,thigh and legs 5/5 Right side , 5/5 Left side deep tendon reflexes : normal Knee Jerk , normal ankle Jerk lumber facet Loading Test =positive Right , positive Left Range of motion of the lumbar spine Flexion 30 degrees, extension 10 degrees strait leg raising test = positive at 45 degree Fabere test= positive Right , and positive LT . Sever tenderness over the Sacroiliac joint on the Right , and Left sides Gaenslen test= positive right ,and positive left . Seated flexion test= positive right ,and positive Left . Distraction test= positive bilaterally Sacroiliac compression test= positive bilaterally Assessment and plan= 1-lumbar spondylosis with lumbar facet arthropathy without myelopathy 2- bilaterally sacroiliitis 3-postlaminectomy pain syndrome lumbar. Patient had good pain relief after bilateral sacroiliac joint steroid injection only for short-term for a few weeks after each injection Patient will follow up with Dr. Rodriguez neurosurgeon for evaluation Patient could benefit from carrying gel 1% to be applied to the painful area, buttock and low back twice daily Time with Patient: Less than 30 PQRS Measure Charge Sheet Measure #130: Documentation of Current Meds in Medical Chart: Patient's medications documented in chart Measure #226: Tobacco Use: Screen & Cessation Intervention: Pt not a tobacco user Measure #111: Pneumonia Vaccination: Pneumococcal vaccine administered or previously received Measure #47: Advance Care Plan: Advance care planning discussed & documented, pt chose/unable to give Measure #412: Opioid Treatment Agreement: No documentation of signed opioid treatment agreement Measure #408: Opioid Therapy Follow-up Evaluation: Patient had NO f/u eval minimum every 3 months during opioid therapy Measure #317: Preventitive Care & Scrn High Bld Press & F/U: Normal BP documented, pt will f/u with PCP Measure #128: Body Mass Index (BMI) Screening & Follow-up: BMI documented ABOVE normal parameters - f/u documented Measure #131: Pain Assessment & Follow-up: Pain positive & plan documented, Follow-up scheduled Measure #431: Unhealthy Alcohol Use Preventative Care & Scrn: Patient not identified as an unhealthy alcohol user PQRS Narrative: Objective - Vital Signs Vital signs: Vital Signs Temp 98.1 F 11/21/20 10:13 Pulse 85 11/21/20 10:13 Resp 18 11/21/20 10:13 BP 148/88 11/21/20 10:13 Pulse Ox 97 11/21/20 10:13
== END ==
LOC: PNWHC3 09:55
PROVIDERS: ATTEND Specialist
DX: M47.816 Spondylosis without myelopathy or radiculopathy, lumbar region (principal); M46.1 Sacroiliitis, not elsewhere classified; M96.1 Postlaminectomy syndrome, not elsewhere classified; Z87.891 Personal history of nicotine dependence; Z91.048 Other nonmedicinal substance allergy status
CPT/HCPCS: 99211

== ENCOUNTER 2021-03-03 03:03 | Emergency (ER) | payer MEDICARE, BC ==
[2021-03-03] MEDS ORDERED: SODIUM CHLORIDE 0.9% 1,000 ML IV STA (03:40)
[2021-03-03] MEDS ORDERED: HYDROmorphone 1 MG/ML 1 ML SYRINGE IVP STA ×2 (03:41→06:06)
[2021-03-03] MEDS ORDERED: diphenhydrAMINE 50 MG/ML 1 ML VIAL IVP STA (03:41)
--- NOTE | 2021-03-03 03:42 | ED ---
Recheck HPI - General Chief Complaint: Back Pain/Injury Stated Complaint: Back pain Time Seen by Provider: 03/03/21 03:05 Source: EMS, RN notes reviewed, old records reviewed Mode of arrival: EMS Limitations: no limitations - History of Present Illness Initial Comments: This is a 66-year-old female to the emergency department today. Patient Dese for evaluation of back pain severe back pain acute on chronic back pain with recent back surgery. She is having decreased urinary output with is admitted decreased appetite. No bowel movement for past few days. Patient for the last day has been having difficulty with evaluation getting up out of chairs embedding go to the bathroom. Her pain is severe and it feels more severe than it has been in the past MD Complaint: medication refill request -: days(s) Returns Today for: persistent/worsening pain related to initial visit Symptoms Since Prior Visit: worsening pain Associated Symptoms: none Treatments Prior to Arrival: Given Pain Meds on - Related Data Home Medications Medication Instructions Recorded Confirmed Cyclobenzaprine [Flexeril] 10 mg PO HS PRN 07/29/17 11/15/20 Ezetimibe 10 mg PO DAILY 07/29/17 11/15/20 Hydrocodone/Acetaminophen [[place] 1 tab PO Q6H PRN 07/29/17 11/15/20 10-325] Omeprazole [PriLOSEC] 20 mg PO DAILY PRN 07/29/17 11/15/20 Phenylephrine HCl [Sudafed PE] 10 mg PO HS PRN 07/29/17 11/15/20 Saliva Stimulant Agents Comb.3 1 spray PO HS PRN 07/29/17 11/15/20 [Biotene Moisturizing Mouth] Cholecalciferol [Vitamin D3] 4,000 unit PO DAILY 10/10/17 11/15/20 methocarbamoL [Robaxin] 1,000 mg PO BID 12/20/17 11/15/20 Zolpidem Tartrate [Ambien] 10 mg PO HS PRN 01/06/18 11/15/20 Magnesium Oxide [Mag-Ox] 250 mg PO DAILY 01/22/19 11/15/20 Potassium Gluconate [Potassium 99 mg PO DIRECTED 01/22/19 11/15/20 Gluconate ER] levETIRAcetam [Keppra] 750 mg PO Q12HR 12/31/19 11/15/20 Aspirin [Adult Low Dose Aspirin EC] 81 mg PO DAILY 05/16/20 11/15/20 Keanu Back & Body 1 tab PO Q6H PRN 05/16/20 11/15/20 Reynold. 460 mg PO DAILY 05/31/20 11/15/20 Ginkgo Biloba [place] Extract [Ginkgo] 60 mg PO DAILY 05/31/20 11/15/20 Vitamin B Complex 1 each PO TUFR 05/31/20 11/15/20 ALPRAZolam [Xanax] 0.5 mg PO DAILY PRN 06/22/20 11/15/20 Acetaminophen [Tylenol Extra 1,000 mg PO DIRECTED PRN 06/22/20 11/15/20 Strength] [place]-3 Fatty Acids/Fish Oil [Fish 1,400 mg PO DAILY 06/22/20 11/15/20 Oil 1,000 mg Softgel] Xlear Nasal [place] 1 spray EA NOSTRIL BID 06/22/20 11/15/20 Lidocaine 5% Patch [Lidoderm] 1 patch TOPICAL DAILY PRN 07/13/20 11/15/20 lamoTRIgine [LaMICtal] 25 mg PO BID 11/15/20 11/15/20 Diclofenac Sodium [Voltaren 20 gm TOPICAL DAILY PRN 11/21/20 11/21/20 Arthritis Pain 1% Gel] Allergies Allergy/AdvReac Type Severity Reaction Status Date / Time adhesive tape AdvReac Intermediate SEVERE Verified 03/03/21 03:16 IRRITATION, SKIN ASHER AND TURNS RED ibuprofen [From Motrin] AdvReac Intermediate SEVERE Verified 03/03/21 03:16 UPSET STOMACH Review of Systems ROS Statement: Those systems with pertinent positive or pertinent negative responses have been documented in the HPI. ROS Other: All systems not noted in ROS Statement are negative. Past Medical History Past Medical History: Asthma, Diabetes Mellitus, GERD/Reflux, Hyperlipidemia, Memory Impairment, Musculoskeletal Disorder, Osteoarthritis (OA), Seizure Disorder, Sleep Apnea/CPAP/BIPAP, Thyroid Disorder Additional Past Medical History / Comment(s): CHRONIC BACK PAIN; MILD NEUROPATHY; OSTEOPOROSIS; CASANOVA'S NEUROMA; occ IBS, degenerative discs, spinal stenosis, past diabetes(oral rx) was resolved after nodule removed from thryoid. Dry Eyes. HYPERCALCEMIA, partial complex seizures-blank stares. States unknown virus may 2019 with fever & severe headache-she needed physical therapy afterwards and seizures started., states last seizure was "months ago". lump on rt base base of finger History of Any Multi-Drug Resistant Organisms: None Reported Past Surgical History: Back Surgery, Cholecystectomy, Hysterectomy, Orthopedic Surgery Additional Past Surgical History / Comment(s): CERVICAL FUSION C6,C7,T1., LUMBAR FUSION WITH METAL PLATE L4,L5,S1, ANTERIOR INTERBODY LUMBAR LAMINECTOMY. CRUSHING RIGHT HAND INJURY RECONSTRUCTION. SINUS SURGERY. PARTIAL THYROIDECTOMY AND PARTIAL PARATHYROIDECTOMY. PAIN CLINIC PROCEDURE. bone spur removed from ring finger rt hand, nail bed tissue removed from small finger rt hand Past Anesthesia/Blood Transfusion Reactions: Postoperative Nausea & Vomiting (PONV) Additional Past Anesthesia/Blood Transfusion Reaction / Comment(s): PONV X1 occasion. Past Psychological History: Anxiety, Depression Smoking Status: Former smoker Past Alcohol Use History: Occasional Past Drug Use History: None Reported - Past Family History Mother Family Medical History: No Reported History Sister(s) Family Medical History: Cancer Additional Family Medical History / Comment(s): 2 SISTERS- LUNG CANCER. General Exam Limitations: no limitations General appearance: alert, in no apparent distress Head exam: Present: atraumatic, normocephalic, normal inspection Eye exam: Present: normal appearance, PERRL, EOMI. Absent: scleral icterus, conjunctival injection, periorbital swelling ENT exam: Present: normal exam, mucous membranes moist Neck exam: Present: normal inspection. Absent: tenderness, meningismus, lympha denopathy Respiratory exam: Present: normal lung sounds bilaterally. Absent: respiratory distress, wheezes, rales, rhonchi, stridor Cardiovascular Exam: Present: regular rate, normal rhythm, normal heart sounds. Absent: systolic murmur, diastolic murmur, rubs, gallop, clicks GI/Abdominal exam: Present: soft, normal bowel sounds. Absent: distended, tenderness, guarding, rebound, rigid Extremities exam: Present: normal inspection, full ROM, normal capillary refill. Absent: tenderness, pedal edema, joint swelling, calf tenderness Back exam: Present: normal inspection Neurological exam: Present: alert, oriented X3, CN II-XII intact Psychiatric exam: Present: normal affect, normal mood Skin exam: Present: warm, dry, intact, normal color. Absent: rash Course Vital Signs 03/03/21 03/03/21 03/03/21 03:09 04:44 06:00 Temperature 99.5 F 97.8 F Pulse Rate 95 89 83 Respiratory 18 18 18 Rate Blood Pressure 174/94 159/88 162/91 O2 Sat by Pulse 98 95 98 Oximetry - Reevaluation(s) Reevaluation #1: 03/03/21 03:42 Record is reviewed Medical Decision Making - Lab Data Result diagrams: 03/03/21 04:28 03/03/21 04:28 Lab Results 03/03/21 03/03/21 03/03/21 Range/Units 04:28 04:28 04:28 WBC 9.7 (3.8-10.6) k/uL RBC 4.19 (3.80-5.40) m/uL Hgb 13.0 (11.4-16.0) gm/dL Hct 39.9 (34.0-46.0) % MCV 95.1 (80.0-100.0) fL MCH 31.1 (25.0-35.0) pg MCHC 32.6 (31.0-37.0) g/dL RDW 12.3 (11.5-15.5) % Plt Count 198 (150-450) k/uL MPV 7.8 Neutrophils % 73 % Lymphocytes % 17 % Monocytes % 7 % Eosinophils % 2 % Basophils % 0 % Neutrophils # 7.1 (1.3-7.7) k/uL Lymphocytes # 1.6 (1.0-4.8) k/uL Monocytes # 0.7 (0-1.0) k/uL Eosinophils # 0.2 (0-0.7) k/uL Basophils # 0.0 (0-0.2) k/uL Sodium 136 L (137-145) mmol/L Potassium 3.8 (3.5-5.1) mmol/L Chloride 103 (98-107) mmol/L Carbon Dioxide 29 (22-30) mmol/L Anion Gap 4 mmol/L BUN 11 (7-17) mg/dL Creatinine 0.46 L (0.52-1.04) mg/dL Est GFR (CKD-EPI)AfAm >90 (>60 ml/min/1.73 sqM) Est GFR (CKD-EPI)NonAf >90 (>60 ml/min/1.73 sqM) Glucose 127 H (74-99) mg/dL Plasma Lactic Acid [place] 0.9 (0.7-2.0) mmol/L Calcium 9.1 (8.4-10.2) mg/dL Total Bilirubin 0.5 (0.2-1.3) mg/dL AST 38 H (14-36) U/L ALT 48 H (4-34) U/L Alkaline Phosphatase 51 (38-126) U/L Total Protein 6.3 (6.3-8.2) g/dL Albumin 3.5 (3.5-5.0) g/dL Amylase 33 (30-110) U/L Lipase 39 (23-300) U/L Urine Color Urine Appearance (Clear) Urine pH (5.0-8.0) Ur Specific [place] (1.001-1.035) Urine Protein (Negative) Urine Glucose (UA) (Negative) Urine Ketones (Negative) Urine Blood (Negative) Urine Nitrite (Negative) Urine Bilirubin (Negative) Urine Urobilinogen (<2.0) mg/dL Ur Leukocyte Esterase (Negative) Urine RBC (0-5) /hpf Urine WBC (0-5) /hpf Urine Mucus (None) /hpf 03/03/21 Range/Units 06:22 WBC (3.8-10.6) k/uL RBC (3.80-5.40) m/uL Hgb (11.4-16.0) gm/dL Hct (34.0-46.0) % MCV (80.0-100.0) fL MCH (25.0-35.0) pg MCHC (31.0-37.0) g/dL RDW (11.5-15.5) % Plt Count (150-450) k/uL MPV Neutrophils % % Lymphocytes % % Monocytes % % Eosinophils % % Basophils % % Neutrophils # (1.3-7.7) k/uL Lymphocytes # (1.0-4.8) k/uL Monocytes # (0-1.0) k/uL Eosinophils # (0-0.7) k/uL Basophils # (0-0.2) k/uL Sodium (137-145) mmol/L Potassium (3.5-5.1) mmol/L Chloride (98-107) mmol/L Carbon Dioxide (22-30) mmol/L Anion Gap mmol/L BUN (7-17) mg/dL Creatinine (0.52-1.04) mg/dL Est GFR (CKD-EPI)AfAm (>60 ml/min/1.73 sqM) Est GFR (CKD-EPI)NonAf (>60 ml/min/1.73 sqM) Glucose (74-99) mg/dL Plasma Lactic Acid [place] (0.7-2.0) mmol/L Calcium (8.4-10.2) mg/dL Total Bilirubin (0.2-1.3) mg/dL AST (14-36) U/L ALT (4-34) U/L Alkaline Phosphatase (38-126) U/L Total Protein (6.3-8.2) g/dL Albumin (3.5-5.0) g/dL Amylase (30-110) U/L Lipase (23-300) U/L Urine Color Light Yellow Urine Appearance Clear (Clear) Urine pH 6.5 (5.0-8.0) Ur Specific [place] 1.016 (1.001-1.035) Urine Protein Negative (Negative) Urine Glucose (UA) Negative (Negative) Urine Ketones Negative (Negative) Urine Blood Trace H (Negative) Urine Nitrite Negative (Negative) Urine Bilirubin Negative (Negative) Urine Urobilinogen <2.0 (<2.0) mg/dL Ur Leukocyte Esterase Negative (Negative) Urine RBC 2 (0-5) /hpf Urine WBC <1 (0-5) /hpf Urine Mucus Rare H (None) /hpf Disposition Clinical Impression: Urinary retention, Postoperative pain Disposition: HOME SELF-CARE Condition: Good Instructions (If sedation given, give patient instructions): Acute Urinary Retention in Women (ED) Is patient prescribed a controlled substance at d/c from ED?: No Referrals: Lenard Mchugh MD [Primary Care Provider] - 1-2 days
[2021-03-03 04:50] LABS: Basophils % (A) 0 %; Eosinophils # (A) 0.2 k/uL (0-0.7); Eosinophils % (A) 2 %; HCT 39.9 % (34.0-46.0); Lymphocytes # (A) 1.6 k/uL (1.0-4.8); Lymphocytes % (A) 17 %; MCH 31.1 pg (25.0-35.0); MCHC 32.6 g/dL (31.0-37.0); MCV 95.1 fL (80.0-100.0); Mean Platelet Volume 7.8; Monocytes # (A) 0.7 k/uL (0-1.0); Monocytes % (A) 7 %; Neutrophils # (A) 7.1 k/uL (1.3-7.7); Neutrophils % (A) 73 %; Platelet Count 198 k/uL (150-450); RBC 4.19 m/uL (3.80-5.40); RDW 12.3 % (11.5-15.5); WBC 9.7 k/uL (3.8-10.6)
[2021-03-03 05:02] LABS: ALT 48 U/L (4-34); AST 38 U/L (14-36); African American GFR (CKD) >90 (>60 ml/min/1.73 sqM); Albumin 3.5 g/dL (3.5-5.0); Alkaline Phosphatase 51 U/L (38-126); Amylase 33 U/L (30-110); Anion Gap 4 mmol/L; Blood Urea Nitrogen 11 mg/dL (7-17); Calcium 9.1 mg/dL (8.4-10.2); Carbon Dioxide 29 mmol/L (22-30); Chloride 103 mmol/L (98-107); Glucose 127 mg/dL (74-99); Lipase 39 U/L (23-300); Non-African American GFR(CKD) >90 (>60 ml/min/1.73 sqM); Potassium 3.8 mmol/L (3.5-5.1); Sodium 136 mmol/L (137-145); Total Bilirubin 0.5 mg/dL (0.2-1.3); Total Protein 6.3 g/dL (6.3-8.2)
[2021-03-03 06:01] VITALS: PULSE 83; TEMP 97.8
--- NOTE | 2021-03-03 06:21 | CT ---
EXAMINATION TYPE: CT abdomen pelvis w con DATE OF EXAM: 03/03/2021 COMPARISON: 09/03/2012 HISTORY: lower back pain from surgery CT DLP: 2565.50 mGycm Automated exposure control for dose reduction was used. CONTRAST: Performed with IV Contrast, patient injected with 100 mL of Isovue 300. There is subsegmental atelectasis at the lung bases. Heart size is normal. There is no pericardial ef fusion. There is small hiatal hernia. Stomach is intact. There are clips from cholecystectomy. Liver and sple en are intact. The bile ducts are not dilated. There is no pancreatic mass. There is no adrenal mass. Kidneys show satisfactory contrast opacification. There is no hydronephrosi s. Ureters are not dilated. Bladder distends smoothly. There is Narayan catheter in the urinary bladder . There is no inguinal hernia. There is no free fluid in the pelvis. Appendix not seen. No sign of th ickened appendix. There is no mesenteric edema. There is no ascites or free air. There is no bowel obstruction. The lumbar vertebra have normal alignment. There is posterior fusion surgery with rods and screws fro m L4 to S1. There is no compression fracture. IMPRESSION: Subsegmental atelectasis at the lung bases. No acute abnormality within the abdomen pelvis.
[2021-03-03 06:37] LABS: Appearance,Urine Clear (Clear); Bilirubin,Urine Negative (Negative); Blood,Urine Trace (Negative); Color,Urine Light Yellow; Glucose,Urine (UA) Negative (Negative); Ketones,Urine Negative (Negative); Leukocyte Esterase,Urine Negative (Negative); Mucus,Urine Rare /hpf; Nitrite,Urine Negative (Negative); PH, Urine 6.5 (5.0-8.0); Protein,Urine Negative (Negative); RBC,Urine 2 /hpf (0-5); Specific Gravity,Urine 1.016 (1.001-1.035); Urobilinogen,Urine <2.0 mg/dL (<2.0); WBC,Urine <1 /hpf (0-5)
[2021-03-03 07:53] VITALS: BP 157/79; RESP 87
== END 2021-03-03 08:28 | disposition home or self-care (01) ==
LOC: EC 03:03
DX: R33.9 Retention of urine, unspecified (principal); G89.18 Other acute postprocedural pain; E11.40 Type 2 diabetes mellitus with diabetic neuropathy, unspecified; E78.5 Hyperlipidemia, unspecified; K21.9 Gastro-esophageal reflux disease without esophagitis; J45.909 Unspecified asthma, uncomplicated; G40.909 Epilepsy, unspecified, not intractable, without status epilepticus; M19.90 Unspecified osteoarthritis, unspecified site; F32.A Depression, unspecified; F41.9 Anxiety disorder, unspecified; Z87.891 Personal history of nicotine dependence; Z79.82 Long term (current) use of aspirin; Z79.899 Other long term (current) drug therapy
CPT/HCPCS: 36415; 80053; 82150; 83605; 83690; 85025; 81001; 74177; 51702; 99284; 96374; 96375; 96376; 96361 ×3; J1200; J1170; Q9967

== ENCOUNTER → 2022-02-13 | Outpatient (CLI) | payer MEDICARE ==
[2022-02-13 23:29] LABS: Basophils # (A) 0.04 X 10*3/uL (0.00-0.10); Basophils % (A) 0.5 %; Eosinophils # (A) 0.13 X 10*3/uL (0.04-0.35); Eosinophils % (A) 1.5 %; HCT 43.8 % (37.2-46.3); HGB 14.1 g/dL (12.0-15.0); Immature Grans, Automated 0.2 %; Lymphocytes # (A) 2.14 X 10*3/uL (0.90-5.00); Lymphocytes % (A) 25.4 %; MCH 31.1 pg (27.0-32.0); MCHC 32.2 g/dL (32.0-37.0); MCV 96.5 fL (80.0-97.0); Mean Platelet Volume 10.8 fL (9.5-12.2); Monocytes # (A) 0.59 X 10*3/uL (0.20-1.00); NRBC Per 100 WBC 0 /100 WBCS (0.0-0.0); Neutrophils # (A) 5.52 X 10*3/uL (1.80-7.70); Neutrophils % (A) 65.4 %; Platelet Count 252 X 10*3/uL (140-440); RBC 4.54 X 10*6/uL (4.10-5.20); RDW 13.3 % (11.5-14.5); WBC 8.44 X 10*3/uL (4.50-10.00)
[2022-02-13 23:34] LABS: African American GFR (CKD) 87.8 (60.0-200.0); Anion Gap 9.5 mmol/L (10.00-18.00); Blood Urea Nitrogen 16.2 mg/dL (9.0-27.0); Carbon Dioxide 29.5 mmol/L (20.0-27.5); Non-African American GFR(CKD) 75.8 (60.0-200.0); Potassium 3.9 mmol/L (3.5-5.5)
== END | disposition home or self-care (01) ==
LOC: LABPAT 15:32
PROVIDERS: ATTEND Obstetrics & Gynecology
DX: Z01.818 Encounter for other preprocedural examination (principal)
CPT/HCPCS: 36415; 80051; 82565; 84520; 85025; 87086; 93005

== ENCOUNTER 2022-02-20 07:28 | Day surgery (SDC) | payer BC, MEDICARE ==
[2022-02-15 15:16] VITALS: BMI 33.1
[~2022-02-20 07:28] MED LIST changes: +DEXAMETHASONE SOD PHOSPHATE 4 MG/ML 1 ML VIAL IV ONE; +HYDROmorphone 0.5 MG/0.5 ML SYRINGE IVP PRN; -LACTATED RINGERS 1,000 ML IV SCH; +LIDOCAINE 1% (10MG/ML) FOR IV START INTRADERMA PRN; +MIDAZOLAM 2 MG/2 ML VIAL IV PRN; +ONDANSETRON 4 MG/2 ML VIAL IVP ONE
[2022-02-20] MEDS ORDERED: ONDANSETRON 4 MG/2 ML VIAL ONE (07:53)
[2022-02-20] MEDS ORDERED: ONDANSETRON 4 MG/2 ML VIAL IVP ONE (08:40)
[2022-02-20] MEDS: LACTATED RINGERS 1,000 ML IV SCH ×5 (08:40→22:31)
[2022-02-20] MEDS ORDERED: DEXAMETHASONE SOD PHOSPHATE 4 MG/ML 1 ML VIAL IVP ONE (08:41)
--- NOTE | 2022-02-20 08:41 | HP ---
HISTORY AND PHYSICAL DATE OF SURGERY: February 20, 2022. HISTORY OF PRESENT ILLNESS: The patient is a 67-year-old 1, para 1-0-0-1 woman, who presents on referral from Dr. Mchugh regarding a possible rectocele. She complains of relatively recent onset of pelvic pressure, was found with posterior vaginal prolapse by her primary care physician. She had hysterectomy done years ago for cervical precancers. Symptoms began approximately a month ago with primarily description of pressure. She does have some difficulty moving bowels, but has not required splinting in order to do so. She is no longer at this time sexually active. PAST MEDICAL HISTORY: Significant for history of anxiety and depression, degenerative disk disease, hypercalcemia, irritable bowel syndrome, sleep apnea, and seizure disorder. PAST SURGICAL HISTORY: Significant for back surgery, cholecystectomy, deviated septum repair, hand surgery, hysterectomy, sinus surgery, and thyroidectomy. There were no reported anesthetic concerns. OBSTETRICAL HISTORY: 1, para 1-0-0-1 with 1 term vaginal delivery without complications. GYNECOLOGIC HISTORY: Unremarkable with no history of any infections to include STDs. She does have remote history of Chlamydia treated many many years ago. SOCIAL HISTORY: The patient is and retired. She is a current nonsmoker, but does have a history of 1 pack per day in the past. There are no other significant concerns from a social perspective. FAMILY HISTORY: Noncontributory. REVIEW OF SYSTEMS: Confined to history of present illness. PHYSICAL EXAMINATION: VITAL SIGNS: Stable, and the patient is afebrile. GENERAL: This is a well-developed, well-nourished white female, in no acute distress. HEART: Has regular rhythm and rate without murmur. LUNGS: Clear to auscultation bilaterally in all hope. ABDOMEN: Nondistended. Has normoactive bowel sounds. Soft and nontender without any palpable masses, hepatosplenomegaly, or hernias. EXTREMITIES: Without any cyanosis, clubbing, or edema. Nontender to palpation bilaterally. PELVIC: Demonstrates normal external genitalia and BUS with normal vaginal mucosa and apex as the patient has had a hysterectomy. She does have a grade 3 rectocele with a possible small superior enterocele. The bladder appears to be well supported. ASSESSMENT AND PLAN: Symptomatic rectocele: We did discuss options for treatment, and the patient has chosen surgical repair. We plan posterior colporrhaphy with the possibility of anterior repair should it be noted under anesthesia. The risks and complications have been discussed at length including the risks for bleeding, bleeding requiring transfusion, infection, and injury to local structures, which primarily include the rectum. She has understood all this and has agreed to proceed. She was to pre-treat with estrogen cream for 2 weeks prior to surgery. She has additionally undergone preoperative medical clearance by her primary care doctor. MMBALJEET / IJN: [id number] /
[2022-02-20] MEDS ORDERED: VASOPRESSIN 20 UNIT/ML 1 ML VIAL SQ ONE ×2 (09:23→09:51)
[2022-02-20] MEDS ORDERED: MIDAZOLAM 2 MG/2 ML VIAL ONE (09:25)
[2022-02-20] MEDS ORDERED: fentaNYL (PF) 50 MCG/ML 2 ML AMP ONE (09:25)
[2022-02-20] MEDS ORDERED: KETOROLAC 15 MG/ML 1 ML VIAL ONE (09:25)
[2022-02-20] MEDS ORDERED: LIDOCAINE 2% INJ 20 MG/ML (2 ML VIAL) ONE (09:25)
[2022-02-20] MEDS ORDERED: PROPOFOL 10 MG/ML 20 ML VIAL IV ONE (09:25)
[2022-02-20] MEDS ORDERED: BACITRACIN ZINC 500 UNIT/GM OINT 28.4 GM TUBE TOPICAL ONE ×2 (09:36→10:15)
[2022-02-20] MEDS ORDERED: ONDANSETRON 4 MG/2 ML VIAL IVP PRN (10:27)
[2022-02-20] MEDS ORDERED: METOCLOPRAMIDE 5 MG/ML 2 ML VIAL IVP PRN (10:27)
[2022-02-20] MEDS ORDERED: Acetaminophen-Codeine 300-30mg TAB PO PRN (10:27)
[2022-02-20] MEDS ORDERED: SIMETHICONE 80 MG CHEWABLE PO PRN (10:27)
--- NOTE | 2022-02-20 10:44 | P.OP ---
Date of Procedure: 02/20/22 Preoperative Diagnosis: #1. symptomatically rectocele Postoperative Diagnosis: Same Procedure(s) Performed: #1. Posterior colporrhaphy Anesthesia: other (Gen. by LMA) Surgeon: Mane Crowley (carmelita) Equity Sales Assistant #1: Mary Beth Bueno Estimated Blood Loss (ml): 20 IV fluids (ml): 600 Urine output (ml): 300 Pathology: none sent Condition: stable Disposition: PACU Operative Findings: Under anesthesia, physical exam findings were as noted in the office with a high rectocele with possible superior enterocele. The bladder was well suspended and the perineum was well supported as well. Description of Procedure: The patient was prepped and draped in usual fashion after general anesthesia was administered by the anesthesiologist. The bladder was catheterized approximately 300 mL of clear jaqui urine. Allis clamps were placed at the hymeneal ring at approximately 5:00 and 7:00 and a triangle wedge of skin removed over the perineal body with a scalpel. The intended line of dissection of the rectovaginal mucosa was infused with diluted vasopressin solution. It was then undermined with Metzenbaum scissors in the midline and divided with Allis clamps placed along the margins on each side. Once the apex of the repair been reached, sharp and blunt dissection was carried out to dissect the overlying mucosa from the underlying fascial tissues. Once this was carried out adequately bilaterally, a Ayah plication stitches were placed from the apex of the dissection using 2-0 PDS to the vaginal opening. The intervening redundant mucosa was trimmed and discarded. The vaginal incision was closed with a running locking stitch of 2-0 Vicryl from apex to vaginal opening with the perineorrhaphy repair in standard fashion. Prior to closing, any small points of bleeding were made hemostatic with Bovie. The vagina was then packed with one-inch iodophor gauze covered with bacitracin ointment. Assessment a blood loss for the case approximate 200 mL. There were no complications. All sponge, instrument, needle counts were correct. Prior to placement of the vaginal packing, a Narayan catheter was placed demonstrating clear jaqui urine.
[2022-02-20] MEDS: Acetaminophen-Codeine 300-30mg TAB PO PRN ×2 (14:22→22:27)
[2022-02-20] MEDS: KETOROLAC 15 MG/ML 1 ML VIAL IVP PRN (18:56)
[2022-02-20] MEDS: SENNOSIDES-DOCUSATE SODIUM 1 EACH TAB PO SCH (22:27)
[2022-02-21] MEDS ORDERED: diphenhydrAMINE 50 MG/ML 1 ML VIAL IVP PRN (01:53)
[2022-02-21 02:04] VITALS: RESP 16
[2022-02-21] MEDS: KETOROLAC 15 MG/ML 1 ML VIAL IVP PRN (02:07)
[2022-02-21 05:31] LABS: Basophils % (A) 0 %; Eosinophils % (A) 0 %; HCT 38.7 % (34.0-46.0); HGB 12.6 gm/dL (11.4-16.0); Lymphocytes % (A) 9 %; MCH 30.9 pg (25.0-35.0); MCHC 32.6 g/dL (31.0-37.0); MCV 94.6 fL (80.0-100.0); Mean Platelet Volume 8.1; Monocytes # (A) 0.6 k/uL (0-1.0); Monocytes % (A) 5 %; Neutrophils # (A) 9.3 k/uL (1.3-7.7); Neutrophils % (A) 84 %; Platelet Count 218 k/uL (150-450); RBC 4.09 m/uL (3.80-5.40); RDW 13.1 % (11.5-15.5); WBC 11.1 k/uL (3.8-10.6)
[2022-02-21] MEDS: LACTATED RINGERS 1,000 ML IV SCH (06:27)
[2022-02-21] MEDS: SENNOSIDES-DOCUSATE SODIUM 1 EACH TAB PO SCH (07:55)
--- NOTE | 2022-02-21 08:14 | P.DS ---
Providers Expected date of discharge: 02/21/22 Attending physician: Mane Crowley Primary care physician: Lenard Mchugh - Discharge Diagnosis(es) (1) Rectocele Current Visit: Yes Status: Acute Hospital Course: the patient is a 67-year-old white female who presented the office on referral oh with findings of a rectocele. Examination before out a grade 2-3 symptomatic rectocele which was relatively high in the vagina. We discussed options for treatment and she opted to proceed with surgical repair. She was taken the operating room where she underwent posterior colporrhaphy and an incompetent fashion. Her postoperative course was unremarkable with vital signs remaining stable and her temperature was afebrile throughout. She was tolerating regular diet by the afternoon of day of surgery. She had the vaginal packing and Narayan catheter removed on the morning of postoperative day #1 and, after voiding adequately, was deemed stable for discharge. She was discharged home to follow- up in the office in 2 weeks for recheck in 6 weeks routinely. Discharge instructions included calling for any significantly increased bleeding or significant discharge, fever, pain, GI issues, or any also concerned her. She was additionally and more importantly instructed to have nothing in the vagina for at least 6 weeks time and to abstain from any heavy lifting over the same period of time. She understood her instructions and agrees to follow up as noted above. Discharge medications included only home medications as well as [id number] analgesic pain medications. Discharge hemoglobin and hematocrit were stable from admission. Procedures: #1. Posterior colporrhaphy Patient Condition at Discharge: Stable Plan - Discharge Summary Discharge Rx Participant: No New Discharge Prescriptions: No Action Saliva Stimulant Comb. No.3 [Biotene Moisturizing Mouth] 1 spray PO HS PRN PRN Reason: Dry Mouth Omeprazole [PriLOSEC] 20 mg PO DAILY PRN PRN Reason: reflux Ezetimibe 10 mg PO DAILY Cyclobenzaprine [Flexeril] 10 mg PO HS PRN PRN Reason: Spasms Hydrocodone/Acetaminophen [[place] 10-325] 0.5 - 1 tab PO Q6H PRN PRN Reason: Pain Cholecalciferol [Vitamin D3] 4,000 unit PO DAILY methocarbamoL [Robaxin] 1,000 mg PO BID Zolpidem Tartrate [Ambien] 10 mg PO HS PRN PRN Reason: Insomnia Magnesium Oxide [Mag-Ox] 250 mg PO DAILY Aspirin [Adult Low Dose Aspirin EC] 81 mg PO DAILY Vitamin B Complex 1 each PO DAILY ALPRAZolam [Xanax] 0.5 mg PO DAILY PRN PRN Reason: Anxiety Acetaminophen [Tylenol Extra Strength] 1,000 mg PO DIRECTED PRN PRN Reason: Pain Lidocaine 5% Patch [Lidoderm] 1 patch TOPICAL DAILY PRN PRN Reason: Pain Lacosamide [Vimpat] 150 mg PO BID Discharge Medication List Cyclobenzaprine [Flexeril] 10 mg PO HS PRN 07/29/17 [History] Ezetimibe 10 mg PO DAILY 07/29/17 [History] Hydrocodone/Acetaminophen [[place] 10-325] 0.5 - 1 tab PO Q6H PRN 07/29/17 [History] Omeprazole [PriLOSEC] 20 mg PO DAILY PRN 07/29/17 [History] Saliva Stimulant Comb. No.3 [Biotene Moisturizing Mouth] 1 spray PO HS PRN 07/29/17 [History] Cholecalciferol [Vitamin D3] 4,000 unit PO DAILY 10/10/17 [History] methocarbamoL [Robaxin] 1,000 mg PO BID 12/20/17 [History] Zolpidem Tartrate [Ambien] 10 mg PO HS PRN 01/06/18 [History] Magnesium Oxide [Mag-Ox] 250 mg PO DAILY 01/22/19 [History] Aspirin [Adult Low Dose Aspirin EC] 81 mg PO DAILY 05/16/20 [History] Vitamin B Complex 1 each PO DAILY 05/31/20 [History] ALPRAZolam [Xanax] 0.5 mg PO DAILY PRN 06/22/20 [History] Acetaminophen [Tylenol Extra Strength] 1,000 mg PO DIRECTED PRN 06/22/20 [History] Lidocaine 5% Patch [Lidoderm] 1 patch TOPICAL DAILY PRN 07/13/20 [History] Lacosamide [Vimpat] 150 mg PO BID 02/15/22 [History] Follow up Appointment(s)/Referral(s): Mane Crowley MD [STAFF PHYSICIAN] - 2 Weeks Discharge Disposition: HOME SELF-CARE
[2022-02-21 09:01] VITALS: BP 134/63; PULSE 76; TEMP 98.5
[2022-02-21] MEDS ORDERED: ACETAMINOPHEN TAB 325 MG TAB PO PRN (10:33)
== END 2022-02-21 10:10 | disposition home or self-care (01) ==
LOC: OR 07:28 → 4FBP 10:30 → OR 02-21 10:10
PROVIDERS: ATTEND Obstetrics & Gynecology
DX: N81.6 Rectocele (principal); G47.30 Sleep apnea, unspecified; K58.9 Irritable bowel syndrome, unspecified; G40.909 Epilepsy, unspecified, not intractable, without status epilepticus; Z90.49 Acquired absence of other specified parts of digestive tract; Z90.710 Acquired absence of both cervix and uterus; Z98.890 Other specified postprocedural states
CPT/HCPCS: 86900; 86901; 85025; 86850; 57250; J1200; J1100; J0690; J2405; J1885 ×2; J1170

== ENCOUNTER → 2022-07-06 | Outpatient (CLI) | payer MEDICARE ==
--- NOTE | 2022-07-06 10:55 | XR ---
EXAMINATION TYPE: XR thoracic spine complete DATE OF EXAM: 07/06/2022 COMPARISON: NONE HISTORY: Mid back pain TECHNIQUE: 3 views submitted FINDINGS: Alignment is anatomic. There is no compression deformities. Postsurgical change involving the cervic al spine. Multilevel mild degenerative disc disease involving the mid and upper thoracic spine. IMPRESSION: 1. Mild degenerative disc disease involving the mid and upper thoracic spine..
== END | disposition home or self-care (01) ==
LOC: RADXRMAIN 10:28
PROVIDERS: ATTEND Family Medicine
DX: M51.34 Other intervertebral disc degeneration, thoracic region (principal)
CPT/HCPCS: 72072

== ENCOUNTER → 2023-06-03 | Outpatient (CLI) | payer MEDICARE ==
--- NOTE | 2023-06-03 22:06 | US ---
EXAMINATION TYPE: US abdomen complete DATE OF EXAM: 06/03/2023 COMPARISON: NONE CLINICAL INDICATION: Female, 68 years old with history of R10.13 EPIGASTRIC PAIN; pain gb removed TECHNIQUE: Multiple sonographic images of the abdomen are obtained. FINDINGS: EXAM MEASUREMENTS: Liver Length: 13.3 cm Gallbladder Wall: Surgically absent CBD: .5 cm Spleen: 8.3 cm Right Kidney: 9.8 x 4.3 x 4.2 cm Left Kidney: 11.5 x 4.8 x 4.9 cm SUBCONTRACT ADMINISTRATOR NOTES: Pancreas: Duct visualized 2 mm tail obscured by bowel gas Liver: Increased attenuation Gallbladder: Surgically absent Evidence for sonographic Early's sign: No CBD: wnl Spleen: wnl Right Kidney: No hydronephrosis or masses seen Left Kidney: No hydronephrosis or masses seen Upper IVC: wnl Abd Aorta: wnl IMPRESSION: 1. No acute ultrasound abnormality in the abdomen
== END | disposition home or self-care (01) ==
LOC: RADUSWWP 07:58
PROVIDERS: ATTEND Family Medicine
DX: R10.13 Epigastric pain (principal); Z90.49 Acquired absence of other specified parts of digestive tract
CPT/HCPCS: 76700

== ENCOUNTER → 2023-10-11 | Outpatient (CLI) | payer MEDICARE ==
--- NOTE | 2023-10-11 11:31 | NM ---
EXAMINATION TYPE: NM bone scan whole body DATE OF EXAM: 10/11/2023 COMPARISON: X-ray 09/18/2023 CLINICAL INDICATION: Female, 68 years old with history of M54.51 VERTEBROGENIC LOW BACK PAIN; Delayed whole-body scanning was performed following the injection of 23.3 mCi Tc 99m MDP. Images acq uired 3 hours post injection. FINDINGS: Intense abnormal uptake involving the mid and lower lumbar spine. Faint uptake involving the knees, feet and shoulders likely post arthritic. IMPRESSION: Intense abnormal uptake appears to correspond to severe degenerative disc disease, facet arthropathy and areas of postsurgical change. Correlate with MRI as clinically warranted.
== END | disposition home or self-care (01) ==
LOC: RADNMMAIN 07:28
PROVIDERS: ATTEND Physical Medicine & Rehabilitation
DX: M47.816 Spondylosis without myelopathy or radiculopathy, lumbar region (principal); M43.26 Fusion of spine, lumbar region; M43.27 Fusion of spine, lumbosacral region; M51.16 Intervertebral disc disorders with radiculopathy, lumbar region; M51.36 Other intervertebral disc degeneration, lumbar region; M48.062 Spinal stenosis, lumbar region with neurogenic claudication; M16.12 Unilateral primary osteoarthritis, left hip; M43.22 Fusion of spine, cervical region; M47.812 Spondylosis without myelopathy or radiculopathy, cervical region; S22.040D Wedge compression fracture of fourth thoracic vertebra, subsequent encounter for fracture with routine healing
CPT/HCPCS: 78306; A9503

== ENCOUNTER → 2023-12-25 | Outpatient (CLI) | payer MEDICARE ==
--- NOTE | 2024-01-06 11:31 | MM ---
Reason for Exam: Screening (asymptomatic). Last mammogram was performed 7 year(s) and 1 month(s) ago. Patient History: Menarche at age 11. First Full-Term at age 30. Late child-bearing (after 29). Left ovary removed at age 42. Right ovary removed at age 42. Hysterectomy at age 42. Postmenopausal. Estrogen for 1 year, 2 months. Maternal grandmother had breast cancer. Sister had breast cancer at or over age 50. Sister had ovarian cancer at or over age 50. Risk Values: Alexia 5 year model risk: 3.5%. NCI Lifetime model risk: 10.5%. Prior Study Comparison: 03/23/2015 Bilateral Screening Mammogram, [facility]. 11/13/2016 Bilateral Screening Mammogram, [facility]. 11/19/2016 Bilateral Diagnostic Mammogram, [facility]. Tissue Density: The breasts are almost entirely fatty. Findings: Analyzed By CAD. Right breast: There is no suspicious group of microcalcifications or new suspicious mass. Left breast: There is no suspicious group of microcalcifications or new suspicious mass. Overall Assessment: Negative, BI-RAD 1 Management: Screening Mammogram of both breasts in [address] [facility] will attempt to contact patient to return for supplemental views and ultrasound if indicated. Patient should continue monthly self-breast exams. A clinical breast exam by your physician is recommended on an annual basis. This exam should not preclude additional follow-up of suspicious palpable abnormalities. Note on Alexia scores and lifetime risk: 1. A Alexia score greater than 3% is considered moderate risk. If this is the case, consider specialist referral to assess eligibility for a risk reducing agent. 2. If overall lifetime risk for the development of breast cancer is 20% or higher, the patient may qualify for future screening with alternating mammogram and breast MRI. [facility], , 01/06/2024 11:29 AM. Electronically signed and approved by: Bradley Pollock DO
== END | disposition home or self-care (01) ==
LOC: RADMAMWWP 14:39
PROVIDERS: ATTEND Family Medicine
DX: Z12.31 Encounter for screening mammogram for malignant neoplasm of breast
CPT/HCPCS: 77063; 77067

== ENCOUNTER → 2024-06-19 | Outpatient (CLI) | payer MEDICARE ==
--- NOTE | 2024-06-19 11:46 | CT ---
EXAMINATION TYPE: CT brain wo con DATE OF EXAM: 06/19/2024 11:41 AM COMPARISON: None. CLINICAL INDICATION: Female, 69 years old with history of F03.90 dementia, Early stage dementia. TECHNIQUE: Brain: Axial CT images of the brain were obtained with coronal and sagittal reformats created and rev iewed. Contrast used: None. Oral contrast used: None. CT DLP: 1108.4 mGycm, Automated exposure control for dose reduction was used. FINDINGS: Brain: Extra-axial spaces: No abnormal extra-axial fluid collections. Ventricular system: Dilatation in proportion to cerebral atrophy. Cerebral parenchyma: Cerebral atrophy. No acute intraparenchymal hemorrhage or mass effect. The roberto -white junction is well differentiated. Scattered hypoattenuating areas are seen within the white mat ter. Cerebellum: Unremarkable. Mass effect: No evidence of midline shift. Intracranial vasculature: Atherosclerotic calcifications of the intracranial vessels. Soft tissues: Normal. Calvarium/osseous structures: No depressed skull fracture. Paranasal sinuses and mastoid air cells: Mild scattered paranasal sinus disease. Visualized orbits: Orbital contents are intact. IMPRESSION: 1. No acute intracranial process. 2. Nonspecific white matter changes, likely secondary to chronic small vessel ischemic disease. [facility], , 06/19/2024 11:43 AM
== END | disposition home or self-care (01) ==
LOC: RADCTMAIN 11:04
PROVIDERS: ATTEND Family Medicine
DX: F03.90 Unspecified dementia, unspecified severity, without behavioral disturbance, psychotic disturbance, mood disturbance, and anxiety (principal); R90.82 White matter disease, unspecified
CPT/HCPCS: 70450

== ENCOUNTER 2024-08-29 09:25 | Emergency (ER) | payer MEDICARE ==
[2024-08-29] MEDS: PANTOPRAZOLE 40 MG/10 ML VIAL IVP STA (10:36)
[2024-08-29] MEDS: SODIUM CHLORIDE 0.9% 1,000 ML IV ONE (10:36)
[2024-08-29] MEDS: FAMOTIDINE 20 MG/2 ML VIAL IV STA (10:36)
--- NOTE | 2024-08-29 10:54 | ED ---
Abdominal Pain HPI - General Chief Complaint: Nausea/Vomiting/Diarrhea Stated Complaint: Abd Pain Time Seen by Provider: 08/29/24 10:00 Source: patient, RN notes reviewed Mode of arrival: ambulatory Limitations: no limitations - History of Present Illness Initial Comments: This is a 69-year-old female who presents to the emergency department for abdominal pain. Patient was moving a large box a couple of days ago and it fell and hit her in the abdomen. She later developed pain in the epigastric region where it hit her and states that she has noticed a bulge in this area. She has also had nausea and vomiting. She last threw up yesterday and does not currently feel nauseous, however she continues to have pain. Denies any changes in bowel or bladder habits. MD Complaint: abdominal pain - Related Data Home Medications Medication Instructions Recorded Confirmed Cyclobenzaprine [Flexeril] 10 mg PO HS PRN 07/29/17 02/20/22 Ezetimibe 10 mg PO DAILY 07/29/17 02/20/22 Hydrocodone/Acetaminophen [[place] 0.5 - 1 tab PO Q6H PRN 07/29/17 02/20/22 10-325] Omeprazole [PriLOSEC] 20 mg PO DAILY PRN 07/29/17 02/20/22 Saliva Stimulant Comb. No.3 1 spray PO HS PRN 07/29/17 02/20/22 [Biotene Moisturizing Mouth] Cholecalciferol [Vitamin D3] 4,000 unit PO DAILY 10/10/17 02/20/22 methocarbamoL [Robaxin] 1,000 mg PO BID 12/20/17 02/20/22 Zolpidem Tartrate [Ambien] 10 mg PO HS PRN 01/06/18 02/20/22 Magnesium Oxide [Mag-Ox] 250 mg PO DAILY 01/22/19 02/20/22 Aspirin [Adult Low Dose Aspirin EC] 81 mg PO DAILY 05/16/20 02/20/22 Vitamin B Complex 1 each PO DAILY 05/31/20 02/20/22 ALPRAZolam [Xanax] 0.5 mg PO DAILY PRN 06/22/20 02/20/22 Acetaminophen [Tylenol Extra 1,000 mg PO DIRECTED PRN 06/22/20 02/20/22 Strength] Lidocaine 5% Patch [Lidoderm] 1 patch TOPICAL DAILY PRN 07/13/20 02/20/22 Lacosamide [Vimpat] 150 mg PO BID 02/15/22 02/20/22 Previous Rx's Medication Instructions Recorded Famotidine 40 mg PO DAILY #20 tablet 08/29/24 Ondansetron Odt [Zofran Odt] 4 mg PO Q8HR PRN #15 tab 08/29/24 Allergies Allergy/AdvReac Type Severity Reaction Status Date / Time adhesive tape AdvReac Intermediate SEVERE Verified 08/29/24 09:59 IRRITATION, SKIN ASHER AND TURNS RED ibuprofen [From Motrin] AdvReac Intermediate SEVERE Verified 08/29/24 09:59 UPSET STOMACH Review of Systems ROS Statement: Those systems with pertinent positive or pertinent negative responses have been documented in the HPI. ROS Other: All systems not noted in ROS Statement are negative. Past Medical History Past Medical History: Asthma, Diabetes Mellitus, GERD/Reflux, Hyperlipidemia, Memory Impairment, Musculoskeletal Disorder, Osteoarthritis (OA), Seizure Disorder, Sleep Apnea/CPAP/BIPAP, Thyroid Disorder Additional Past Medical History / Comment(s): CHRONIC BACK PAIN; MILD NEUROPATHY; OSTEOPOROSIS; CASANOVA'S NEUROMA; occ IBS, degenerative discs, spinal stenosis, past diabetes(oral rx) was resolved after nodule removed from thryoid. Dry Eyes. HYPERCALCEMIA, partial complex seizures-blank stares. States unknown virus may 2019 with fever & severe headache-she needed physical therapy afterwards and seizures started., states last seizure was "months ago". lump on rt base base of finger History of Any Multi-Drug Resistant Organisms: None Reported Past Surgical History: Back Surgery, Cholecystectomy, Hysterectomy, Orthopedic Surgery Additional Past Surgical History / Comment(s): CERVICAL FUSION C6,C7,T1., LUMBAR FUSION WITH METAL PLATE L4,L5,S1, ANTERIOR INTERBODY LUMBAR LAMINECTOMY. CRUSHING RIGHT HAND INJURY RECONSTRUCTION. SINUS SURGERY. PARTIAL THYROIDECTOMY AND PARTIAL PARATHYROIDECTOMY. PAIN CLINIC PROCEDURE. bone spur removed from ring finger rt hand, nail bed tissue removed from small finger rt hand Past Anesthesia/Blood Transfusion Reactions: Postoperative Nausea & Vomiting (PONV) Additional Past Anesthesia/Blood Transfusion Reaction / Comment(s): PONV X1 occasion. Past Psychological History: Anxiety, Depression Smoking Status: Former smoker Past Alcohol Use History: Occasional Past Drug Use History: None Reported - Past Family History Mother Family Medical History: No Reported History Sister(s) Family Medical History: Cancer Additional Family Medical History / Comment(s): 2 SISTERS- LUNG CANCER. General Exam Limitations: no limitations General appearance: alert, in no apparent distress Head exam: Present: atraumatic, normocephalic, normal inspection Respiratory exam: Present: normal lung sounds bilaterally. Absent: respiratory distress, wheezes, rales, rhonchi, stridor Cardiovascular Exam: Present: regular rate, normal rhythm GI/Abdominal exam: Present: soft, tenderness (Epigastric), normal bowel sounds. Absent: distended Neurological exam: Present: alert, oriented X3, CN II-XII intact Psychiatric exam: Present: normal affect, normal mood Skin exam: Present: warm, dry, intact, normal color. Absent: rash Course Vital Signs 08/29/24 08/29/24 08/29/24 09:54 10:35 11:00 Temperature 98.3 F Pulse Rate 92 74 78 Respiratory 18 16 19 Rate Blood Pressure 161/98 143/83 143/83 O2 Sat by Pulse 98 97 97 Oximetry 08/29/24 08/29/24 11:30 12:54 Temperature 98.1 F Pulse Rate 91 73 Respiratory 19 18 Rate Blood Pressure 159/76 143/71 O2 Sat by Pulse 98 97 Oximetry Medical Decision Making - Medical Decision Making This is a 69-year-old female who presents to the emergency department for abdominal pain. Was pt. sent in by a medical professional or institution? @ -No Did you speak to anyone other than the patient for history? @ -No Did you review nursing and triage notes? @ -Yes, and I agree, it is accurate with regards to the patient's symptoms. Were old charts reviewed? @ -No Differential Diagnosis? @ -Differential Abdominal Pain Women: Appendicitis, Cholecystitis, diverticulosis, ischemic bowel, pancreatitis, he patitis, UTI, gastroenteritis, AAA, incarcerated hernia, bowel obstruction, constipation, inflammatory bowel, hepatitis, peptic ulcer disease, splenic infarction, perforated viscus, vulvitis, ovarian torsion, PID, kidney stone, placenta abruption, this is not meant to be an all-inclusive list EKG interpreted by me (3pts min.)? @ -EKG interpreted by me demonstrating the following: Sinus rhythm. Ventricular rate 74 bpm, OK interval 178 ms, QRS duration 83 ms, QTc 404 ms. X-rays interpreted by me (1pt min.)? @ -Not obtained CT interpreted by me (1pt min.)? @ -CT scan of the abdomen and pelvis obtained. My interpretation identifies no bowel wall thickening or free air. U/S interpreted by me (1pt. min.)? @ -Not obtained What testing was considered but not performed? (CT, X-rays, U/S, labs)? Why? @ -None What meds were considered but not given? Why? @ -None Did you discuss the management of the patient with other professionals? @ -No Did you reconcile home meds? @ -No Was smoking cessation discussed for >3mins.? @ -No Was critical care preformed (if so, how long)? @ -No Were there social determinants of health that impacted care today? How? (Homelessness, low income, unemployed, alcoholism, drug addiction, trans portation, low edu. Level, literacy, decrease access to med. care, fdc, rehab)? @ -No Was there de-escalation of care discussed even if they declined? (Discuss DNR or withdrawal of care, Hospice)? @ -No What co-morbidities impacted this encounter? (DM, HTN, Smoking, COPD, CAD, Cancer, CVA, Hep., AIDS, mental health diagnosis, sleep apnea, morbid obesity)? @ -DM, memory impairment Was patient admitted / discharged? @ -Discharged. Lab work demonstrates mild hypokalemia with a potassium of 3.0 and is otherwise unremarkable. CT scan of the abdomen and pelvis reveals no acute process. 40 mEq of K-Dur administered for the hypokalemia. She was also treated with IV fluids, pantoprazole, and famotidine. She did have improvement in symptoms following those medications. It is unclear if her pain is related to the injury or something like a gastritis. Famotidine prescribed given that she did seem to have improvement with this. Zofran prescribed as well in the event she has any additional nausea. Patient discharged home in stable condition. Case discussed with ED attending, Dr. Browning. Return precautions reviewed in depth, the patient is instructed to return to the emergency department with any new, worsening, or concerning symptoms. Patient verbalized understanding. Undiagnosed new problem with uncertain prognosis? @ -None Drug Therapy requiring intensive monitoring for toxicity (Heparin, Nitro, Insulin, Cardizem)? @ -None Were any procedures done? @ -None Diagnosis/symptom? @ -Abdominal pain, nausea and vomiting, hypokalemia Acute, or Chronic, or Acute on Chronic? @ -Acute Uncomplicated (without systemic symptoms) or Complicated (systemic symptoms)? @ -Uncomplicated Side effects of treatment? @ -None Exacerbation, Progression, or Severe Exacerbation] @ -Not applicable Poses a threat to life or bodily function? @ -No - Lab Data Result diagrams: 08/29/24 10:33 08/29/24 10:33 Lab Results 08/29/24 08/29/24 08/29/24 Range/Units 10:33 10:33 10:33 WBC 7.59 (4.50-10.00) 10*3/uL RBC 4.80 (4.10-5.20) 10*6/uL Hgb 15.1 H (12.0-15.0) g/dL Hct 43.9 (37.2-46.3) % MCV 91.5 (80.0-97.0) fL MCH 31.5 (27.0-32.0) pg MCHC 34.4 (32.0-37.0) g/dL Plt Count 229 (140-440) 10*3/uL MPV 9.7 (9.5-12.2) fL Immature Gran % (Auto) 0.3 % Neutrophils % 73.3 % Lymphocytes % 15.8 % Monocytes % 9.4 % Eosinophils % 0.8 % Basophils % 0.4 % Immature Gran # 0.02 (0.00-0.04) 10*3/uL Neutrophils # 5.57 (1.80-7.70) 10*3/uL Lymphocytes # 1.20 (0.90-5.00) 10*3/uL Monocytes # 0.71 (0.20-1.00) 10*3/uL Eosinophils # 0.06 (0.04-0.35) 10*3/uL Basophils # 0.03 (0.00-0.10) 10*3/uL Sodium 138 (137-145) mmol/L Potassium 3.0 L (3.5-5.1) mmol/L Chloride 100 (98-107) mmol/L Carbon Dioxide 31 H (22-30) mmol/L Anion Gap 7 mmol/L BUN 12 (7-17) mg/dL Creatinine 0.57 (0.52-1.04) mg/dL Est GFR (CKD-EPI)AfAm >90 (>60 ml/min/1.73 sqM) Est GFR (CKD-EPI)NonAf >90 (>60 ml/min/1.73 sqM) Glucose 122 H (74-99) mg/dL Plasma Lactic Acid Lavell 1.3 (0.7-2.0) mmol/L Calcium 10.1 (8.4-10.2) mg/dL Magnesium 1.8 (1.6-2.3) mg/dL Total Bilirubin 0.6 (0.2-1.3) mg/dL AST 18 (14-36) U/L ALT 16 (4-34) U/L Alkaline Phosphatase 53 (38-126) U/L Total Protein 6.5 (6.3-8.2) g/dL Albumin 3.9 (3.5-5.0) g/dL Amylase 49 (30-110) U/L Lipase 84 (23-300) U/L - Radiology Data Radiology results: report reviewed, image reviewed Disposition Clinical Impression: Abdominal pain, Nausea and vomiting, Hypokalemia Disposition: HOME SELF-CARE Instructions (If sedation given, give patient instructions): Acute Nausea and Vomiting (ED), Abdominal Pain (ED) Additional Instructions: Return to the emergency department with any new, worsening, or concerning symptoms. Take the famotidine daily for the next couple of weeks. Take the Zofran up to every 8 hours as needed for nausea and vomiting. Follow up with your primary care provider in 1-2 days. Prescriptions: Famotidine 40 mg PO DAILY #20 tablet Ondansetron Odt [Zofran Odt] 4 mg PO Q8HR PRN #15 tab PRN Reason: Nausea And Vomiting Is patient prescribed a controlled substance at d/c from ED?: No Referrals: Lenard Mchugh MD [Primary Care Provider] - 1-2 days Time of Disposition: 12:37
[2024-08-29 11:01] LABS: Basophils # (A) 0.03 10*3/uL (0.00-0.10); Basophils % (A) 0.4 %; Eosinophils # (A) 0.06 10*3/uL (0.04-0.35); Eosinophils % (A) 0.8 %; HCT 43.9 % (37.2-46.3); HGB 15.1 g/dL (12.0-15.0); Lymphocytes % (A) 15.8 %; MCH 31.5 pg (27.0-32.0); MCHC 34.4 g/dL (32.0-37.0); MCV 91.5 fL (80.0-97.0); Mean Platelet Volume 9.7 fL (9.5-12.2); Monocytes # (A) 0.71 10*3/uL (0.20-1.00); Monocytes % (A) 9.4 %; Neutrophils # (A) 5.57 10*3/uL (1.80-7.70); Neutrophils % (A) 73.3 %; Platelet Count 229 10*3/uL (140-440); RDW 12.4 % (11.5-14.5); WBC 7.59 10*3/uL (4.50-10.00)
[2024-08-29 11:18] LABS: ALT 16 U/L (4-34); AST 18 U/L (14-36); African American GFR (CKD) >90 (>60 ml/min/1.73 sqM); Albumin 3.9 g/dL (3.5-5.0); Alkaline Phosphatase 53 U/L (38-126); Amylase 49 U/L (30-110); Anion Gap 7 mmol/L; Blood Urea Nitrogen 12 mg/dL (7-17); Calcium 10.1 mg/dL (8.4-10.2); Carbon Dioxide 31 mmol/L (22-30); Chloride 100 mmol/L (98-107); Glucose 122 mg/dL (74-99); Lipase 84 U/L (23-300); Magnesium 1.8 mg/dL (1.6-2.3); Non-African American GFR(CKD) >90 (>60 ml/min/1.73 sqM); Sodium 138 mmol/L (137-145); Total Bilirubin 0.6 mg/dL (0.2-1.3); Total Protein 6.5 g/dL (6.3-8.2)
[2024-08-29] MEDS: POTASSIUM CHLORIDE ER 20 MEQ TAB.ER PO STA (11:28)
--- NOTE | 2024-08-29 12:19 | CT ---
EXAMINATION TYPE: CT abdomen pelvis w con CT DLP: 982.7 mGycm, Automated exposure control for dose reduction was used. DATE OF EXAM: 08/29/2024 12:10 PM COMPARISON: CT abdomen pelvis 03/03/2021 CLINICAL INDICATION:Female, 69 years old with history of Epigastric pain; Epigastric pain and tendern ess TECHNIQUE: Standard CT of the abdomen and pelvis following the administration of 100 cc of Isovue 3 00 IV contrast material. Coronal and sagittal reformats were performed. FINDINGS: LOWER CHEST: Posterior dependent subsegmental atelectasis is noted. Right lower lobe 3.3 mm solid pul monary nodule (series 204, image 21). ABDOMEN LIVER: Unremarkable GALLBLADDER AND BILE DUCTS: The gallbladder is surgically absent. No biliary ductal dilatation. PANCREAS: Unremarkable. SPLEEN: Unremarkable. ADRENAL GLANDS: Unremarkable. KIDNEYS AND URETERS: No evidence of hydronephrosis or renal calculus. The kidneys enhance symmetrical ly. Contrast imaging within both collecting systems and proximal ureters on the delayed phase. PELVIS BLADDER: Unremarkable REPRODUCTIVE: The uterus is surgically absent. ABDOMEN & PELVIS STOMACH AND BOWEL: Stomach and duodenum are unremarkable. Some hyperdense material identified within the stomach. Scattered distal colonic diverticula without evidence for acute diverticulitis. The appe ndix is within normal limits. No focal bowel wall thickening or surrounding inflammatory changes. No evidence of bowel obstruction. PERITONEUM: No evidence of pneumoperitoneum or free fluid. VASCULATURE: Moderate atherosclerotic calcifications are present throughout the abdominal aorta and i ts branches. No evidence of aortic aneurysm. MUSCULOSKELETAL: No acute osseous abnormalities. Postsurgical changes from right-sided posterior lumb ar fusion with pedicular screws and dior involving L4-S1 laminectomy change. Grade 1 anterolisthesis o f L3 on L4 without evidence of pars defects. Moderate degenerative disc disease L2-L3. LYMPH NODES: No evidence for lymphadenopathy. SOFT TISSUE/ABDOMINAL WALL: Unremarkable IMPRESSION: 1. No CT evidence for acute abdominal/pelvic process. 2. Colonic diverticulosis without evidence for acute diverticulitis. 3. Right lower lobe 3.3 mm pulmonary nodule. According to Fleischner criteria in a low-risk patient n o follow up is recommended. In a high-risk patient consider optional CT chest in 12 months. [facility], , 08/29/2024 12:16 PM
[2024-08-29 12:56] VITALS: BP 143/71; PULSE 73; RESP 18; TEMP 98.1
== END 2024-08-29 12:54 | disposition home or self-care (01) ==
LOC: EC 09:25
DX: R11.2 Nausea with vomiting, unspecified (principal); E87.6 Hypokalemia; R10.9 Unspecified abdominal pain; E11.9 Type 2 diabetes mellitus without complications; Z87.891 Personal history of nicotine dependence; Z88.6 Allergy status to analgesic agent; Z88.8 Allergy status to other drugs, medicaments and biological substances
CPT/HCPCS: 36415; 93005; 80053; 82150; 83605; 83690; 83735; 85025; 74177; 99284; 96374; 96375; 96361 ×2; Q9967; J2470; J1308

== ENCOUNTER 2024-09-08 18:43 | Emergency (ER) | payer MEDICARE ==
[2024-09-08 18:46] VITALS: TEMP 97.8
[2024-09-08] MEDS: LACTATED RINGERS 1,000 ML IV ONE (19:53)
[2024-09-08] MEDS: PANTOPRAZOLE 40 MG/10 ML VIAL IVP STA (19:54)
[2024-09-08] MEDS: ONDANSETRON 4 MG/2 ML VIAL IVP STA ×2 (19:54→22:28)
[2024-09-08] MEDS: KETOROLAC 15 MG/ML 1 ML VIAL IVP STA (19:54)
[2024-09-08 20:00] LABS: Basophils # (A) 0.04 10*3/uL (0.00-0.10); Basophils % (A) 0.5 %; Eosinophils # (A) 0.25 10*3/uL (0.04-0.35); Eosinophils % (A) 3.4 %; HCT 46.7 % (37.2-46.3); HGB 15.6 g/dL (12.0-15.0); Lymphocytes # (A) 1.85 10*3/uL (0.90-5.00); Lymphocytes % (A) 25.4 %; MCH 30.9 pg (27.0-32.0); MCHC 33.4 g/dL (32.0-37.0); MCV 92.5 fL (80.0-97.0); Monocytes # (A) 0.75 10*3/uL (0.20-1.00); Monocytes % (A) 10.3 %; Neutrophils # (A) 4.37 10*3/uL (1.80-7.70); Neutrophils % (A) 60.1 %; Platelet Count 235 10*3/uL (140-440); RBC 5.05 10*6/uL (4.10-5.20); RDW 12.6 % (11.5-14.5); WBC 7.28 10*3/uL (4.50-10.00)
[2024-09-08 20:09] LABS: Appearance,Urine Cloudy (Clear); Bilirubin,Urine Negative (Negative); Blood,Urine Trace (Negative); Color,Urine Light Yellow; Glucose,Urine (UA) Negative (Negative); Hyaline Casts,Urine 1 /lpf (0-2); Ketones,Urine 1+ (Negative); Leukocyte Esterase,Urine Moderate (Negative); Mucus,Urine Rare /hpf; Nitrite,Urine Negative (Negative); Protein,Urine Negative (Negative); RBC,Urine 2 /hpf (0-5); Specific Gravity,Urine 1.016 (1.001-1.035); Squamous Epithelial Cell,Urine 4 /hpf (0-4); Urobilinogen,Urine <2.0 mg/dL (<2.0); WBC,Urine 22 /hpf (0-5)
[2024-09-08 20:20] LABS: INR 0.9 (<1.2); Partial Thromboplastin Time 21.4 sec (22.0-30.0); Prothrombin Time 10.3 sec (10.0-12.5)
[2024-09-08 20:21] LABS: ALT 22 U/L (4-34); AST 25 U/L (14-36); African American GFR (CKD) >90 (>60 ml/min/1.73 sqM); Albumin 4.3 g/dL (3.5-5.0); Alkaline Phosphatase 54 U/L (38-126); Amylase 56 U/L (30-110); Anion Gap 10 mmol/L; Blood Urea Nitrogen 11 mg/dL (7-17); Calcium 9.7 mg/dL (8.4-10.2); Carbon Dioxide 28 mmol/L (22-30); Chloride 103 mmol/L (98-107); Glucose 117 mg/dL (74-99); Lipase 87 U/L (23-300); Non-African American GFR(CKD) >90 (>60 ml/min/1.73 sqM); Potassium 3.5 mmol/L (3.5-5.1); Sodium 141 mmol/L (137-145); Total Bilirubin 0.9 mg/dL (0.2-1.3)
--- NOTE | 2024-09-08 22:41 | CT ---
EXAMINATION TYPE: CT abdomen pelvis w con DATE OF EXAM: 09/08/2024 9:41 PM COMPARISON: None. CLINICAL INDICATION: Female, 69 years old with history of abdominal pain.general pain/distention with n/v/d, N/V SINCE YESTERDAY TECHNIQUE: Axial images were obtained from above the diaphragm to the pubic rami in the axial plane a t 5 mm thick sections. Reconstructed images are reviewed on the computer in the coronal plane. CONTRAST: 100 ml mL of Isovue 300. Study performed without Oral Contrast DLP: 903.7 mGycm, Automated exposure control for dose reduction was used. FINDINGS: Limited CT sections are obtained the lung bases. The lung bases are clear. CT ABDOMEN: Liver: Normal Spleen: Normal Pancreas: Normal Adrenal glands: The adrenal glands are normal. Gallbladder: Surgically absent Kidneys: No masses are evident. No hydronephrosis is present. No cysts are present. Delayed images were obtained through the kidneys, which remain unremarkable. Aorta: Vascular calcification is within the aorta. Inferior vena cava: Normal. CT PELVIS: Loops of bowel within the abdomen and pelvis are normal. There are scattered diverticuli through the sigmoid colon. No adjacent inflammatory changes suggest acute diverticulitis. No dilated loops of bow el are evident. No fluid-filled small bowel loops. Studies without oral contrast limiting evaluati on Appendix: Poorly visualized. No dilated tubular structure inflammatory changes evident. Urinary bladder: Normal. Genitourinary structures: Uterus and ovaries are not identified Osseous structures: No suspicious lytic or sclerotic lesions. Fixation pedicle screws and rods are in the right lower lumbar spine IMPRESSION: 1. No suspicious abnormalities account for nausea and vomiting. No small bowel ileus or obstruction evident. [facility], , 09/08/2024 10:38 PM
--- NOTE | 2024-09-08 23:05 | ED ---
General Adult HPI - General Chief complaint: Nausea/Vomiting/Diarrhea Stated complaint: Fever/Vomiting Time Seen by Provider: 09/08/24 19:28 Source: patient, RN notes reviewed, old records reviewed Mode of arrival: ambulatory Limitations: no limitations - History of Present Illness Initial comments: Patient is a 69-year-old female who presents with abdominal pain of unknown etiology, nausea, vomiting, diarrhea. States pain and symptoms restarted yesterday after being symptom-free for over a week. Was evaluated earlier this month for similar complaints. Has no known diagnosis. Presents for further evaluation. States she has nonbilious nonbloody emesis. Is unable to hold food down. Endorses nonbloody diarrhea. Denies constipation. Endorses generalized abdominal discomfort. Denies chest pain or shortness of breath. No fevers or chills. No urinary complaints. Presents for further evaluation at this time. States symptoms did resolve but when they restarted yesterday presents for further evaluation. - Related Data Home Medications Medication Instructions Recorded Confirmed Cyclobenzaprine [Flexeril] 10 mg PO HS PRN 07/29/17 02/20/22 Ezetimibe 10 mg PO DAILY 07/29/17 02/20/22 Hydrocodone/Acetaminophen [[place] 0.5 - 1 tab PO Q6H PRN 07/29/17 02/20/22 10-325] Omeprazole [PriLOSEC] 20 mg PO DAILY PRN 07/29/17 02/20/22 Saliva Stimulant Comb. No.3 1 spray PO HS PRN 07/29/17 02/20/22 [Biotene Moisturizing Mouth] Cholecalciferol [Vitamin D3] 4,000 unit PO DAILY 10/10/17 02/20/22 methocarbamoL [Robaxin] 1,000 mg PO BID 12/20/17 02/20/22 Zolpidem Tartrate [Ambien] 10 mg PO HS PRN 01/06/18 02/20/22 Magnesium Oxide [Mag-Ox] 250 mg PO DAILY 01/22/19 02/20/22 Aspirin [Adult Low Dose Aspirin EC] 81 mg PO DAILY 05/16/20 02/20/22 Vitamin B Complex 1 each PO DAILY 05/31/20 02/20/22 ALPRAZolam [Xanax] 0.5 mg PO DAILY PRN 06/22/20 02/20/22 Acetaminophen [Tylenol Extra 1,000 mg PO DIRECTED PRN 06/22/20 02/20/22 Strength] Lidocaine 5% Patch [Lidoderm] 1 patch TOPICAL DAILY PRN 07/13/20 02/20/22 Lacosamide [Vimpat] 150 mg PO BID 02/15/22 02/20/22 Previous Rx's Medication Instructions Recorded Famotidine 40 mg PO DAILY #20 tablet 08/29/24 Ondansetron Odt [Zofran Odt] 4 mg PO Q8HR PRN #15 tab 08/29/24 Famotidine [Pepcid] 20 mg PO DAILY 14 Days #14 tablet 09/08/24 Allergies Allergy/AdvReac Type Severity Reaction Status Date / Time adhesive tape AdvReac Intermediate SEVERE Verified 09/08/24 18:46 IRRITATION, SKIN ASHER AND TURNS RED ibuprofen [From Motrin] AdvReac Intermediate SEVERE Verified 09/08/24 18:46 UPSET STOMACH Review of Systems ROS Statement: Those systems with pertinent positive or pertinent negative responses have been documented in the HPI. Review of Systems: CONST: Denies fever EYES: Denies blurry vision ENT: Denies nasal congestion C/V: Denies Chest pain RESP: Denies shortness of breath GI: Endorses abdominal pain : Denies dysuria SKIN: Denies rash. MSK: Denies joint pain. NEURO: Denies headache ROS Other: All systems not noted in ROS Statement are negative. Past Medical History Past Medical History: Asthma, Diabetes Mellitus, GERD/Reflux, Hyperlipidemia, Memory Impairment, Musculoskeletal Disorder, Osteoarthritis (OA), Seizure Disorder, Sleep Apnea/CPAP/BIPAP, Thyroid Disorder Additional Past Medical History / Comment(s): CHRONIC BACK PAIN; MILD NEUROPATHY; OSTEOPOROSIS; CASANOVA'S NEUROMA; occ IBS, degenerative discs, spinal stenosis, past diabetes(oral rx) was resolved after nodule removed from thryoid. Dry Eyes. HYPERCALCEMIA, partial complex seizures-blank stares. States unknown virus may 2019 with fever & severe headache-she needed physical therapy afterwards and seizures started., states last seizure was "months ago". lump on rt base base of finger History of Any Multi-Drug Resistant Organisms: None Reported Past Surgical History: Back Surgery, Cholecystectomy, Hysterectomy, Orthopedic Surgery Additional Past Surgical History / Comment(s): CERVICAL FUSION C6,C7,T1., LUMBAR FUSION WITH METAL PLATE L4,L5,S1, ANTERIOR INTERBODY LUMBAR LAMINECTOMY. CRUSHING RIGHT HAND INJURY RECONSTRUCTION. SINUS SURGERY. PARTIAL THYROIDECTOMY AND PARTIAL PARATHYROIDECTOMY. PAIN CLINIC PROCEDURE. bone spur removed from ring finger rt hand, nail bed tissue removed from small finger rt hand Past Anesthesia/Blood Transfusion Reactions: Postoperative Nausea & Vomiting (PONV) Additional Past Anesthesia/Blood Transfusion Reaction / Comment(s): PONV X1 occasion. Past Psychological History: Anxiety, Depression Smoking Status: Former smoker Past Alcohol Use History: Occasional Past Drug Use History: None Reported - Past Family History Mother Family Medical History: No Reported History Sister(s) Family Medical History: Cancer Additional Family Medical History / Comment(s): 2 SISTERS- LUNG CANCER. General Exam Limitations: no limitations Course Vital Signs 09/08/24 09/08/24 18:44 20:03 Temperature 97.8 F Pulse Rate 98 74 Respiratory 18 20 Rate Blood Pressure 157/95 161/95 O2 Sat by Pulse 94 L 98 Oximetry Medical Decision Making - Medical Decision Making Was pt. sent in by a medical professional or institution (, PA, [employer], urgent care, hospital, or group home...) When possible be specific @ -No Did you speak to anyone other than the patient for history (EMS, parent, family, police, friend...)? What history was obtained from this source @ -No Did you review nursing and triage notes (agree or disagree)? Why? @ -I reviewed and agree with nursing and triage notes Were old charts reviewed (outside hosp., previous admission, EMS record, old EKG, old radiological studies, urgent care reports/EKG's, group home records)? Report findings @ -Reviewed charts from August 2024 the patient presented with similar complaints. CT imaging and labs at that time unremarkable. Differential Diagnosis (chest pain, altered mental status, abdominal pain women, abdominal pain men, vaginal bleeding, weakness, fever, dyspnea, syncope, headache, dizziness, GI bleed, back pain, seizure, CVA, palpatations, mental health, musculoskeletal)? @ -Differential Abdominal Pain Women: Appendicitis, Cholecystitis, diverticulosis, ischemic bowel, pancreatitis, hepatitis, UTI, gastroenteritis, AAA, incarcerated hernia, bowel obstruction, constipation, inflammatory bowel, hepatitis, peptic ulcer disease, splenic infarction, perforated viscus, vulvitis, ovarian torsion, PID, kidney stone, placenta abruption, this is not meant to be an all-inclusive list EKG interpreted by me (3pts min.). @ -As above X-rays interpreted by me (1pt min.). @ -None done CT interpreted by me (1pt min.). @ -CT abdomen pelvis shows no obvious acute intra-abdominal process. U/S interpreted by me (1pt. min.). @ -None done What testing was considered but not performed or refused? (CT, X-rays, U/S, labs)? Why? @ -None What meds were considered but not given or refused? Why? @ -None Did you discuss the management of the patient with other professionals (professionals i.e. , PA, [employer], lab, RT, psych nurse, health social work professor, reacher, teacher, targeting acquisition officer, case investigator)? Give summary @ -Discussed with PCP, Dr. Mchugh who was in agreement plan for follow-up outpatient. Was smoking cessation discussed for >3mins.? @ -No Was critical care preformed (if so, how long)? @ -No Were there social determinants of health that impacted care today? How? (Homelessness, low income, unemployed, alcoholism, drug addiction, transpo rtation, low edu. Level, literacy, decrease access to med. care, detention, rehab)? @ -No Was there de-escalation of care discussed even if they declined (Discuss DNR or withdrawal of care, Hospice)? DNR status @ -No What co-morbidities impacted this encounter? (DM, HTN, Smoking, COPD, CAD, Cancer, CVA, ARF, Chemo, Hep., AIDS, mental health diagnosis, sleep apnea, morbid obesity)? @ -None Was patient admitted / discharged? Hospital course, mention meds given and route, prescriptions, significant lab abnormalities, going to OR and other pertinent info. @ -Presents emergency department for abdominal pain of unknown etiology. We will obtain abdominal pain workup. She was in agreement this plan. Given IV fluids, Zofran, Toradol, Protonix. Vitals within acceptable limits. Laboratory studies returned unremarkable. Urinalysis is contaminated. Lactic acid within normal limits. CT abdomen pelvis negative for any obvious acute intra-abdominal process. EKG within normal limits. I updated the patient. I do believe it is safer to be discharged home at this time with close follow-up. She was in agreement this plan. I did speak with Dr. Mchugh at her request who was in agreement the plan for follow-up with him in the office. Patient be discharged home with prescription for Pepcid as well as ODT Zofran starter pack. Recommended follow-up with Dr. Mchugh as well as Dr. Shelley of GI. She was in agreement this plan. I instructed the patient to follow up with their PCP in the next 1-3 days. I explained that the patient should return to the emergency department if they experience any worsening symptoms. Strict return precautions were discussed with the patient. The patient expressed understanding of these instructions. I answered all questions that the patient had. The patient was discharged home in good condition with their prescriptions and follow up information. Undiagnosed new problem with uncertain prognosis? @ -No Drug Therapy requiring intensive monitoring for toxicity (Heparin, Nitro, Insulin, Cardizem)? @ -No Were any procedures done? @ -No Diagnosis/symptom? @ -Abdominal pain of unknown etiology, nausea, vomiting, diarrhea Acute, or Chronic, or Acute on Chronic? @ -Acute Uncomplicated (without systemic symptoms) or Complicated (systemic symptoms)? @ -Uncomplicated Side effects of treatment? @ -No Exacerbation, Progression, or Severe Exacerbation? @ -No Poses a threat to life or bodily function? How? (Chest pain, [place], [place], pneumonia, PE, COPD, DKA, ARF, appy, cholecystitis, CVA, Diverticulitis, Homicidal, Suicidal, threat to staff... and all critical care pts) @ -Unlikely at this time - Lab Data Result diagrams: 09/08/24 19:39 09/08/24 19:39 Lab Results 09/08/24 09/08/24 09/08/24 Range/Units 19:39 19:39 19:39 WBC 7.28 (4.50-10.00) 10*3/uL RBC 5.05 (4.10-5.20) 10*6/uL Hgb 15.6 H (12.0-15.0) g/dL Hct 46.7 H (37.2-46.3) % MCV 92.5 (80.0-97.0) fL MCH 30.9 (27.0-32.0) pg MCHC 33.4 (32.0-37.0) g/dL Plt Count 235 (140-440) 10*3/uL MPV 11.0 (9.5-12.2) fL Immature Gran % (Auto) 0.3 % Neutrophils % 60.1 % Lymphocytes % 25.4 % Monocytes % 10.3 % Eosinophils % 3.4 % Basophils % 0.5 % Immature Gran # 0.02 (0.00-0.04) 10*3/uL Neutrophils # 4.37 (1.80-7.70) 10*3/uL Lymphocytes # 1.85 (0.90-5.00) 10*3/uL Monocytes # 0.75 (0.20-1.00) 10*3/uL Eosinophils # 0.25 (0.04-0.35) 10*3/uL Basophils # 0.04 (0.00-0.10) 10*3/uL PT 10.3 (10.0-12.5) sec INR 0.9 (<1.2) APTT 21.4 L (22.0-30.0) sec Sodium (137-145) mmol/L Potassium (3.5-5.1) mmol/L Chloride (98-107) mmol/L Carbon Dioxide (22-30) mmol/L Anion Gap mmol/L BUN (7-17) mg/dL Creatinine (0.52-1.04) mg/dL Est GFR (CKD-EPI)AfAm (>60 ml/min/1.73 sqM) Est GFR (CKD-EPI)NonAf (>60 ml/min/1.73 sqM) Glucose (74-99) mg/dL Plasma Lactic Acid Lavell (0.7-2.0) mmol/L Calcium (8.4-10.2) mg/dL Total Bilirubin (0.2-1.3) mg/dL AST (14-36) U/L ALT (4-34) U/L Alkaline Phosphatase (38-126) U/L Total Protein (6.3-8.2) g/dL Albumin (3.5-5.0) g/dL Amylase (30-110) U/L Lipase (23-300) U/L Urine Color Light Yellow Urine Appearance Cloudy H (Clear) Urine pH 7.0 (5.0-8.0) Ur Specific Simms 1.016 (1.001-1.035) Urine Protein Negative (Negative) Urine Glucose (UA) Negative (Negative) Urine Ketones 1+ H (Negative) Urine Blood Trace H (Negative) Urine Nitrite Negative (Negative) Urine Bilirubin Negative (Negative) Urine Urobilinogen <2.0 (<2.0) mg/dL Ur Leukocyte Esterase Moderate H (Negative) Urine RBC 2 (0-5) /hpf Urine WBC 22 H (0-5) /hpf Ur Squamous Epith Cells 4 (0-4) /hpf Hyaline Casts 1 (0-2) /lpf Urine Mucus Rare H (None) /hpf 09/08/24 09/08/24 Range/Units 19:39 19:39 WBC (4.50-10.00) 10*3/uL RBC (4.10-5.20) 10*6/uL Hgb (12.0-15.0) g/dL Hct (37.2-46.3) % MCV (80.0-97.0) fL MCH (27.0-32.0) pg MCHC (32.0-37.0) g/dL Plt Count (140-440) 10*3/uL MPV (9.5-12.2) fL Immature Gran % (Auto) % Neutrophils % % Lymphocytes % % Monocytes % % Eosinophils % % Basophils % % Immature Gran # (0.00-0.04) 10*3/uL Neutrophils # (1.80-7.70) 10*3/uL Lymphocytes # (0.90-5.00) 10*3/uL Monocytes # (0.20-1.00) 10*3/uL Eosinophils # (0.04-0.35) 10*3/uL Basophils # (0.00-0.10) 10*3/uL PT (10.0-12.5) sec INR (<1.2) APTT (22.0-30.0) sec Sodium 141 (137-145) mmol/L Potassium 3.5 (3.5-5.1) mmol/L Chloride 103 (98-107) mmol/L Carbon Dioxide 28 (22-30) mmol/L Anion Gap 10 mmol/L BUN 11 (7-17) mg/dL Creatinine 0.52 (0.52-1.04) mg/dL Est GFR (CKD-EPI)AfAm >90 (>60 ml/min/1.73 sqM) Est GFR (CKD-EPI)NonAf >90 (>60 ml/min/1.73 sqM) Glucose 117 H (74-99) mg/dL Plasma Lactic Acid Lavell 1.3 (0.7-2.0) mmol/L Calcium 9.7 (8.4-10.2) mg/dL Total Bilirubin 0.9 (0.2-1.3) mg/dL AST 25 (14-36) U/L ALT 22 (4-34) U/L Alkaline Phosphatase 54 (38-126) U/L Total Protein 7.0 (6.3-8.2) g/dL Albumin 4.3 (3.5-5.0) g/dL Amylase 56 (30-110) U/L Lipase 87 (23-300) U/L Urine Color Urine Appearance (Clear) Urine pH (5.0-8.0) Ur Specific Simms (1.001-1.035) Urine Protein (Negative) Urine Glucose (UA) (Negative) Urine Ketones (Negative) Urine Blood (Negative) Urine Nitrite (Negative) Urine Bilirubin (Negative) Urine Urobilinogen (<2.0) mg/dL Ur Leukocyte Esterase (Negative) Urine RBC (0-5) /hpf Urine WBC (0-5) /hpf Ur Squamous Epith Cells (0-4) /hpf Hyaline Casts (0-2) /lpf Urine Mucus (None) /hpf - EKG Data -: EKG Interpreted by Me EKG Comments: 12-lead Electrocardiogram Interpretation Note EKG was reviewed and interpreted by myself. 12-lead ECG performed at 1948 is interpreted by me as revealing normal sinus rhythm at a rate of 64 beats per min [place]. [place] is normal. MI interval is 165 ms, QRS durations 94 ms, QTc is 405 ms.. There were no ST or T wave abnormalities to suggest myocardial ischemia or injury. R wave progression across the precordium was satisfactory. By my interpretation this EKG is non-diagnostic for acute ischemia. Disposition Clinical Impression: Abdominal pain of unknown etiology, Nausea and vomiting, Diarrhea Disposition: HOME SELF-CARE Condition: Good Instructions (If sedation given, give patient instructions): Acute Nausea and Vomiting (ED), Acute Diarrhea (ED), Abdominal Pain (ED) Prescriptions: Famotidine [Pepcid] 20 mg PO DAILY 14 Days #14 tablet Is patient prescribed a controlled substance at d/c from ED?: No Referrals: Lenard Mchugh MD [Primary Care Provider] - 1-2 days Gerda Shelley MD [STAFF PHYSICIAN] - 1-2 days Time of Disposition: 23:00
[2024-09-08] MEDS: ONDANSETRON 4 MG ODT STARTER PACK 2 TAB BTL PO STA (23:13)
[2024-09-08 23:21] VITALS: BP 157/78; PULSE 84; RESP 19
== END 2024-09-08 23:25 | disposition home or self-care (01) ==
LOC: EC 18:43
DX: R19.7 Diarrhea, unspecified (principal); R10.9 Unspecified abdominal pain; R11.2 Nausea with vomiting, unspecified; Z91.048 Other nonmedicinal substance allergy status; Z88.6 Allergy status to analgesic agent; Z87.891 Personal history of nicotine dependence
CPT/HCPCS: 36415; 93005; 80053; 82150; 83605; 83690; 85025; 85610; 85730; 81001; 74177; 99284; 96374; 96375 ×2; 96361; 96376; J2405; J1885; S0119; Q9967; J2470

== ENCOUNTER → 2024-10-05 | Outpatient (CLI) | payer MEDICARE ==
[2024-10-05 15:22] LABS: Basophils # (A) 0.05 X 10*3/uL (0.00-0.10); Basophils % (A) 0.9 %; Eosinophils # (A) 0.34 X 10*3/uL (0.04-0.35); Eosinophils % (A) 6.3 %; HCT 45.1 % (37.2-46.3); HGB 14.5 g/dL (12.0-15.0); Lymphocytes # (A) 1.75 X 10*3/uL (0.90-5.00); Lymphocytes % (A) 32.6 %; MCH 30.6 pg (27.0-32.0); MCHC 32.2 g/dL (32.0-37.0); MCV 95.1 FL (80.0-97.0); Mean Platelet Volume 11.5 FL (9.5-12.2); Monocytes % (A) 9.3 %; NRBC Per 100 WBC 0 X 10*3/uL (0.00-0.01); Neutrophils # (A) 2.72 X 10*3/uL (1.80-7.70); Neutrophils % (A) 50.7 %; Platelet Count 215 X 10*3/uL (140-440); RBC 4.74 X 10*6/uL (4.10-5.20); WBC 5.37 X 10*3/uL (4.50-10.00)
[2024-10-05 16:01] LABS: ALT 29 U/L (8-44); AST 21 U/L (13-35); Albumin 3.7 g/dL (3.8-4.9); Albumin/Globulin Ratio 1.76 Ratio (1.60-3.17); Alkaline Phosphatase 61 U/L (41-126); BUN/Creat Ratio 15.67 Ratio (12.00-20.00); Blood Urea Nitrogen 9.4 mg/dL (9.0-27.0); Calcium 9.3 mg/dL (8.7-10.3); Carbon Dioxide 28.8 mmol/L (21.6-31.8); Chloride 102 mmol/L (96-109); Globulin 2.1 g/dL (1.6-3.3); Glucose 105 mg/dL (70-110); Potassium 3.2 mmol/L (3.5-5.5); Sodium 142 mmol/L (135-145); Total Bilirubin 0.4 mg/dL (0.3-1.2); Total Protein 5.8 g/dL (6.2-8.2)
[2024-10-06 09:02] LABS: Cryptosporidium Antigen Negative (Negative)
== END | disposition home or self-care (01) ==
LOC: LABWHC1 08:32
PROVIDERS: ATTEND Nurse Practitioner Family
DX: R19.7 Diarrhea, unspecified (principal)
CPT/HCPCS: 36415; 80053; 83516; 83630; 85025; 87045; 87046; 87324; 87328; 87329